=== PATIENT | female | born 1935 | race Caucasian/White ===

== ENCOUNTER → 2017-02-06 | Outpatient (CLI) | payer MEDICARE ==
[2017-02-06 16:37] LABS: Blood Urea Nitrogen 25 mg/dL (7-17); Non-African American GFR(MDRD) >60 (>60 ml/min/1.73 sqM)
--- NOTE | 2017-02-06 18:10 | CT ---
EXAMINATION TYPE: CT abdomen pelvis w con DATE OF EXAM: 02/06/2017 COMPARISON: NONE HISTORY: abdominal hematoma, pain from coughing, no injury CT DLP: 1475 mGycm Automated exposure control for dose reduction was used. TECHNIQUE: Helical acquisition of images was performed from the lung bases through the pelvis. CONTRAST: Performed with Oral Contrast and with IV Contrast, patient injected with 100 mL of Omnipaque 300. FINDINGS: Lung bases are clear of consolidation. There is no pleural effusion. Abdominal aorta is atheromatous. Liver shows no evidence of a mass. Bile ducts are not dilated. There are a few small cysts in the carmen er that measure up to 1 cm. Spleen pancreas gallbladder appear normal. Bile ducts are not dilated. Th ere is mild plaque formation on the abdominal aorta. There is aneurysm of the upper abdominal aorta m easures up to 3.6 cm. There is no adrenal mass. Kidneys show satisfactory contrast opacification. There is no hydronephrosi s. There are small bilateral cortical cysts that measure up to 1 cm. There is no retroperitoneal nina opathy. I see no intestinal wall thickening. There are no dilated loops. There is asymmetric thickeni ng of the anterior abdominal wall on the right side compared to the left consistent with intramuscula r hematoma. This measures up to 2 cm in thickness. There is no ascites. Bladder distends smoothly. I see no pelvic mass. The appendix appears normal. I see no bony destructive process. There is a degene rative first-degree L4-5 spondylolisthesis. There is moderate facet arthropathy at L4-5. I see no com pression fracture.: IMPRESSION: THERE IS THICKENING OF THE RIGHT ANTERIOR ABDOMINAL WALL CONSISTENT WITH INTRAMUSCULAR HEMATOMA. ATHEROSCLEROTIC VASCULAR DISEASE. UPPER ABDOMINAL AORTIC ANEURYSM. SMALL HEPATIC AND RENAL CYSTS.
== END | disposition home or self-care (01) ==
LOC: RADCTMAIN 15:29
PROVIDERS: ATTEND Internal Medicine Critical Care Medicine
DX: I71.4 Abdominal aortic aneurysm, without rupture (principal); I70.90 Unspecified atherosclerosis; N28.1 Cyst of kidney, acquired; K76.89 Other specified diseases of liver; R93.5 Abnormal findings on diagnostic imaging of other abdominal regions, including retroperitoneum
CPT/HCPCS: 82565; 84520; 74177; 36415; Q9967

== ENCOUNTER → 2017-03-02 | Outpatient (CLI) | payer MEDICARE ==
--- NOTE | 2017-03-03 09:33 | ECHOF ---
Referral Reason:R60.0 Edema MEASUREMENTS -------- HEIGHT: 165.1 cm WEIGHT: 77.1 kg BP: 136/70 IVSd: 1.0 cm (0.6 - 1.1) LVIDd: 5.3 cm (3.9 - 5.3) LVPWd: 1.1 cm (0.6 - 1.1) IVSs: 1.5 cm LVIDs: 2.5 cm LVPWs: 1.7 cm Ao Diam: 3.4 cm (2.0 - 3.7) AV Cusp: 1.9 cm (1.5 - 2.6) LA Diam: 3.5 cm (2.7 - 3.8) MV EXCURSION: 18.742 mm (> 18.000) MV EF SLOPE: 97 mm/s (70 - 150) EPSS: 0.3 cm MV E Brooks: 0.53 m/s MV DecT: 243 ms MV A Brooks: 0.78 m/s MV E/A Ratio: 0.68 RAP: 5.00 mmHg RVSP: 18.84 mmHg FINDINGS -------- Sinus rhythm. This was a technically good study. Left ventricular wall thickness is normal. Overall left ventricular systolic function is low-normal with, an EF between 50 - 55 %. Mid Basal Septal Hypokinesis. The right ventricle is normal in size and function. The left atrium is normal in size. The right atrium is normal in size. The aortic valve is trileaflet, and appears structurally normal. No aortic stenosis or regurgitation. The mitral valve leaflets are mildly thickened. There is trace mitral regurgitation. Trace tricuspid regurgitation present. The right ventricular systolic pressure, as measured by Doppler, is 18.84mmHg. Pulmonic valve appears structurally normal. The aortic root size is normal. The pericardium is normal. CONCLUSIONS -------- 1. Sinus rhythm. 2. The mitral valve leaflets are mildly thickened. 3. There is trace mitral regurgitation. 4. Trace tricuspid regurgitation present. 5. The right ventricular systolic pressure, as measured by Doppler, is 18.84mmHg. 6. Pulmonic valve appears structurally normal. 7. The aortic root size is normal. 8. The pericardium is normal. 9. This was a technically good study. 10. Left ventricular wall thickness is normal. 11. Overall left ventricular systolic function is low-normal with, an EF between 50 - 55 %. 12. Mid Basal Septal Hypokinesis. 13. The right ventricle is normal in size and function. 14. The left atrium is normal in size. 15. The right atrium is normal in size. 16. The aortic valve is trileaflet, and appears structurally normal. No aortic stenosis or regurgitation. PRODUCT EXAMINER: Nicolle Paige RDCS
== END | disposition home or self-care (01) ==
LOC: RADECHMAIN 13:02
PROVIDERS: ATTEND Family Medicine
DX: I08.1 Rheumatic disorders of both mitral and tricuspid valves (principal)
CPT/HCPCS: 93306

== ENCOUNTER → 2018-03-29 | Outpatient (CLI) | payer MEDICARE ==
--- NOTE | 2018-03-29 10:35 | US ---
EXAMINATION TYPE: US abdomen complete DATE OF EXAM: 03/29/2018 COMPARISON: CT CLINICAL HISTORY: K80.20 CALCULUS OF GALLBLADDER. patient had MRI at [facility] that showed gallstones and AA A. EXAM MEASUREMENTS: Liver Length: 13.1 cm Gallbladder Wall: 0.3 cm CBD: 0.6 cm Spleen: 10.8 cm Right Kidney: 10.2 x 4.2 x 5.2 cm Left Kidney: 11.3 x 5.6 x 5.6 cm Aorta: Prox 2.8 x 3.3 cm, Mid 2.8 x 2.6 cm, Distal 2.6 x 2.3 cm. Pancreas: wnl Liver: wnl Gallbladder: several tiny stones/gravel with shadowing. Evidence for sonographic Plummer's sign: No CBD: wnl Spleen: wnl Right Kidney: No hydronephrosis or masses seen Left Kidney: tiny cyst measures 1.1 x 1.0 x 0.9 cm. Upper IVC: wnl Abd Aorta: calcified, measures 3.3 cm in transverse plane proximally. The liver is homogenous. The intrahepatic portion of the IVC and proximal abdominal aorta are within normal limits. Common bile duct is unremarkable. The visualized portions of the pancreas are homog enous. The spleen is unremarkable. Kidneys are symmetric and free of hydronephrosis. No renal lesi ons are seen. IMPRESSION: 1. Small gallstones identified. 2. Abdominal aortic aneurysm. 3. Left renal cyst.
--- NOTE | 2018-04-02 13:35 | US ---
EXAMINATION TYPE: US venous doppler duplex LE DATE OF EXAM: 03/29/2018 9:07 AM COMPARISON: NONE CLINICAL HISTORY: R60.0 EDEMA. Bilateral edema SIDE PERFORMED: Bilateral TECHNIQUE: The lower extremity deep venous system is examined utilizing real time linear array sonog natasha with graded compression, doppler sonography and color-flow sonography. VESSELS IMAGED: External Iliac Vein (EIV) Common Femoral Vein Deep Femoral Vein Greater Saphenous Vein * Femoral Vein Popliteal Vein Proximal Calf Veins (* superficial vessels) Right Leg: Negative for DVT Left Leg: Negative for DVT Grayscale, color doppler, spectral doppler imaging performed of the deep veins of the bilateral lower extremities. There is normal flow, compressibility, vascular waveforms. IMPRESSION: No ultrasound evidence for acute DVT in either lower extremity.
== END | disposition home or self-care (01) ==
LOC: RADUSWWP 09:02
PROVIDERS: ATTEND Family Medicine
DX: K80.20 Calculus of gallbladder without cholecystitis without obstruction (principal); I71.4 Abdominal aortic aneurysm, without rupture; N28.1 Cyst of kidney, acquired; R60.0 Localized edema
CPT/HCPCS: 76700; 93970

== ENCOUNTER → 2018-10-09 | Outpatient (CLI) | payer MEDICARE ==
--- NOTE | 2018-10-09 14:55 | US ---
EXAMINATION TYPE: US duplex aorta DATE OF EXAM: 10/09/2018 COMPARISON: US 03/29/2018, CT 2017 CLINICAL HISTORY: I71.4 AAA. Proximal aorta AAA EXAM MEASUREMENTS: Abdominal Aorta: Proximal: 3.1 x 3.2cm Mid: 1.9 x 2.1cm Distal: 1.8 x 2.2cm Right Iliac: 0.7 x 1.1cm Left Iliac: 0.8 x 1.1cm Proximal aorta AAA measuring 3.1 x 3.2cm IMPRESSION: 1. Fusiform prominence proximal abdominal aorta measuring slightly greater than 3 cm. This is stable from comparison ultrasound.
== END | disposition home or self-care (01) ==
LOC: RADUSWWP 09:44
PROVIDERS: ATTEND Family Medicine
DX: I71.4 Abdominal aortic aneurysm, without rupture (principal)
CPT/HCPCS: 93979

== ENCOUNTER → 2018-11-06 | Outpatient (CLI) | payer MEDICARE ==
--- NOTE | 2018-11-08 09:49 | MM ---
Reason for exam: screening (asymptomatic). Last mammogram was performed 4 years and 7 months ago. History: Patient is postmenopausal. Physical Findings: A clinical breast exam by your physician is recommended on an annual basis and results should be correlated with mammographic findings. MG 3D Screening Mammo W/Cad Bilateral CC and MLO view(s) were taken. Prior study comparison: March 27, 2014, bilateral MG diagnostic mammo w CAD [facility]ANO. February 24, 2004, right breast special view mammogram. The breast tissue is almost entirely fat. No significant changes when compared with prior studies. ASSESSMENT: Benign, BI-RAD 2 RECOMMENDATION: Routine screening mammogram of both breasts in 1 year.
== END | disposition home or self-care (01) ==
LOC: RADMAMWWP 13:20
PROVIDERS: ATTEND Family Medicine
DX: Z12.31 Encounter for screening mammogram for malignant neoplasm of breast (principal)
CPT/HCPCS: 77063; 77067

== ENCOUNTER 2020-08-08 11:58 | Emergency (ER) | payer MEDICARE ==
[2020-08-08 12:18] VITALS: BP 138/83; PULSE 76; RESP 20; TEMP 98.1
[2020-08-08] MEDS ORDERED: SODIUM CHLORIDE 0.9% 1,000 ML IV ONE (13:36)
--- NOTE | 2020-08-08 13:43 | ED ---
Nausea/Vomiting/Diarrhea HPI - General Chief complaint: Nausea/Vomiting/Diarrhea Stated complaint: Diarrhea Time Seen by Provider: 08/08/20 13:06 Source: patient Mode of arrival: wheelchair Limitations: no limitations - History of Present Illness Initial comments: 84-year-old female patient presents to the emergency department today for evaluation of diarrhea. States she started having symptoms on . States she is having multiple episodes of watery diarrhea throughout each day. States she is unable to count how many episodes. Denies any blood in the stool. Denies abdominal pain. Denies any nausea, vomiting, or abdominal pain. Denies any new medications. Denies any recent antibiotic use. States she does have back problems and has been getting epidural injections. Denies any sick contacts or recent travel. Patient denies any recent rash, cough, shortness of breath, chest pain, numbness, tingling, dizziness, weakness, hematuria, dysuria, urinary urgency, urinary frequency, headache, visual changes, or any other complaints. - Related Data Home Medications Medication Instructions Recorded Confirmed Atenolol [Tenormin] 100 mg PO DAILY 08/08/20 08/08/20 Budesonide/Formoterol Fumarate 2 puff INHALATION BID 08/08/20 08/08/20 [Symbicort 160-4.5 Mcg Inhaler] Clopidogrel [Plavix] 75 mg PO DAILY 08/08/20 08/08/20 Diclofenac Sodium [Voltaren 1 applic TOPICAL DAILY 08/08/20 08/08/20 Arthritis Pain 1% Gel] Naproxen Sodium [Aleve] 440 mg PO BID 08/08/20 08/08/20 Statin(Unknown) 1 tab PO DAILY 08/08/20 08/08/20 Previous Rx's Medication Instructions Recorded Diphenox-Atrop 2.5-0.025 mg 1 tab PO QID PRN 3 Days #12 tab 08/08/20 [Lomotil] Diphenoxylate HCl/Atropine 1 tab PO QID PRN 3 Days #12 tab 08/08/20 [Lomotil 2.5-0.025 mg Tablet] Allergies Allergy/AdvReac Type Severity Reaction Status Date / Time No Known Allergies Allergy Verified 08/08/20 15:34 Review of Systems ROS Statement: Those systems with pertinent positive or pertinent negative responses have been documented in the HPI. ROS Other: All systems not noted in ROS Statement are negative. Past Medical History Past Medical History: COPD History of Any Multi-Drug Resistant Organisms: None Reported Past Surgical History: Orthopedic Surgery Additional Past Surgical History / Comment(s): lt ankle Past Psychological History: No Psychological Hx Reported Smoking Status: Current every day smoker Past Alcohol Use History: None Reported Past Drug Use History: None Reported General Exam Limitations: no limitations General appearance: alert, in no apparent distress, other (This is a well- developed, well-nourished elderly female patient in no acute distress. Vital signs upon presentation are temperature 98.1F, pulse 76, respirations 20, blood pressure 138/83, pulse ox 94% on room air.) Eye exam: Present: normal appearance, PERRL, EOMI. Absent: scleral icterus, conjunctival injection, periorbital swelling ENT exam: Present: normal exam, normal oropharynx, mucous membranes moist Respiratory exam: Present: normal lung sounds bilaterally. Absent: respiratory distress, wheezes, rales, rhonchi, stridor Cardiovascular Exam: Present: regular rate, normal rhythm, normal heart sounds. Absent: systolic murmur, diastolic murmur, rubs, gallop, clicks GI/Abdominal exam: Present: soft, normal bowel sounds. Absent: distended, tenderness, guarding, rebound, rigid Neurological exam: Present: alert, oriented X3, CN II-XII intact Psychiatric exam: Present: normal affect, normal mood Skin exam: Present: warm, dry, intact, normal color. Absent: rash Course Vital Signs 08/08/20 12:15 Temperature 98.1 F Pulse Rate 76 Respiratory 20 Rate Blood Pressure 138/83 O2 Sat by Pulse 94 L Oximetry Medical Decision Making - Medical Decision Making 84 year-old female patient presents to the emergency department for evaluation of diarrhea x2 days. She reports multiple episodes of watery diarrhea each day. Denies any fever or chills denies abdominal pain. Labs reviewed and are unremarkable. Stool was sent for C. diff was negative. Is also sent for culture. Coronavirus test was negative. I did send prescription for Lomotil to the pharmacy. She is instructed to increase fluids and to rest patient instructed to follow-up with her primary care physician for recheck in 1-2 days. She verbalizes understanding and agrees with this plan. - Lab Data Result diagrams: 08/08/20 14:03 08/08/20 14:03 Lab Results 08/08/20 08/08/20 08/08/20 Range/Units 14:03 14:03 14:03 WBC 4.2 (3.8-10.6) k/uL RBC 4.87 (3.80-5.40) m/uL Hgb 15.5 (11.4-16.0) gm/dL Hct 45.5 (34.0-46.0) % MCV 93.6 (80.0-100.0) fL MCH 31.9 (25.0-35.0) pg MCHC 34.1 (31.0-37.0) g/dL RDW 13.9 (11.5-15.5) % Plt Count 181 (150-450) k/uL MPV 7.9 Neutrophils % 70 % Lymphocytes % 14 % Monocytes % 11 % Eosinophils % 2 % Basophils % 1 % Neutrophils # 2.9 (1.3-7.7) k/uL Lymphocytes # 0.6 L (1.0-4.8) k/uL Monocytes # 0.5 (0-1.0) k/uL Eosinophils # 0.1 (0-0.7) k/uL Basophils # 0.0 (0-0.2) k/uL Sodium 137 (137-145) mmol/L Potassium 4.0 (3.5-5.1) mmol/L Chloride 108 H (98-107) mmol/L Carbon Dioxide 23 (22-30) mmol/L Anion Gap 6 mmol/L BUN 16 (7-17) mg/dL Creatinine 0.65 (0.52-1.04) mg/dL Est GFR (CKD-EPI)AfAm >90 (>60 ml/min/1.73 sqM) Est GFR (CKD-EPI)NonAf 83 (>60 ml/min/1.73 sqM) Glucose 90 (74-99) mg/dL Calcium 9.0 (8.4-10.2) mg/dL Magnesium 2.2 (1.6-2.3) mg/dL Total Bilirubin 1.2 (0.2-1.3) mg/dL AST 27 (14-36) U/L ALT 17 (4-34) U/L Alkaline Phosphatase 92 (38-126) U/L Total Protein 7.1 (6.3-8.2) g/dL Albumin 3.8 (3.5-5.0) g/dL C. difficile (EIA) Intrp (Negative) Coronavirus (PCR) Not Detected (Not Detectd) 08/08/20 Range/Units 15:44 WBC (3.8-10.6) k/uL RBC (3.80-5.40) m/uL Hgb (11.4-16.0) gm/dL Hct (34.0-46.0) % MCV (80.0-100.0) fL MCH (25.0-35.0) pg MCHC (31.0-37.0) g/dL RDW (11.5-15.5) % Plt Count (150-450) k/uL MPV Neutrophils % % Lymphocytes % % Monocytes % % Eosinophils % % Basophils % % Neutrophils # (1.3-7.7) k/uL Lymphocytes # (1.0-4.8) k/uL Monocytes # (0-1.0) k/uL Eosinophils # (0-0.7) k/uL Basophils # (0-0.2) k/uL Sodium (137-145) mmol/L Potassium (3.5-5.1) mmol/L Chloride (98-107) mmol/L Carbon Dioxide (22-30) mmol/L Anion Gap mmol/L BUN (7-17) mg/dL Creatinine (0.52-1.04) mg/dL Est GFR (CKD-EPI)AfAm (>60 ml/min/1.73 sqM) Est GFR (CKD-EPI)NonAf (>60 ml/min/1.73 sqM) Glucose (74-99) mg/dL Calcium (8.4-10.2) mg/dL Magnesium (1.6-2.3) mg/dL Total Bilirubin (0.2-1.3) mg/dL AST (14-36) U/L ALT (4-34) U/L Alkaline Phosphatase (38-126) U/L Total Protein (6.3-8.2) g/dL Albumin (3.5-5.0) g/dL C. difficile (EIA) Intrp Negative (Negative) Coronavirus (PCR) (Not Detectd) Disposition Clinical Impression: Diarrhea Disposition: HOME SELF-CARE Condition: Good Instructions (If sedation given, give patient instructions): Acute Diarrhea (ED) Additional Instructions: Increase fluids. Rest. Follow-up through primary care physician for recheck in 1-2 days. Return to the emergency department immediately for any new, worsening, or concerning symptoms Prescriptions: Diphenox-Atrop 2.5-0.025 mg [Lomotil] 1 tab PO QID PRN 3 Days #12 tab PRN Reason: Diarrhea Diphenoxylate HCl/Atropine [Lomotil 2.5-0.025 mg Tablet] 1 tab PO QID PRN 3 Days #12 tab PRN Reason: Diarrhea Is patient prescribed a controlled substance at d/c from ED?: No Referrals: Calin Lyle DO [Primary Care Provider] - 1-2 days Time of Disposition: 17:16
[2020-08-08 14:15] LABS: Basophils % (A) 1 %; Eosinophils # (A) 0.1 k/uL (0-0.7); Eosinophils % (A) 2 %; HCT 45.5 % (34.0-46.0); HGB 15.5 gm/dL (11.4-16.0); Lymphocytes # (A) 0.6 k/uL (1.0-4.8); Lymphocytes % (A) 14 %; MCH 31.9 pg (25.0-35.0); MCHC 34.1 g/dL (31.0-37.0); MCV 93.6 fL (80.0-100.0); Mean Platelet Volume 7.9; Monocytes # (A) 0.5 k/uL (0-1.0); Monocytes % (A) 11 %; Neutrophils # (A) 2.9 k/uL (1.3-7.7); Neutrophils % (A) 70 %; Platelet Count 181 k/uL (150-450); RBC 4.87 m/uL (3.80-5.40); RDW 13.9 % (11.5-15.5); WBC 4.2 k/uL (3.8-10.6)
[2020-08-08 14:26] LABS: ALT 17 U/L (4-34); AST 27 U/L (14-36); African American GFR (CKD) >90 (>60 ml/min/1.73 sqM); Albumin 3.8 g/dL (3.5-5.0); Alkaline Phosphatase 92 U/L (38-126); Anion Gap 6 mmol/L; Blood Urea Nitrogen 16 mg/dL (7-17); Carbon Dioxide 23 mmol/L (22-30); Chloride 108 mmol/L (98-107); Glucose 90 mg/dL (74-99); Magnesium 2.2 mg/dL (1.6-2.3); Non-African American GFR(CKD) 83 (>60 ml/min/1.73 sqM); Sodium 137 mmol/L (137-145); Total Bilirubin 1.2 mg/dL (0.2-1.3); Total Protein 7.1 g/dL (6.3-8.2)
== END 2020-08-08 17:57 | disposition home or self-care (01) ==
LOC: EC 11:58
DX: Z03.818 Encounter for observation for suspected exposure to other biological agents ruled out (principal); R19.7 Diarrhea, unspecified; J44.9 Chronic obstructive pulmonary disease, unspecified; F17.200 Nicotine dependence, unspecified, uncomplicated; Z79.51 Long term (current) use of inhaled steroids
CPT/HCPCS: 36415; 80053; 83630; 83735; 85025; 87045; 87046; 87324; 87635; 96360; 96361; 99284

== ENCOUNTER 2020-08-13 19:19 | Observation (INO) | payer MEDICARE ==
[2020-08-13] MEDS: SODIUM CHLORIDE 0.9% 1,000 ML IV SCH (20:11)
[2020-08-13 20:27] LABS: Basophils % (A) 0 %; Eosinophils % (A) 0 %; HCT 42.1 % (34.0-46.0); HGB 13.9 gm/dL (11.4-16.0); Lymphocytes # (A) 0.5 k/uL (1.0-4.8); Lymphocytes % (A) 5 %; MCH 30.5 pg (25.0-35.0); MCHC 32.9 g/dL (31.0-37.0); MCV 92.6 fL (80.0-100.0); Mean Platelet Volume 7.7; Monocytes # (A) 0.4 k/uL (0-1.0); Monocytes % (A) 4 %; Neutrophils % (A) 91 %; Platelet Count 220 k/uL (150-450); RBC 4.55 m/uL (3.80-5.40); RDW 14.4 % (11.5-15.5)
[2020-08-13 20:35] LABS: ALT 47 U/L (4-34); AST 93 U/L (14-36); African American GFR (CKD) >90 (>60 ml/min/1.73 sqM); Albumin 3.5 g/dL (3.5-5.0); Alkaline Phosphatase 135 U/L (38-126); Anion Gap 7 mmol/L; Blood Urea Nitrogen 13 mg/dL (7-17); Calcium 8.5 mg/dL (8.4-10.2); Carbon Dioxide 23 mmol/L (22-30); Chloride 103 mmol/L (98-107); Glucose 101 mg/dL (74-99); Lipase <10 U/L (23-300); Non-African American GFR(CKD) 83 (>60 ml/min/1.73 sqM); Potassium 3.7 mmol/L (3.5-5.1); Sodium 133 mmol/L (137-145); Total Bilirubin 2.3 mg/dL (0.2-1.3); Total Protein 6.6 g/dL (6.3-8.2)
--- NOTE | 2020-08-13 21:06 | CT ---
EXAMINATION TYPE: CT abdomen pelvis w con DATE OF EXAM: 08/13/2020 COMPARISON: 02/06/2017 HISTORY: diarrhea x1 week CT DLP: 872.5 mGycm Automated exposure control for dose reduction was used. TECHNIQUE: Helical acquisition of images was performed from the lung bases through the pelvis. CONTRAST: Performed without Oral Contrast and with IV Contrast, patient injected with 100 mL of Isovu e 300. FINDINGS: LUNG BASES: There is mild cardiomegaly with left ventricular and left atrial dilation and with modera te marked left and right coronary calcifications. LIVER/GB: No significant abnormality is appreciated. PANCREAS: No significant abnormality is seen. SPLEEN: No significant abnormality is seen. ADRENALS: No significant abnormality is seen. KIDNEYS: No significant abnormality is seen. PERITONEAL CAVITY: Small volume of peritoneal fluid in the pelvis dependently noted. RETROPERITONEAL ADENOPATHY: None visualized REPRODUCTIVE ORGANS: No significant abnormality is seen URINARY BLADDER: No significant abnormality is seen. PELVIC ADENOPATHY: None visualized. OSSEOUS STRUCTURES: No significant abnormality is seen. BOWEL: There is no bowel obstruction. The appendix is negative. There is indistinctness to the desc ending colon and proximal sigmoid, with edematous reticulation throughout its mesocolon. There is no focal diverticulitis. No pneumatosis or pneumoperitoneum VASCULATURE: There are marked nonaneurysmal atherosclerotic changes throughout the arterial anatomy o f the abdomen and pelvis. The celiac axis, SMA, and RAISA are patent, but the celiac axis shows proxima l stenosis with poststenotic dilatation, and the RAISA shows ostial stenosis. Venous structures unremar kable. IMPRESSION: 1. MILD SIGMOID AND DESCENDING COLITIS PATTERN, SUGGESTING INFECTIOUS/INFLAMMATORY ETIOLOGY. 2. SMALL VOLUME CUL-DE-SAC PERITONEAL FLUID.
[2020-08-13 21:35] LABS: T4, Free (Free Thyroxine) 0.49 ng/dL (0.78-2.19)
[2020-08-13] MEDS ORDERED: metroNIDAZOLE-NS PMX 500 MG in SALINE 1 100ML.BAG IVPB STA (21:35)
[2020-08-13] MEDS ORDERED: cefTRIAXone IN SWFI 1,000 MG/10 ML SYRINGE IVP STA (21:35)
--- NOTE | 2020-08-13 21:35 | ED ---
Nausea/Vomiting/Diarrhea HPI - General Chief complaint: Nausea/Vomiting/Diarrhea Stated complaint: Revisit,diarrhea Time Seen by Provider: 08/13/20 19:25 Source: patient, family Mode of arrival: ambulatory Limitations: no limitations - History of Present Illness Initial comments: Is an 84-year-old female presents with history of COPD who presents to the emergency room with reported loose stool. According to the patient she started having diarrhea on . She was seen in the emergency department on Monday DC home with Stefan. States she's been attempting to take the medications as directed however it hasn't helped. Denies any black, tarry or sticky stools. No history of bowel issues in the past. She denies any abdominal pain. Admits to nausea. No vomiting. Family states that she lives alone and hasn't been eating or drinking therefore they're concerned for her well-being. Patient denies any changes in her urination. No back or flank pain. No other alleviating, precipitating or modifying factors - Related Data Home Medications Medication Instructions Recorded Confirmed Budesonide/Formoterol Fumarate 2 puff INHALATION BID 08/08/20 08/13/20 [Symbicort 160-4.5 Mcg Inhaler] Clopidogrel [Plavix] 75 mg PO DAILY 08/08/20 08/13/20 Diclofenac Sodium [Voltaren 1 applic TOPICAL DAILY 08/08/20 08/13/20 Arthritis Pain 1% Gel] Previous Rx's Medication Instructions Recorded Cephalexin [Keflex] 250 mg PO TID #6 cap 08/15/20 Levothyroxine Sodium [Synthroid] 75 mcg PO DAILY@0630 #30 tab 08/15/20 Lisinopril-Hctz 20-12.5 mg 1 tab PO BID #60 tab 08/15/20 [Zestoretic 20-12.5] Loperamide [Imodium] 2 mg PO QID PRN #30 cap 08/15/20 Naproxen Sodium [Aleve] 220 mg PO BID #0 08/15/20 Nicotine 21Mg/24Hr Patch [Habitrol] 1 patch TRANSDERM DAILY #14 patch 08/15/20 Psyllium Husk 100% [Metamucil 6 gm PO BID #60 packet 08/15/20 Packet] metroNIDAZOLE [Flagyl] 500 mg PO TID #21 tab 08/15/20 Allergies Allergy/AdvReac Type Severity Reaction Status Date / Time No Known Allergies Allergy Verified 08/13/20 22:29 Review of Systems ROS Statement: Those systems with pertinent positive or pertinent negative responses have been documented in the HPI. ROS Other: All systems not noted in ROS Statement are negative. Past Medical History Past Medical History: COPD History of Any Multi-Drug Resistant Organisms: None Reported Past Surgical History: Orthopedic Surgery Additional Past Surgical History / Comment(s): lt ankle Past Psychological History: No Psychological Hx Reported Smoking Status: Current every day smoker Past Alcohol Use History: Rare Past Drug Use History: None Reported General Exam Limitations: no limitations General appearance: alert, in no apparent distress Head exam: Present: atraumatic, normocephalic, normal inspection Eye exam: Present: normal appearance, PERRL, EOMI. Absent: scleral icterus, conjunctival injection, periorbital swelling ENT exam: Present: normal exam, mucous membranes dry Neck exam: Present: normal inspection. Absent: tenderness, meningismus, lymphadenopathy Respiratory exam: Present: normal lung sounds bilaterally. Absent: respiratory distress, wheezes, rales, rhonchi, stridor Cardiovascular Exam: Present: regular rate, normal rhythm, normal heart sounds. Absent: systolic murmur, diastolic murmur, rubs, gallop, clicks GI/Abdominal exam: Present: soft, normal bowel sounds. Absent: distended, tenderness, guarding, rebound, rigid Extremities exam: Present: normal inspection, full ROM, normal capillary refill. Absent: tenderness, pedal edema, joint swelling, calf tenderness Back exam: Present: normal inspection Neurological exam: Present: alert, oriented X3, CN II-XII intact Psychiatric exam: Present: normal affect, normal mood Skin exam: Present: warm, dry, intact, normal color. Absent: rash Course Vital Signs 08/13/20 08/13/20 08/14/20 19:23 23:26 06:25 Temperature 97.8 F Pulse Rate 95 63 Pulse Rate [ Right Buncher Operator] Respiratory 18 17 Rate Blood Pressure 117/71 125/75 137/84 Blood Pressure [Right Arm] O2 Sat by Pulse 98 92 L Oximetry 08/14/20 08:00 Temperature 97.1 F L Pulse Rate Pulse Rate [ 68 Right Buncher Operator] Respiratory 18 Rate Blood Pressure Blood Pressure 124/76 [Right Arm] O2 Sat by Pulse 97 Oximetry Medical Decision Making - Medical Decision Making The patient is placed into room 19. A thorough history and physical exam was performed. Peripheral IV is established and the patient was given 75 mL of saline per hour. I did review the patient's stool studies. She was negative for C. diff. Lactoferrin does come back positive. Because of this I did recommend repeating the patient's laboratory studies and CT her abdomen and pelvis even though she does have abdominal pain. Lab studies demonstrate a sodium of 133. Free T4 is low at 0.49. CT of the patient's abdomen and pelvis is performed which demonstrates mild sigmoid and descending colitis. Suggesting infectious versus inflammatory etiology. I discussed results of Dr. Jonas. Patient was given Rocephin and Flagyl. Did recommend hospitalization for which the patient did agree to. Patient is currently awaiting a bed on the floor - Lab Data Result diagrams: 08/14/20 08:13 08/14/20 08:18 Lab Results 08/13/20 08/13/20 08/13/20 Range/Units 20:08 20:08 20:08 WBC 11.0 H (3.8-10.6) k/uL RBC 4.55 (3.80-5.40) m/uL Hgb 13.9 (11.4-16.0) gm/dL Hct 42.1 (34.0-46.0) % MCV 92.6 (80.0-100.0) fL MCH 30.5 (25.0-35.0) pg MCHC 32.9 (31.0-37.0) g/dL RDW 14.4 (11.5-15.5) % Plt Count 220 (150-450) k/uL MPV 7.7 Neutrophils % 91 % Lymphocytes % 5 % Monocytes % 4 % Eosinophils % 0 % Basophils % 0 % Neutrophils # 10.0 H (1.3-7.7) k/uL Lymphocytes # 0.5 L (1.0-4.8) k/uL Monocytes # 0.4 (0-1.0) k/uL Eosinophils # 0.0 (0-0.7) k/uL Basophils # 0.0 (0-0.2) k/uL Sodium 133 L (137-145) mmol/L Potassium 3.7 (3.5-5.1) mmol/L Chloride 103 (98-107) mmol/L Carbon Dioxide 23 (22-30) mmol/L Anion Gap 7 mmol/L BUN 13 (7-17) mg/dL Creatinine 0.64 (0.52-1.04) mg/dL Est GFR (CKD-EPI)AfAm >90 (>60 ml/min/1.73 sqM) Est GFR (CKD-EPI)NonAf 83 (>60 ml/min/1.73 sqM) Glucose 101 H (74-99) mg/dL Plasma Lactic Acid Ryan 1.4 (0.7-2.0) mmol/L Calcium 8.5 (8.4-10.2) mg/dL Total Bilirubin 2.3 H (0.2-1.3) mg/dL AST 93 H (14-36) U/L ALT 47 H (4-34) U/L Alkaline Phosphatase 135 H (38-126) U/L Total Protein 6.6 (6.3-8.2) g/dL Albumin 3.5 (3.5-5.0) g/dL Lipase <10 L (23-300) U/L TSH 43.200 H (0.465-4.680) mIU/L Free T4 0.49 L (0.78-2.19) ng/dL Disposition Clinical Impression: Diarrhea, Nausea, Colitis Disposition: ADMITTED IP TO THIS [facility] Condition: Stable Is patient prescribed a controlled substance at d/c from ED?: No Decision to Admit Reason: Admit from EC Decision Date: 08/13/20 Decision Time: 21:34
[2020-08-13] MEDS ORDERED: NALOXONE 0.4 MG/ML 1 ML VIAL IV PRN (21:36)
[2020-08-13] MEDS ORDERED: NICOTINE 14MG/24HR PATCH TRANSDERM STA (22:35)
[2020-08-14 02:07] LABS: Amorphous Sediment,Urine Rare /hpf; Appearance,Urine Clear (Clear); Bacteria,Urine Rare /hpf; Bilirubin,Urine Negative (Negative); Blood,Urine Negative (Negative); Color,Urine Yellow; Glucose,Urine (UA) Negative (Negative); Ketones,Urine 1+ (Negative); Leukocyte Esterase,Urine Negative (Negative); Mucus,Urine Rare /hpf; Nitrite,Urine Positive (Negative); Protein,Urine Trace (Negative); RBC,Urine 1 /hpf (0-5); Squamous Epithelial Cell,Urine 3 /hpf (0-4); Urobilinogen,Urine <2.0 mg/dL (<2.0); WBC,Urine 3 /hpf (0-5)
[2020-08-14 02:20] LABS: Specific Gravity,Urine >1.050 (1.001-1.035)
[2020-08-14 08:37] LABS: Basophils % (A) 0 %; Eosinophils # (A) 0.1 k/uL (0-0.7); Eosinophils % (A) 1 %; HCT 40.8 % (34.0-46.0); Lymphocytes # (A) 0.6 k/uL (1.0-4.8); Lymphocytes % (A) 8 %; MCHC 34.4 g/dL (31.0-37.0); Mean Platelet Volume 7.4; Monocytes # (A) 0.4 k/uL (0-1.0); Monocytes % (A) 5 %; Neutrophils # (A) 7.1 k/uL (1.3-7.7); Neutrophils % (A) 86 %; Platelet Count 204 k/uL (150-450); RBC 4.39 m/uL (3.80-5.40); RDW 13.9 % (11.5-15.5); WBC 8.2 k/uL (3.8-10.6)
[2020-08-14 08:51] LABS: ALT 67 U/L (4-34); AST 109 U/L (14-36); African American GFR (CKD) >90 (>60 ml/min/1.73 sqM); Albumin 3.3 g/dL (3.5-5.0); Alkaline Phosphatase 175 U/L (38-126); Anion Gap 6 mmol/L; Bilirubin, Delta 1.1 mg/dL (0.0-0.2); Bilirubin,Unconjugated 0.8 mg/dL (0.0-1.1); Blood Urea Nitrogen 10 mg/dL (7-17); Calcium 8.5 mg/dL (8.4-10.2); Carbon Dioxide 24 mmol/L (22-30); Chloride 104 mmol/L (98-107); Glucose 97 mg/dL (74-99); Non-African American GFR(CKD) 85 (>60 ml/min/1.73 sqM); Potassium 3.2 mmol/L (3.5-5.1); Sodium 134 mmol/L (137-145); Total Bilirubin 1.9 mg/dL (0.2-1.3); Total Protein 6.3 g/dL (6.3-8.2)
[2020-08-14] MEDS ORDERED: NAPROXEN 250 MG TAB PO SCH (10:45)
[2020-08-14] MEDS: DICLOFENAC SODIUM GEL 100 GM TUBE TOPICAL SCH (11:04)
[2020-08-14] MEDS: CLOPIDOGREL 75 MG TAB PO SCH (11:05)
[2020-08-14] MEDS: SODIUM CHLORIDE 0.9% 1,000 ML IV SCH (11:17)
[2020-08-14] MEDS: SYMBICORT 160-4.5 MCG INHALER INHALATION SCH ×2 (13:40→20:43)
[2020-08-14] MEDS ORDERED: LOPERAMIDE 2 MG CAP PO PRN (14:06)
[2020-08-14] MEDS: NICOTINE 21MG/24HR PATCH TRANSDERM SCH (16:27)
[2020-08-14] MEDS: CEPHALEXIN 250 MG CAP PO SCH ×2 (16:27→21:06)
[2020-08-14] MEDS: metroNIDAZOLE 500 MG TAB PO SCH ×2 (16:27→21:06)
[2020-08-14] MEDS: NAPROXEN 250 MG TAB PO SCH (21:05)
[2020-08-14] MEDS: PSYLLIUM HUSK 100% 6 GM PACKET PO SCH (21:06)
[2020-08-14] MEDS ORDERED: LEVOTHYROXINE 75 MCG TAB PO SCH (21:24)
[2020-08-14] MEDS ORDERED: ENOXAPARIN 40 MG/0.4 ML SYRINGE SQ SCH (21:30)
[2020-08-14] MEDS ORDERED: METOPROLOL TARTRATE 12.5 MG TAB PO SCH (21:30)
--- NOTE | 2020-08-14 22:09 | P.HPIM ---
History of Present Illness H&P Date: 08/14/20 Chief Complaint: Diarrhea History of presenting complaint: This is a 84-year-old patient. Who lives by herself. Does use a walker to get about. For about 2 weeks she's been having one or 2 bowel movements a day. She describes as explosive loose. No blood. No abdominal pain. No nausea vomiting. Able to eat okay. No fever no chills. She was here in the ER about 5 days ago. Managed conservatively. Family thinks not been eating. Patient tells me she is hungry. She is a long-standing smoker. No abdominal bloating. No history of travel Review of systems: GEN.: Tired EYES: None HEENT: None NECK: None RESPIRATORY: None CARDIOVASCULAR: None GASTROINTESTINAL: As above GENITOURINARY: None MUSCULOSKELETAL: Joint pains LYMPHATICS: None HEMATOLOGICAL: None PSYCHIATRY: None NEUROLOGICAL: Uses a walker Past medical history to include: COPD, hypertension, osteoarthritis Family history: Reviewed, noncontributory to presentation Physical examination: VITAL SIGNS: 97.8, 95, 18, 117/71, 98% room air GENERAL: BMI 25.8,. Sitting at the edge of the bed, eating EYES: Pupils equal. Conjunctiva normal. HEENT: External appearance of nose and ears normal, oral cavity grossly normal. NECK: JVD not raised; masses not palpable. HEART: First and second heart sounds are normal; no edema. LUNGS: Respiratory rate normal; decreased breath sounds. ABDOMEN: Soft, nontender, liver spleen not palpable, no masses palpable. PSYCH: Alert and oriented x3; mood and affect normal MUSCULAR skeletal: Evidence of OA. NEUROLOGICAL: Cranial nerves grossly intact; no facial asymmetry, power and sensation grossly intact. LYMPHATICS: No lymph nodes palpable in the axilla and neck, INVESTIGATIONS, reviewed in the clinical context: White count 11 hemoglobin 13.9 potassium 3.7 creatinine 0.64 bilirubin 2.3 AST 93 ALT 47 TSH 43.2. T4 0.49 Computed tomography scan of the abdomen-that is indistinctness to the descending colon and proximal sigmoid with 80 medicine reticulation throughout the mesocolon Assessment: -Patient been having about one or 2 loose bowel movements for last about 2 weeks. No blood. No abdominal pain. No vomiting. Appetite appears to be fair. Computed tomography scan is showing some evidence of mild colitis. There is no fever no chills. -COPD in a current smoker -Chronic nicotine dependence patient cigarette smoker -Primary osteoarthritis -Chronic gait dysfunction uses a walker -Mildly elevated LFTs and bilirubin -Hypothyroid. Patient does be she has a new prescription from a family doctor that has not been picked up from the pharmacy Plan: GI was consulted to started the patient on Flagyl and Keflex. I will add Met amucil. Patient is receiving IV fluids. We'll start the patient on Synthroid 88 g per day. Home medications be resumed. Nicotine patch. Diet advanced. Soft bland. We'll get a liver ultrasound. Also do a acute hepatitis panel. Past Medical History Past Medical History: COPD History of Any Multi-Drug Resistant Organisms: None Reported Past Surgical History: Orthopedic Surgery Additional Past Surgical History / Comment(s): lt ankle Past Psychological History: No Psychological Hx Reported Smoking Status: Current every day smoker Past Alcohol Use History: Rare Past Drug Use History: None Reported Medications and Allergies Home Medications Medication Instructions Recorded Confirmed Type Atenolol [Tenormin] 100 mg PO DAILY 08/08/20 08/13/20 History Budesonide/Formoterol Fumarate 2 puff INHALATION BID 08/08/20 08/13/20 History [Symbicort 160-4.5 Mcg Inhaler] Clopidogrel [Plavix] 75 mg PO DAILY 08/08/20 08/13/20 History Diclofenac Sodium [Voltaren 1 applic TOPICAL DAILY 08/08/20 08/13/20 History Arthritis Pain 1% Gel] Naproxen Sodium [Aleve] 440 mg PO BID 08/08/20 08/13/20 History Allergies Allergy/AdvReac Type Severity Reaction Status Date / Time No Known Allergies Allergy Verified 08/13/20 22:29 Physical Exam Vitals: Vital Signs Temp Pulse Pulse Resp BP BP Pulse Ox 08/14/20 08:00 97.1 F L 68 18 124/76 97 08/14/20 06:25 63 17 137/84 92 L 08/13/20 23:26 125/75 08/13/20 19:23 97.8 F 95 18 117/71 98 Intake and Output 08/13/20 08/14/20 08/14/20 22:59 06:59 14:59 Other: Weight 70.307 kg Results CBC & Chem 7: 08/14/20 08:13 08/14/20 08:18 Labs: Abnormal Lab Results - Last 24 Hours (Table) 08/13/20 08/13/20 08/14/20 Range/Units 20:08 20:08 01:19 WBC 11.0 H (3.8-10.6) k/uL Neutrophils # 10.0 H (1.3-7.7) k/uL Lymphocytes # 0.5 L (1.0-4.8) k/uL Sodium 133 L (137-145) mmol/L Potassium (3.5-5.1) mmol/L Glucose 101 H (74-99) mg/dL Total Bilirubin 2.3 H (0.2-1.3) mg/dL Delta Bilirubin (0.0-0.2) mg/dL AST 93 H (14-36) U/L ALT 47 H (4-34) U/L Alkaline Phosphatase 135 H (38-126) U/L Albumin (3.5-5.0) g/dL Lipase <10 L (23-300) U/L TSH 43.200 H (0.465-4.680) mIU/L Free T4 0.49 L (0.78-2.19) ng/dL Ur Specific [place] >1.050 H (1.001-1.035) Urine Protein Trace H (Negative) Urine Ketones 1+ H (Negative) Urine Nitrite Positive H (Negative) Amorphous Sediment Rare H (None) /hpf Urine Bacteria Rare H (None) /hpf Urine Mucus Rare H (None) /hpf 08/14/20 08/14/20 Range/Units 08:13 08:18 WBC (3.8-10.6) k/uL Neutrophils # (1.3-7.7) k/uL Lymphocytes # 0.6 L (1.0-4.8) k/uL Sodium 134 L (137-145) mmol/L Potassium 3.2 L (3.5-5.1) mmol/L Glucose (74-99) mg/dL Total Bilirubin 1.9 H (0.2-1.3) mg/dL Delta Bilirubin 1.1 H (0.0-0.2) mg/dL AST 109 H (14-36) U/L ALT 67 H (4-34) U/L Alkaline Phosphatase 175 H (38-126) U/L Albumin 3.3 L (3.5-5.0) g/dL Lipase (23-300) U/L TSH (0.465-4.680) mIU/L Free T4 (0.78-2.19) ng/dL Ur Specific [place] (1.001-1.035) Urine Protein (Negative) Urine Ketones (Negative) Urine Nitrite (Negative) Amorphous Sediment (None) /hpf Urine Bacteria (None) /hpf Urine Mucus (None) /hpf
[2020-08-15 02:46] VITALS: RESP 18
[2020-08-15] MEDS ORDERED: LEVOTHYROXINE 75 MCG TAB PO SCH (06:30)
[2020-08-15] MEDS ORDERED: ENOXAPARIN 40 MG/0.4 ML SYRINGE SQ SCH (09:00)
[2020-08-15] MEDS ORDERED: METOPROLOL TARTRATE 12.5 MG TAB PO SCH (09:00)
[2020-08-15 09:13] VITALS: BP 152/91; PULSE 74; TEMP 97.4
--- NOTE | 2020-08-15 09:17 | US ---
EXAMINATION TYPE: US abdomen limited DATE OF EXAM: 08/15/2020 COMPARISON: NONE CLINICAL HISTORY: Mildly elevated LFT, bilirubin. Pain EXAM MEASUREMENTS: Liver Length: 13.5 cm Gallbladder Wall: .2 cm CBD: .5 cm Right Kidney: 8.5 x 4.2 x 5.3 cm Pancreas: Obscured by bowel gas Liver: wnl Gallbladder: Multiple stones seen Evidence for sonographic Plummer's sign: No CBD: wnl Right Kidney: wnl IMPRESSION: 1. Cholelithiasis without acute changes to suggest cholecystitis.
[2020-08-15] MEDS: PSYLLIUM HUSK 100% 6 GM PACKET PO SCH (09:24)
[2020-08-15] MEDS: NAPROXEN 250 MG TAB PO SCH (09:24)
[2020-08-15] MEDS: CLOPIDOGREL 75 MG TAB PO SCH (09:24)
[2020-08-15] MEDS: DICLOFENAC SODIUM GEL 100 GM TUBE TOPICAL SCH (09:24)
[2020-08-15] MEDS: metroNIDAZOLE 500 MG TAB PO SCH (09:24)
[2020-08-15] MEDS: NICOTINE 21MG/24HR PATCH TRANSDERM SCH (09:25)
[2020-08-15] MEDS: CEPHALEXIN 250 MG CAP PO SCH (09:25)
[2020-08-15] MEDS: SYMBICORT 160-4.5 MCG INHALER INHALATION SCH (09:37)
[2020-08-15 10:46] LABS: Hepatitis A Antibody IgM Non-Reactive (Non-Reactive); Hepatitis B Core IgM Non-Reactive (Non-Reactive); Hepatitis B Surface Antigen Non-Reactive (Non-Reactive); Hepatitis C IgG Antibody Non-Reactive (Non-Reactive)
--- NOTE | 2020-08-15 12:29 | P.CONS ---
History of Present Illness - Reason for Consult Consult date: 08/14/20 Diarrhea Requesting physician: Refugio Jonas - Chief Complaint Diarrhea - History of Present Illness 84-year-old female with a medical history significant for COPD who presented to the hospital due to complaints of diarrhea. The patient had been experiencing 2 weeks of frequent loose bowel movements. She was started on antidiarrheal at home which she felt initially improved her symptoms, and reports that over the past 3-4 days she is no longer been having diarrhea. No abdominal pain reported. No nausea or vomiting. She believes her last colonoscopy was 1 year ago. On presentation the patient had a computed tomography scan of the abdomen which showed mild sigmoid and descending colitis with a pattern suggestive of infectious colitis. Laboratory evaluation significant for WBC 8.2, hemoglobin 14, platelet count 204,000, total bilirubin 1.9, alkaline phosphatase 125, AST 109 and ALT 67. Testing for Clostridium difficile on 08/08/2020 negative with stool testing for occult blood also negative. Review of Systems REVIEW OF SYSTEMS: CONSTITUTIONAL: Denies any fevers, chills, weight change or fatigue. CARDIOVASCULAR: Denies any chest pain, palpitations high or low blood pressures RESPIRATORY: Denies any shortness of breath, hemoptysis or cough. GENITOURINARY: No dysuria or hematuria. MUSCULOSKELETAL: No weakness reported. SKIN: Denies any new rashes or lesions, jaundice or pallor. PSYCHIATRIC: Denies any depression or anxiety. NEUROLOGY: Denies headache, denies any new focal deficits. EARS/NOSE/THROAT: No recent hearing change, congestion, nasal discharge or sore throat. EYES: No pain in eyes, discharge or change in vision. GASTROINTESTINAL: As per HPI. Past Medical History Past Medical History: COPD History of Any Multi-Drug Resistant Organisms: None Reported Past Surgical History: Orthopedic Surgery Additional Past Surgical History / Comment(s): lt ankle Past Anesthesia/Blood Transfusion Reactions: No Reported Reaction Additional Past Anesthesia/Blood Transfusion Reaction / Comm: no blood transfusions Past Psychological History: No Psychological Hx Reported Smoking Status: Current every day smoker Past Alcohol Use History: Rare Past Drug Use History: None Reported Additional History: Family history: Reviewed with the patient and noncontributory to current medical presentation Medications and Allergies Home Medications Medication Instructions Recorded Confirmed Type Atenolol [Tenormin] 100 mg PO DAILY 08/08/20 08/13/20 History Budesonide/Formoterol Fumarate 2 puff INHALATION BID 08/08/20 08/13/20 History [Symbicort 160-4.5 Mcg Inhaler] Clopidogrel [Plavix] 75 mg PO DAILY 08/08/20 08/13/20 History Diclofenac Sodium [Voltaren 1 applic TOPICAL DAILY 08/08/20 08/13/20 History Arthritis Pain 1% Gel] Naproxen Sodium [Aleve] 440 mg PO BID 08/08/20 08/13/20 History Allergies Allergy/AdvReac Type Severity Reaction Status Date / Time No Known Allergies Allergy Verified 08/13/20 22:29 Physical Exam Vitals: Vital Signs Temp Pulse Pulse Pulse Resp BP BP 08/14/20 15:00 69 16 08/14/20 14:26 97.5 F L 69 16 140/81 08/14/20 08:00 97.1 F L 68 18 124/76 08/14/20 06:25 63 17 137/84 08/13/20 23:26 125/75 08/13/20 19:23 97.8 F 95 18 117/71 Pulse Ox 08/14/20 15:00 08/14/20 14:26 94 L 08/14/20 08:00 97 08/14/20 06:25 92 L 08/13/20 23:26 08/13/20 19:23 98 Intake and Output 08/14/20 08/14/20 08/14/20 06:59 14:59 22:59 Intake Total 300 Balance 300 Intake: Oral 300 Other: Voiding Method Toilet # Voids 1 Weight 70.307 kg On physical examination, patient appears comfortable in no apparent distress. HEAD: Normocephalic, atraumatic. EYES: No scleral icterus. No conjunctival injection. MOUTH: No lesions, tongue midline. NECK: Trachea midline, no gross abnormalities. CHEST: Decreased air entry in all lung rizo. HEART: Regular rate and rhythm. ABDOMEN: Soft, nontender to palpation. Bowel sounds are positive. No organomegaly. No guarding or rigidity. EXTREMITIES: No pedal edema. SKIN: No rashes, no jaundice. NEUROLOGIC: Alert and oriented x3. No focal deficits. Results CBC & Chem 7: 08/14/20 08:13 08/14/20 08:18 Labs: Abnormal Lab Results - Last 24 Hours (Table) 1208/13/20 08/14/20 Range/Units 20:08 20:08 01:19 WBC 11.0 H (3.8-10.6) k/uL Neutrophils # 10.0 H (1.3-7.7) k/uL Lymphocytes # 0.5 L (1.0-4.8) k/uL Sodium 133 L (137-145) mmol/L Potassium (3.5-5.1) mmol/L Glucose 101 H (74-99) mg/dL Total Bilirubin 2.3 H (0.2-1.3) mg/dL Delta Bilirubin (0.0-0.2) mg/dL AST 93 H (14-36) U/L ALT 47 H (4-34) U/L Alkaline Phosphatase 135 H (38-126) U/L Albumin (3.5-5.0) g/dL Lipase <10 L (23-300) U/L TSH 43.200 H (0.465-4.680) mIU/L Free T4 0.49 L (0.78-2.19) ng/dL Ur Specific [place] >1.050 H (1.001-1.035) Urine Protein Trace H (Negative) Urine Ketones 1+ H (Negative) Urine Nitrite Positive H (Negative) Amorphous Sediment Rare H (None) /hpf Urine Bacteria Rare H (None) /hpf Urine Mucus Rare H (None) /hpf 08/14/20 08/14/20 Range/Units 08:13 08:18 WBC (3.8-10.6) k/uL Neutrophils # (1.3-7.7) k/uL Lymphocytes # 0.6 L (1.0-4.8) k/uL Sodium 134 L (137-145) mmol/L Potassium 3.2 L (3.5-5.1) mmol/L Glucose (74-99) mg/dL Total Bilirubin 1.9 H (0.2-1.3) mg/dL Delta Bilirubin 1.1 H (0.0-0.2) mg/dL AST 109 H (14-36) U/L ALT 67 H (4-34) U/L Alkaline Phosphatase 175 H (38-126) U/L Albumin 3.3 L (3.5-5.0) g/dL Lipase (23-300) U/L TSH (0.465-4.680) mIU/L Free T4 (0.78-2.19) ng/dL Ur Specific [place] (1.001-1.035) Urine Protein (Negative) Urine Ketones (Negative) Urine Nitrite (Negative) Amorphous Sediment (None) /hpf Urine Bacteria (None) /hpf Urine Mucus (None) /hpf CT scan - abdomen: report reviewed (Computed tomography scan of the abdomen with findings of colitis of the descending colon and sigmoid.) Assessment and Plan (1) Diarrhea Narrative/Plan: 84-year-old female who presented to the hospital due to diarrhea. 2 weeks of loose frequent bowel movements, however patient reports symptoms are improved over the past 3-4 days. She has been using an antidiarrheal. Testing for Clostridium difficile was negative. Computed tomography scan showed colitis of the descending and sigmoid colon. She reports that her last colonoscopy was 1 year ago. No signs or symptoms of GI bleeding. He is tolerating a diet. Suspicion is for likely infectious colitis, differential also includes ischemic or inflammatory process. Current Visit: Yes Status: Acute Code(s): R19.7 - DIARRHEA, UNSPECIFIED SNOMED Code(s): 74481907 (2) Colitis Current Visit: Yes Status: Acute Code(s): K52.9 - NONINFECTIVE GASTROENTERITIS AND COLITIS, UNSPECIFIED SNOMED Code(s): 91627978 Plan: Supportive care Okay for low fiber low lactose diet Continue antidiarrheal with Imodium or Lomotil as needed for diarrhea Would recommend a short course of antibiotic therapy with Flagyl and Keflex initiated No plans for endoscopy at this time If symptoms persist patient can follow up and can consider repeat colonoscopy in 4-6 weeks after resolution of her suspected infectious colitis Okay for discharge when otherwise medically stable and she is currently reporting symptoms are improved Thanks for allowing us to participate in the care of the patient
--- NOTE | 2020-08-15 21:12 | P.DS ---
Providers Date of admission: 08/13/20 21:36 Expected date of discharge: 08/15/20 Attending physician: Refugio Jonas Consults: 08/13/20 21:37 Consult Physician Urgent Consulting Provider: Elliot Younger Reason/Comments: acute diarrhea, acute colitis Do you want consulting provider notified?: Yes Primary care physician: [facility] Course: Chief Complaint: Diarrhea History of presenting complaint: This is a 84-year-old patient. Who lives by herself. Does use a walker to get about. For about 2 weeks she's been having one or 2 bowel movements a day. She describes as explosive loose. No blood. No abdominal pain. No nausea vomiting. Able to eat okay. No fever no chills. She was here in the ER about 5 days ago. Managed conservatively. Family thinks not been eating. Patient tells me she is hungry. She is a long-standing smoker. No abdominal bloating. No history of travel Admitted with a diagnoses of mild colitis. Computed tomography scan showed the same. Started on Flagyl. Also had a UTI. Added Keflex. Metamucil was added. Patient is able to take her own decisions able to [place] carryout a fair conv ersation. Seen by community mental health social worker. GI. Today-patient doing really well. No further diarrhea. Starting a diet. Very keen to go home. Discussed with the patient. Nurse to talk to the daughter. Blood pressure medications were adjusted. Ultrasound of the gallbladder showed gallstones. RODOLFO inhibitor dramatic. Patient has newly diagnosis of hypothyroid. All Round Butcher: Dr. Chang from GI Physical examination: VITAL SIGNS: 97.4, 74, 18, 152/91, 91% room air GENERAL: BMI 25.8,. Comfortable EYES: Pupils equal. Conjunctiva normal. HEENT: External appearance of nose and ears normal, oral cavity grossly normal. NECK: JVD not raised; masses not palpable. HEART: First and second heart sounds are normal; no edema. LUNGS: Respiratory rate normal; decreased breath sounds. ABDOMEN: Soft, nontender, liver spleen not palpable, no masses palpable. PSYCH: Alert and oriented x3; mood and affect normal MUSCULAR skeletal: Evidence of OA. INVESTIGATIONS, reviewed in the clinical context: White count 8.2 hemoglobin 14 creatinine 0.6 White count 11 hemoglobin 13.9 potassium 3.7 creatinine 0.64 bilirubin 2.3 AST 93 ALT 47 TSH 43.2. T4 0.49 Computed tomography scan of the abdomen-that is indistinctness to the descending colon and proximal sigmoid with 80 medicine reticulation throughout the mesocolon Abdominal ultrasound-gallstones. No evidence of acute cholecystitis Assessment: -Patient been having about one or 2 loose bowel movements for last about 2 weeks. No blood. No abdominal pain. No vomiting. Appetite appears to be fair. Computed tomography scan is showing some evidence of mild colitis. There is no fever no chills. -COPD in a current smoker -Chronic nicotine dependence patient cigarette smoker -Primary osteoarthritis -Chronic gait dysfunction uses a walker -Mildly elevated LFTs and bilirubin -Hypothyroid. Patient does be she has a new prescription from a family doctor that has not been picked up from the pharmacy -Gallstones. Asymptomatic Disposition: Home Patient Condition at Discharge: Stable Plan - Discharge Summary Discharge Rx Participant: No New Discharge Prescriptions: New metroNIDAZOLE [Flagyl] 500 mg PO TID #21 tab Nicotine 21Mg/24Hr Patch [Habitrol] 1 patch TRANSDERM DAILY #14 patch Loperamide [Imodium] 2 mg PO QID PRN #30 cap PRN Reason: Diarrhea Cephalexin [Keflex] 250 mg PO TID #6 cap Psyllium Husk 100% [Metamucil Packet] 6 gm PO BID #60 packet Levothyroxine Sodium [Synthroid] 75 mcg PO DAILY@0630 #30 tab Lisinopril-Hctz 20-12.5 mg [Zestoretic 20-12.5] 1 tab PO BID #60 tab Continue Clopidogrel [Plavix] 75 mg PO DAILY Budesonide/Formoterol Fumarate [Symbicort 160-4.5 Mcg Inhaler] 2 puff INHALATION BID Diclofenac Sodium [Voltaren Arthritis Pain 1% Gel] 1 applic TOPICAL DAILY Changed Naproxen Sodium [Aleve] 220 mg PO BID #0 Discontinued Atenolol [Tenormin] 100 mg PO DAILY Discharge Medication List Budesonide/Formoterol Fumarate [Symbicort 160-4.5 Mcg Inhaler] 2 puff INHALATION BID 08/08/20 [History] Clopidogrel [Plavix] 75 mg PO DAILY 08/08/20 [History] Diclofenac Sodium [Voltaren Arthritis Pain 1% Gel] 1 applic TOPICAL DAILY 08/08/20 [History] Cephalexin [Keflex] 250 mg PO TID #6 cap 08/15/20 [Rx] Levothyroxine Sodium [Synthroid] 75 mcg PO DAILY@0630 #30 tab 08/15/20 [Rx] Lisinopril-Hctz 20-12.5 mg [Zestoretic 20-12.5] 1 tab PO BID #60 tab 08/15/20 [Rx] Loperamide [Imodium] 2 mg PO QID PRN #30 cap 08/15/20 [Rx] Naproxen Sodium [Aleve] 220 mg PO BID #0 08/15/20 [Rx] Nicotine 21Mg/24Hr Patch [Habitrol] 1 patch TRANSDERM DAILY #14 patch 08/15/20 [Rx] Psyllium Husk 100% [Metamucil Packet] 6 gm PO BID #60 packet 08/15/20 [Rx] metroNIDAZOLE [Flagyl] 500 mg PO TID #21 tab 08/15/20 [Rx] Follow up Appointment(s)/Referral(s): Calin Lyle DO [Primary Care Provider] - 1-2 days Patient Instructions/Handouts: Acute Diarrhea (GEN) Discharge Disposition: HOME SELF-CARE
== END 2020-08-15 14:37 | disposition home or self-care (01) ==
LOC: EC 19:19 → 1SOBS 21:36
PROVIDERS: ADMIT Hospitalist; ATTEND Hospitalist
DX: K52.9 Noninfective gastroenteritis and colitis, unspecified (principal); R11.2 Nausea with vomiting, unspecified; J44.9 Chronic obstructive pulmonary disease, unspecified; F17.210 Nicotine dependence, cigarettes, uncomplicated; N39.0 Urinary tract infection, site not specified; K80.20 Calculus of gallbladder without cholecystitis without obstruction; I10 Essential (primary) hypertension; M19.91 Primary osteoarthritis, unspecified site; E03.9 Hypothyroidism, unspecified; R26.9 Unspecified abnormalities of gait and mobility; R79.89 Other specified abnormal findings of blood chemistry; Z79.51 Long term (current) use of inhaled steroids; Z79.02 Long term (current) use of antithrombotics/antiplatelets; Z79.1 Long term (current) use of non-steroidal anti-inflammatories (NSAID); Z79.899 Other long term (current) drug therapy
CPT/HCPCS: 96361 ×3; 96372; 96365; 96375; 99285; 36415; 94640; 84439; 80053; 80048; 80076; 80074; 84443; 83605; 83690; 85025 ×2; 81001; 76705; 74177; G0378 ×3; S4990 ×3; J1650; J0696; Q9967

== ENCOUNTER → 2020-11-09 | Outpatient (CLI) | payer MEDICARE ==
--- NOTE | 2020-11-09 16:54 | US ---
EXAMINATION TYPE: US venous doppler duplex LE DATE OF EXAM: 11/09/2020 1:57 PM COMPARISON: US 2018 CLINICAL HISTORY: 85-year-old female R60.0 Localized edema. Bilateral leg edema, patient on blood thi nners SIDE PERFORMED: Bilateral TECHNIQUE: The lower extremity deep venous system is examined utilizing real time linear array sonog natasha with graded compression, doppler sonography and color-flow sonography. FINDINGS: VESSELS IMAGED: Common Femoral Vein Deep Femoral Vein Greater Saphenous Vein * Femoral Vein Popliteal Vein Small Saphenous Vein * Proximal Calf Veins (* superficial vessels) Right Leg: Appears negative for DVT Left Leg: Appears negative for DVT IMPRESSION: No evidence for DVT within the bilateral lower extremities imaged from the groin to the upper calves.
--- NOTE | 2020-11-11 09:42 | P.ARTDOP ---
Arterial Doppler LOWER EXTREMITY ARTERIAL DOPPLER: DATE OF SERVICE: 11/09/2020 Reason for study: Bilateral leg swelling. Doppler waveforms: Multiphasic bilaterally to the ankle and foot level. Digital waveforms are very blunted on the right.. Pulse volume recording: []. Pressure gradients: Only at the foot level on the right. Ankle-brachial indices: 0.95 on the right and greater than 1 on the left. Toe brachial indices: 0.34 on the right, 0.68 on the left Impression: Study is normal proximally. Decreased toe pressure and waveform on the right highly suspicious for vasospastic phenomenon. Distal disease less likely. Clinical correlation recommended..
== END | disposition home or self-care (01) ==
LOC: RADUSWWP 13:24
PROVIDERS: ATTEND Family Medicine
DX: I73.89 Other specified peripheral vascular diseases (principal); R60.0 Localized edema
CPT/HCPCS: 93922; 93970

== ENCOUNTER → 2020-12-29 | Outpatient (CLI) | payer MEDICARE ==
--- NOTE | 2020-12-30 08:37 | MM ---
Reason for exam: screening (asymptomatic). Last mammogram was performed 2 years and 2 months ago. History: Patient is postmenopausal. Physical Findings: A clinical breast exam by your physician is recommended on an annual basis and results should be correlated with mammographic findings. MG 3D Screening Mammo W/Cad Bilateral CC and MLO view(s) were taken. Prior study comparison: November 06, 2018, bilateral MG 3d screening mammo w/cad. March 27, 2014, bilateral MG diagnostic mammo w CAD DELANO. The breast tissue is heterogeneously dense. This may lower the sensitivity of mammography. Stable benign calcifications. There is no discrete abnormality. No significant changes when compared with prior studies. ASSESSMENT: Benign, BI-RAD 2 RECOMMENDATION: Routine screening mammogram of both breasts in 1 year.
== END | disposition home or self-care (01) ==
LOC: RADMAMWWP 13:35
PROVIDERS: ATTEND Family Medicine
DX: Z12.31 Encounter for screening mammogram for malignant neoplasm of breast (principal); Z78.0 Asymptomatic menopausal state
CPT/HCPCS: 77063; 77067

== ENCOUNTER 2021-03-18 13:43 | Inpatient (IN) | payer MEDICARE ==
[2021-03-18] MEDS ORDERED: methylPREDNISolone SOD SUCCI 125 MG/2 ML VIAL IV STA (13:46)
--- NOTE | 2021-03-18 14:38 | ED ---
General Adult HPI - General Chief complaint: Shortness of Breath Stated complaint: YARA Time Seen by Provider: 03/18/21 13:55 Source: EMS, RN notes reviewed, old records reviewed Mode of arrival: EMS Limitations: no limitations - History of Present Illness Initial comments: This is an 85-year-old female presents emergency Department with difficulty breathing. Patient has a history of COPD per patient stated she was at the [facility] and smoked a cigarette when it happened she couldn't breathe. When EMS arrived they stated that her pulse ox was in the 60s however she was cold and she has quite a bit of nail kosovan on. Patient was given [address] in and she was feeling better when she arrived. Patient denies any fever chills or cough. Patient denies any chest pain or palpitations. Patient denies any abdominal pain patient denies nausea vomiting diarrhea. - Related Data Home Medications Medication Instructions Recorded Confirmed Budesonide/Formoterol Fumarate 2 puff INHALATION BID 08/08/20 08/13/20 [Symbicort 160-4.5 Mcg Inhaler] Clopidogrel [Plavix] 75 mg PO DAILY 08/08/20 08/13/20 Diclofenac Sodium [Voltaren 1 applic TOPICAL DAILY 08/08/20 08/13/20 Arthritis Pain 1% Gel] Previous Rx's Medication Instructions Recorded Cephalexin [Keflex] 250 mg PO TID #6 cap 08/15/20 Levothyroxine Sodium [Synthroid] 75 mcg PO DAILY@0630 #30 tab 08/15/20 Lisinopril-Hctz 20-12.5 mg 1 tab PO BID #60 tab 08/15/20 [Zestoretic 20-12.5] Loperamide [Imodium] 2 mg PO QID PRN #30 cap 08/15/20 Naproxen Sodium [Aleve] 220 mg PO BID #0 08/15/20 Nicotine 21Mg/24Hr Patch [Habitrol] 1 patch TRANSDERM DAILY #14 patch 08/15/20 Psyllium Husk 100% [Metamucil 6 gm PO BID #60 packet 08/15/20 Packet] metroNIDAZOLE [Flagyl] 500 mg PO TID #21 tab 08/15/20 Allergies Allergy/AdvReac Type Severity Reaction Status Date / Time No Known Allergies Allergy Verified 08/13/20 22:29 Review of Systems ROS Statement: Those systems with pertinent positive or pertinent negative responses have been documented in the HPI. ROS Other: All systems not noted in ROS Statement are negative. Past Medical History Past Medical History: COPD History of Any Multi-Drug Resistant Organisms: None Reported Past Surgical History: Orthopedic Surgery Additional Past Surgical History / Comment(s): lt ankle Past Anesthesia/Blood Transfusion Reactions: No Reported Reaction Additional Past Anesthesia/Blood Transfusion Reaction / Comment(s): no blood transfusions Past Psychological History: No Psychological Hx Reported Smoking Status: Former smoker Past Alcohol Use History: Rare Past Drug Use History: None Reported General Exam - General Exam Comments Initial Comments: GENERAL: Patient is well-developed and well-nourished. Patient is nontoxic and well- hydrated and is in mild distress. ENT: Neck is soft and supple. No significant lymphadenopathy is noted. Oropharynx is clear. Moist mucous membranes. Neck has full range of motion without eliciting any pain. EYES: The sclera were anicteric and conjunctiva were pink and moist. Extraocular movements were intact and pupils were equal round and reactive to light. Eyelids were unremarkable. PULMONARY: Unlabored respirations. Good breath sounds bilaterally. At this time there is no wheezing. CARDIOVASCULAR: There is a regular rate and rhythm without any murmurs gallops or rubs. ABDOMEN: Soft and nontender with normal bowel sounds. SKIN: Skin is clear with no lesions or rashes and otherwise unremarkable. NEUROLOGIC: Patient is alert and oriented x3. Cranial nerves II through XII are grossly intact. Motor and sensory are also intact. Normal speech, volume and content. Symmetrical smile. MUSCULOSKELETAL: Normal extremities with adequate strength and full range of motion. No lower extremity swelling or edema. No calf tenderness. LYMPHATICS: No significant lymphadenopathy is noted PSYCHIATRIC: Normal psychiatric evaluation. Limitations: no limitations Course Vital Signs 03/18/21 03/18/21 03/18/21 13:53 15:00 16:19 Temperature 97.0 F L Pulse Rate 93 68 66 Respiratory 20 18 18 Rate Blood Pressure 116/72 125/81 129/99 O2 Sat by Pulse 98 96 95 Oximetry Medical Decision Making - Medical Decision Making EKG shows sinus rhythm at 67 bpm CA interval is 150 QRS is 178 QT interval is 506 QTC is 534. Patient's left bundle branch block. Patient's chest x-ray shows bilateral pleural effusions enlarged heart and pulmonary edema. Patient has received 40 of Lasix in the emergency department. I spoke with Dr. Jonas agreed to admit the patient admitted the patient wrote admitting orders and I continued Lasix on the floor as well as Nitropaste. I consult cardiology. - Lab Data Result diagrams: 03/18/21 14:43 03/18/21 14:43 Lab Results 03/18/21 03/18/21 03/18/21 Range/Units 14:43 14:43 14:43 WBC 6.2 (3.8-10.6) k/uL RBC 4.84 (3.80-5.40) m/uL Hgb 15.0 (11.4-16.0) gm/dL Hct 45.0 (34.0-46.0) % MCV 93.1 (80.0-100.0) fL MCH 31.0 (25.0-35.0) pg MCHC 33.3 (31.0-37.0) g/dL RDW 15.7 H (11.5-15.5) % Plt Count 259 (150-450) k/uL MPV 7.1 Neutrophils % 68 % Lymphocytes % 19 % Monocytes % 7 % Eosinophils % 3 % Basophils % 1 % Neutrophils # 4.3 (1.3-7.7) k/uL Lymphocytes # 1.2 (1.0-4.8) k/uL Monocytes # 0.5 (0-1.0) k/uL Eosinophils # 0.2 (0-0.7) k/uL Basophils # 0.0 (0-0.2) k/uL PT 11.0 (9.0-12.0) sec INR 1.0 (<1.2) APTT 22.8 (22.0-30.0) sec Sodium 134 L (137-145) mmol/L Potassium 4.4 (3.5-5.1) mmol/L Chloride 101 (98-107) mmol/L Carbon Dioxide 27 (22-30) mmol/L Anion Gap 6 mmol/L BUN 18 H (7-17) mg/dL Creatinine 0.62 (0.52-1.04) mg/dL Est GFR (CKD-EPI)AfAm >90 (>60 ml/min/1.73 sqM) Est GFR (CKD-EPI)NonAf 84 (>60 ml/min/1.73 sqM) Glucose 104 H (74-99) mg/dL Plasma Lactic Acid Ryan (0.7-2.0) mmol/L Calcium 9.0 (8.4-10.2) mg/dL Magnesium 2.3 (1.6-2.3) mg/dL Total Bilirubin 1.7 H (0.2-1.3) mg/dL AST 40 H (14-36) U/L ALT 50 H (4-34) U/L Alkaline Phosphatase 309 H (38-126) U/L Troponin I (0.000-0.034) ng/mL Total Protein 6.9 (6.3-8.2) g/dL Albumin 3.8 (3.5-5.0) g/dL 03/18/21 03/18/21 Range/Units 14:43 14:43 WBC (3.8-10.6) k/uL RBC (3.80-5.40) m/uL Hgb (11.4-16.0) gm/dL Hct (34.0-46.0) % MCV (80.0-100.0) fL MCH (25.0-35.0) pg MCHC (31.0-37.0) g/dL RDW (11.5-15.5) % Plt Count (150-450) k/uL MPV Neutrophils % % Lymphocytes % % Monocytes % % Eosinophils % % Basophils % % Neutrophils # (1.3-7.7) k/uL Lymphocytes # (1.0-4.8) k/uL Monocytes # (0-1.0) k/uL Eosinophils # (0-0.7) k/uL Basophils # (0-0.2) k/uL PT (9.0-12.0) sec INR (<1.2) APTT (22.0-30.0) sec Sodium (137-145) mmol/L Potassium (3.5-5.1) mmol/L Chloride (98-107) mmol/L Carbon Dioxide (22-30) mmol/L Anion Gap mmol/L BUN (7-17) mg/dL Creatinine (0.52-1.04) mg/dL Est GFR (CKD-EPI)AfAm (>60 ml/min/1.73 sqM) Est GFR (CKD-EPI)NonAf (>60 ml/min/1.73 sqM) Glucose (74-99) mg/dL Plasma Lactic Acid Ryan 1.5 (0.7-2.0) mmol/L Calcium (8.4-10.2) mg/dL Magnesium (1.6-2.3) mg/dL Total Bilirubin (0.2-1.3) mg/dL AST (14-36) U/L ALT (4-34) U/L Alkaline Phosphatase (38-126) U/L Troponin I 0.013 (0.000-0.034) ng/mL Total Protein (6.3-8.2) g/dL Albumin (3.5-5.0) g/dL Disposition Clinical Impression: Acute pulmonary edema Disposition: ADMITTED IP TO THIS HOSP Referrals: Calin Lyle DO [Primary Care Provider] - 1-2 days Time of Disposition: 17:02
[2021-03-18 15:01] LABS: Basophils % (A) 1 %; Eosinophils # (A) 0.2 k/uL (0-0.7); Eosinophils % (A) 3 %; Lymphocytes # (A) 1.2 k/uL (1.0-4.8); Lymphocytes % (A) 19 %; MCHC 33.3 g/dL (31.0-37.0); MCV 93.1 fL (80.0-100.0); Mean Platelet Volume 7.1; Monocytes # (A) 0.5 k/uL (0-1.0); Monocytes % (A) 7 %; Neutrophils # (A) 4.3 k/uL (1.3-7.7); Neutrophils % (A) 68 %; Platelet Count 259 k/uL (150-450); RBC 4.84 m/uL (3.80-5.40); RDW 15.7 % (11.5-15.5); WBC 6.2 k/uL (3.8-10.6)
[2021-03-18 15:10] LABS: Partial Thromboplastin Time 22.8 sec (22.0-30.0)
[2021-03-18 15:13] LABS: ALT 50 U/L (4-34); AST 40 U/L (14-36); African American GFR (CKD) >90 (>60 ml/min/1.73 sqM); Albumin 3.8 g/dL (3.5-5.0); Alkaline Phosphatase 309 U/L (38-126); Anion Gap 6 mmol/L; Blood Urea Nitrogen 18 mg/dL (7-17); Carbon Dioxide 27 mmol/L (22-30); Chloride 101 mmol/L (98-107); Glucose 104 mg/dL (74-99); Magnesium 2.3 mg/dL (1.6-2.3); Non-African American GFR(CKD) 84 (>60 ml/min/1.73 sqM); Potassium 4.4 mmol/L (3.5-5.1); Sodium 134 mmol/L (137-145); Total Bilirubin 1.7 mg/dL (0.2-1.3); Total Protein 6.9 g/dL (6.3-8.2)
--- NOTE | 2021-03-18 16:40 | XR ---
EXAMINATION TYPE: XR chest 2V DATE OF EXAM: 03/18/2021 CLINICAL HISTORY: difficulty breathing. TECHNIQUE: Frontal and lateral view of the chest. COMPARISON: 01/26/2012 FINDINGS: Cardiomegaly. Diffuse increased central lung markings. Small bilateral pleural effusions. B ibasilar airspace opacities. No pneumothorax. Old left fracture deformity of the left humerus. Decrea sed osseous mineralization. IMPRESSION: Cardiomegaly, interstitial edema, and small bilateral pleural effusions. Findings may represent CHF.
[2021-03-18] MEDS ORDERED: FUROSEMIDE 10 MG/ML 4 ML VIAL IV STA (17:01)
[2021-03-18] MEDS: FUROSEMIDE 10 MG/ML 4 ML VIAL IV SCH (17:44)
[2021-03-18] MEDS: NITROGLYCERIN OINT 1 INCH/GM PACKET TOPICAL SCH ×2 (17:46→22:16)
[2021-03-18] MEDS ORDERED: SYMBICORT 160-4.5 MCG INHALER INHALATION SCH (20:00)
[2021-03-18] MEDS ORDERED: NALOXONE 0.4 MG/ML 1 ML VIAL IV PRN (20:43)
[2021-03-18] MEDS ORDERED: MAGNESIUM HYDROXIDE 2,400 MG/10 ML CUP PO PRN (20:43)
[2021-03-18] MEDS ORDERED: ACETAMINOPHEN TAB 325 MG TAB PO PRN (20:43)
[2021-03-18] MEDS ORDERED: LACTULOSE 20 GM/30 ML CUP PO PRN (20:43)
[2021-03-18] MEDS ORDERED: MELATONIN 3 MG TABLET PO PRN (20:43)
[2021-03-18] MEDS ORDERED: ONDANSETRON 4 MG/2 ML VIAL IVP PRN (20:43)
[2021-03-18] MEDS ORDERED: CALCIUM CARBONATE 500 MG CHEWABLE PO PRN (20:43)
[2021-03-18] MEDS ORDERED: ALPRAZolam 0.25 MG TAB PO PRN (20:43)
[2021-03-18] MEDS ORDERED: MAG HYDROX/AL HYDROX/SIMETH 30 ML CUP PO PRN (20:43)
[2021-03-18] MEDS ORDERED: ENOXAPARIN 40 MG/0.4 ML SYRINGE SQ SCH (20:45)
--- NOTE | 2021-03-18 20:48 | P.HPIM ---
History of Present Illness H&P Date: 03/18/21 Chief Complaint: Shortness of breath History of presenting complaint: This is a pleasant 85-year-old patient, follows with Dr. Lyle.. Lives at [facility] Does use a walker to get about. Chronic stable medical conditions include osteoarthritis, gait dysfunction, hypothyroid. Patient presents with progressive increase in shortness of breath. Significant wheezing. The cough. No sputum production. No fever no chills. Appetite is okay. Patient has continued to smoke. Tired. No chest pain. Review of systems: GEN.: Tired EYES: None HEENT: None NECK: None RESPIRATORY: As above CARDIOVASCULAR: None GASTROINTESTINAL: As above GENITOURINARY: None MUSCULOSKELETAL: Joint pains LYMPHATICS: None HEMATOLOGICAL: None PSYCHIATRY: None NEUROLOGICAL: Uses a walker Past medical history to include: COPD, hypertension, osteoarthritis, hypothyroid, gait dysfunction Family history: Reviewed, noncontributory to presentation Physical examination: VITAL SIGNS: 97, 93, 20, 116/72, 98% on 4 L GENERAL: BMI 25, laying in bed, tired, short of breath EYES: Pupils equal. Conjunctiva normal. HEENT: External appearance of nose and ears normal, oral cavity grossly normal. NECK: JVD not raised; masses not palpable. HEART: First and second heart sounds are normal; no edema. LUNGS: Respiratory rate increased; accessory muscles of working, not able to speak in full sentences. Diminished breath sounds prolonged expiration and wheezing ABDOMEN: Soft, nontender, liver spleen not palpable, no masses palpable. PSYCH: Alert and oriented x3; mood and affect slightly anxious MUSCULAR skeletal: Evidence of OA. NEUROLOGICAL: Cranial nerves grossly intact; no facial asymmetry, power and sensation grossly intact. LYMPHATICS: No lymph nodes palpable in the axilla and neck, INVESTIGATIONS, reviewed in the clinical context: WBC 6.2 hemoglobin 15 platelets 259 potassium, creatinine 0.62 AST 40 ALT 50 EKG tracing personally reviewed by me-sinus rhythm, left bundle-branch block, rate 67 Chest x-ray film personally reviewed by me-cardiomegaly, prominent interstitium possibly chronic Assessment and plan: -Acute severe COPD exacerbation in a current smoker DuoNeb every 4, inhaled and IV steroids, long-acting beta agonist nebulizer -Possible acute tracheobronchitis Doxycycline -Chronic nicotine dependence patient cigarette smoker Nicotine patch -Primary osteoarthritis, multiple joints bilateral Pain medications as needed -Chronic gait dysfunction uses a walker Fall precautions -Hypothyroid. Synthroid. Check LFTs -Gallstones. Asymptomatic Care was discussed with the patient. Questions answered. Bronchodilators, steroids. Nicotine patch. Check pro-calcitonin and BNP. 2-D echocardiogram. Follow labs. Given the complexity and severity of patient's condition expect the patient to be in the hospital at least for 2 overnights Smoke cessation counseling: This was done with the patient. Nicotine patch is being given. More than 3 minutes was spent for this Past Medical History Past Medical History: COPD History of Any Multi-Drug Resistant Organisms: None Reported Past Surgical History: Orthopedic Surgery Additional Past Surgical History / Comment(s): lt ankle Past Anesthesia/Blood Transfusion Reactions: No Reported Reaction Additional Past Anesthesia/Blood Transfusion Reaction / Comment(s): no blood transfusions Past Psychological History: No Psychological Hx Reported Smoking Status: Former smoker Past Alcohol Use History: Rare Past Drug Use History: None Reported Medications and Allergies Home Medications Medication Instructions Recorded Confirmed Type Budesonide/Formoterol Fumarate 2 puff INHALATION RT-BID@08,199908/08/20 03/18/21 History [Symbicort 160-4.5 Mcg Inhaler] Clopidogrel [Plavix] 75 mg PO DAILY@1700 08/08/20 03/18/21 History Famotidine [Pepcid] 20 mg PO BID@08,199903/18/21 03/18/21 History Furosemide [Lasix] 20 mg PO Q48H 03/18/21 03/18/21 History Levothyroxine Sodium [Synthroid] 112 mcg PO DAILY@0600 03/18/21 03/18/21 History SILVER sulfADIAZINE Cream 1 applic TOPICAL DAILY@1000 03/18/21 03/18/21 History [Silvadene 1% Cream] Allergies Allergy/AdvReac Type Severity Reaction Status Date / Time No Known Allergies Allergy Verified 03/18/21 17:44 Physical Exam Vitals: Vital Signs Temp Pulse Resp BP Pulse Ox 03/18/21 18:50 69 18 115/96 95 03/18/21 16:19 66 18 129/99 95 03/18/21 15:00 68 18 125/81 96 03/18/21 13:53 97.0 F L 93 20 116/72 98 Intake and Output 03/18/21 03/18/21 03/18/21 06:59 14:59 22:59 Other: Weight 68.039 kg Results CBC & Chem 7: 03/18/21 14:43 03/18/21 14:43 Labs: Abnormal Lab Results - Last 24 Hours (Table) 03/18/21 03/18/21 Range/Units 14:43 14:43 RDW 15.7 H (11.5-15.5) % Sodium 134 L (137-145) mmol/L BUN 18 H (7-17) mg/dL Glucose 104 H (74-99) mg/dL Total Bilirubin 1.7 H (0.2-1.3) mg/dL AST 40 H (14-36) U/L ALT 50 H (4-34) U/L Alkaline Phosphatase 309 H (38-126) U/L
[2021-03-18] MEDS: DOXYCYCLINE 100 MG CAP PO SCH (21:23)
[2021-03-18] MEDS: IPRATROPIUM-ALBUTEROL 3 ML NEB INHALATION SCH (21:24)
[2021-03-18] MEDS: NICOTINE 21MG/24HR PATCH TRANSDERM SCH (22:16)
[2021-03-18] MEDS: methylPREDNISolone SOD SUCCI 40 MG/ML 1 ML VIAL IV SCH (22:16)
[2021-03-19] MEDS: IPRATROPIUM-ALBUTEROL 3 ML NEB INHALATION SCH ×6 (01:06→21:39)
[2021-03-19] MEDS: LEVOTHYROXINE 112 MCG TAB PO SCH (05:09)
[2021-03-19] MEDS: FUROSEMIDE 10 MG/ML 4 ML VIAL IV SCH ×2 (05:09→17:04)
[2021-03-19] MEDS: BUDESONIDE 1 MG/2 ML NEBU INHALATION SCH ×2 (08:45→21:39)
[2021-03-19] MEDS: FORMOTEROL FUMARATE 20 MCG/2 ML NEBU INHALATION SCH ×2 (08:45→21:39)
[2021-03-19] MEDS: methylPREDNISolone SOD SUCCI 40 MG/ML 1 ML VIAL IV SCH ×3 (09:14→23:38)
[2021-03-19] MEDS: FAMOTIDINE 20 MG TAB PO SCH ×2 (09:14→19:55)
[2021-03-19] MEDS: DOXYCYCLINE 100 MG CAP PO SCH ×2 (09:14→19:55)
[2021-03-19] MEDS: METOPROLOL SUCCINATE (ER) 25 MG TAB.ER.24H PO SCH (09:14)
[2021-03-19] MEDS: CLOPIDOGREL 75 MG TAB PO SCH (09:14)
[2021-03-19] MEDS: NICOTINE 21MG/24HR PATCH TRANSDERM SCH (09:15)
[2021-03-19 09:30] LABS: African American GFR (CKD) >90 (>60 ml/min/1.73 sqM); Anion Gap 11 mmol/L; Blood Urea Nitrogen 19 mg/dL (7-17); Calcium 8.9 mg/dL (8.4-10.2); Carbon Dioxide 21 mmol/L (22-30); Chloride 102 mmol/L (98-107); Glucose 137 mg/dL (74-99); Non-African American GFR(CKD) 88 (>60 ml/min/1.73 sqM); Potassium 4.4 mmol/L (3.5-5.1); Sodium 134 mmol/L (137-145)
[2021-03-19] MEDS ORDERED: HEPARIN SODIUM 1,000 UN/ML (10ML VL) IV ONE (10:26)
[2021-03-19] MEDS ORDERED: HEPARIN SODIUM 1,000 UN/ML (10ML VL) IV PRN (10:26)
[2021-03-19 10:40] LABS: Basophils % (A) 0 %; Eosinophils % (A) 0 %; HCT 41.9 % (34.0-46.0); HGB 14.2 gm/dL (11.4-16.0); Lymphocytes # (A) 0.8 k/uL (1.0-4.8); Lymphocytes % (A) 14 %; MCH 31.6 pg (25.0-35.0); MCHC 33.9 g/dL (31.0-37.0); MCV 93.3 fL (80.0-100.0); Monocytes # (A) 0.4 k/uL (0-1.0); Monocytes % (A) 6 %; Neutrophils # (A) 4.5 k/uL (1.3-7.7); Neutrophils % (A) 80 %; Platelet Count 208 k/uL (150-450); RBC 4.49 m/uL (3.80-5.40); RDW 15.6 % (11.5-15.5); WBC 5.7 k/uL (3.8-10.6)
[2021-03-19] MEDS: HEPARIN SOD,PORK IN 0.45% NACL 25,000 UNIT in 0.45% NACL 1 250ML.BAG IV SCH (10:49)
[2021-03-19 10:54] LABS: T4, Free (Free Thyroxine) 1.61 ng/dL (0.78-2.19)
--- NOTE | 2021-03-19 10:57 | ECHOF ---
Referral Reason:Assess LV function MEASUREMENTS -------- HEIGHT: 165.1 cm WEIGHT: 62.6 kg BP: IVSd: 0.8 cm (0.6 - 1.1) LVIDd: 6.8 cm (3.9 - 5.3) LVPWd: 1.1 cm (0.6 - 1.1) EDV(Teich): 241 ml IVSs: 1.3 cm LVIDs: 6.2 cm LVPWs: 0.9 cm %IVS Thck: 54 % ESV(Teich): 191 ml EF(Teich): 21 % %FS: 10 % SV(Teich): 50 ml IVC: 23.63 mm LALs A4C: 5.5 cm LAAs A4C: 18.1 cm LAESV A-L A4C: 51 ml LAESV MOD A4C: 47 ml LALs A2C: 5.6 cm LAAs A2C: 21.0 cm LAESV A-L A2C: 67 ml LAESV MOD A2C: 64 ml LAESV(A-L): 59 ml LAESV Index (A-L): 34.85 ml/m Ao Diam: 3.6 cm (2.0 - 3.7) LA Diam: 2.8 cm (2.7 - 3.8) AV Cusp: 1.9 cm (1.5 - 2.6) EPSS: 3.8 cm MV E Brooks: 0.68 m/s MV DecT: 191 ms MV Dec Cabell: 3.6 m/s MV A Brooks: 0.47 m/s MV E/A Ratio: 1.43 MV PHT: 55 ms MR Vmax: 4.57 m/s MR maxP.52 mmHg AV Vmax: 0.85 m/s AV maxP.91 mmHg AR Vmax: 2.71 m/s AR maxP.34 mmHg AR PHT: 560 ms AR Dec Time: 1930 ms AR Dec Cabell: 1.4 m/s TR Vmax: 3.22 m/s TR maxP.36 mmHg RAP: 20.00 mmHg RVSP: 61.36 mmHg MV EF SLOPE: 137.92 mm/s (70 - 150) MV EXCURSION: 22.91 mm (> 18.000) FINDINGS -------- This was a technically good study. The left ventricle is severely dilated. Left ventricular wall thickness is normal. There is sever e global hypokinesis of LV . Overall left ventricular systolic function is severely impaired with, an EF < 20%. Increased LAP Grade 3 Diastolic Dysfunction. The right ventricle is normal in size. LA is moderately dilated 34-39 ml/m2 The right atrial size is normal. Aneurysmal Interatrial septum. Aortic valve is trileaflet and is mildly thickened. Trace amount of aortic regurgitation. The mitral valve is normal. The mitral valve leaflets are mildly thickened. Mild mitral annular c alcification present. Severe mitral regurgitation is present. The tricuspid valve appears structurally normal. Moderate tricuspid regurgitation present. There is moderate pulmonary hypertension. The right ventricular systolic pressure, as measured by Doppler , is 61.36mmHg. There is no pulmonic regurgitation present. The mass is located in the apical portion of the left ventricle. The aortic root size is normal. The inferior vena cava is dilated with no significant inspiratory collapse which is consistent estima cori right atrial pressure of >20 mmHg. There is a trivial pericardial effusion present. Moderate Pleural Effusion. CONCLUSIONS -------- 1. The left ventricle is severely dilated. 2. Left ventricular wall thickness is normal. 3. There is severe global hypokinesis of LV . 4. Overall left ventricular systolic function is severely impaired with, an EF < 20%. 5. Increased LAP Grade 3 Diastolic Dysfunction. 6. LA is moderately dilated 34-39 ml/m2 7. Aneurysmal Interatrial septum. 8. Aortic valve is trileaflet and is mildly thickened. 9. Trace amount of aortic regurgitation. 10. The mitral valve leaflets are mildly thickened. 11. Mild mitral annular calcification present. 12. Severe mitral regurgitation is present. 13. Moderate tricuspid regurgitation present. 14. There is moderate pulmonary hypertension. 15. The right ventricular systolic pressure, as measured by Doppler, is 61.36mmHg. 16. The mass is located in the apical portion of the left ventricle. 17. The inferior vena cava is dilated with no significant inspiratory collapse which is consistent es timated right atrial pressure of >20 mmHg. 18. There is a trivial pericardial effusion present. 19. Moderate Pleural Effusion. RN ENDOCRINOLOGY: Nicolle Paige RDCS
--- NOTE | 2021-03-19 12:14 | P.CRDCN ---
History of Present Illness History of present illness: HISTORY OF PRESENTING ILLNESS This is a pleasant 85-year-old female past medical history significant for COPD, hypertension, hypothyroidism, chronic nicotine dependence. 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 We have been asked to see in consultation for congestive heart failure. Patient states she was waiting for a ride yesterday doing errands, she states she was sitting outside smoking a cigarette. She states that all of a sudden she had acute onset shortness of breath, felt she could not breath. EMS was called and patient was brought to the emergency room. Patient was hypoxic in EMS, apparently SpO2 60s%. Patient was given 2 breathing treatments was feeling better when she arrived. She denies any history of heart disease, diabetes, coronary artery disease. She denies family history of heart disease. She is a current every day smoker, has been smoking 1ppd since she was 16. She has symptoms of orthopnea or PND. She has lower extremity edema but states this is chronic and not new for her. She states she does wear oxygen at home but does not know how much. She also endorses a 40 pound unintentional weight loss over the last year. She denies chest pain, palpitations, lightheadedness, dizziness, syncope, diaphoresis, nausea or abdominal pain. DIAGNOSTICS EKG reveals sinus rhythm with LBBB, left axis deviation, HR 67, prolonged QTc 534. No prior EKG to compare Telemetry tracings indicate patient in sinus mechanism LBBB, HR 55-70s Chest xray cardiomegaly, interstitial edema, bilateral pleural effusions Echocardiogram 03/19- revealed severe global hypokinesis, left systolic function is severely impaired with EF <20%, grade 3 diastolic dysfunction, severe mitral regurgitation, moderate tricuspid regurgitation, moderate pulmonary hypertension RVSP 61mmHg, Mass located in the apical portion of the LV. Moderate pleural effusion. Laboratory reviewed, WBC 5.7, hemoglobin 14.2, platelets 208, troponin negative 1, proBNP 37,200, sodium 134, potassium 4.4, BUN 19, serum creatinine 0.54 TSH low, Free T4 within normal limits. Current home cardiac medications include Lasix 20 mg every 48 hours, Plavix 75 mg daily REVIEW OF SYSTEMS At the time of my exam: CONSTITUTIONAL: Denies fever or chills. CARDIOVASCULAR: +shortness of breath, +orthopnea, +PND Denies chest pain or palpitations. RESPIRATORY: Denies cough. GASTROINTESTINAL: Denies abdominal pain, diarrhea, constipation, nausea or vomiting. MUSCULOSKELETAL: Denies myalgias. NEUROLOGIC: Denies numbness, tingling, headacbe or weakness. ENDOCRINE: Denies fatigue, weight change, polydipsia or polyurina. GENITOURINARY: Denies burning, hematuria or urgency with micturation. HEMATOLOGIC: Denies history of anemia or bleeding. PHYSICAL EXAMINATION Blood pressure 117/77 heart rate 69 afebrile and maintaining oxygen saturation 97% on 2 L nasal cannula. CONSTITUTIONAL: No apparent distress. HEENT: Head is normocephalic. Pupils are equal, round. Sclerae anicteric. Mucous membranes of the mouth are moist. + JVD. No carotid bruit. CHEST EXAMINATION: Lungs are diminished bilaterally, crackles in the bases. With expiratory wheezing. No chest wall tenderness is noted on palpation or with deep breathing. HEART EXAMINATION: Regular rate and rhythm. S1, S2 heard. Systolic ejection murmur at the apex ABDOMEN: Soft, nontender. Positive bowel sounds. EXTREMITIES: 2+ bilateral pitting edema, Redness bilaterally with open wounds weeping NEUROLOGIC EXAMINATION: Patient is awake, alert and oriented x3. ASSESSMENT Acute hypoxic respiratory failure most likely related to Acute systolic heart failure with reduced ejection fraction. Cardiomyopathy- EF <20% cannot identify if ischemic vs non-ischemic Left Ventricle Mass Severe mitral regurgitation Left bundle branch block - unclear of how long patient has had LBBB, no prior EKG to compare COPD exacerbation Chronic nicotine dependence History of hypertension History of hypothyroidism Elevated LFTs PLAN Continue IV Lasix 40mg BID Start metoprolol succinate 12.5mg daily, spironolactone 25mg daily, Lisinopril 2.5mg daily Start heparin drip due to LV mass seen on echocardiogram I/Os, daily weights Continue cardiac telemetry Lipid Panel Patient will most likely need cardiac catheterization to rule out ischemic cardiomyopathy. Will continue to monitor Further recommendations pending clinical course Nurse Practitioner note has been reviewed, I agree with a documented findings and plan of care. Patient was seen and examined. Past Medical History Past Medical History: COPD, Hypertension, Osteoarthritis (OA) History of Any Multi-Drug Resistant Organisms: None Reported Past Surgical History: Orthopedic Surgery Additional Past Surgical History / Comment(s): lt ankle Past Anesthesia/Blood Transfusion Reactions: No Reported Reaction Additional Past Anesthesia/Blood Transfusion Reaction / Comment(s): no blood transfusions Past Psychological History: No Psychological Hx Reported Smoking Status: Former smoker Past Alcohol Use History: Rare Past Drug Use History: None Reported Medications and Allergies Home Medications Medication Instructions Recorded Confirmed Type Budesonide/Formoterol Fumarate 2 puff INHALATION RT-BID@0800,199908/08/20 03/18/21 History [Symbicort 160-4.5 Mcg Inhaler] Clopidogrel [Plavix] 75 mg PO DAILY@1700 08/08/20 03/18/21 History Famotidine [Pepcid] 20 mg PO BID@08,199903/18/21 03/18/21 History Furosemide [Lasix] 20 mg PO Q48H 03/18/21 03/18/21 History Levothyroxine Sodium [Synthroid] 112 mcg PO DAILY@0600 03/18/21 03/18/21 History SILVER sulfADIAZINE Cream 1 applic TOPICAL DAILY@1000 03/18/21 03/18/21 History [Silvadene 1% Cream] Allergies Allergy/AdvReac Type Severity Reaction Status Date / Time No Known Allergies Allergy Verified 03/18/21 17:44 Physical Exam Vitals: Vital Signs Temp Pulse Pulse Resp BP BP Pulse Ox 03/19/21 03:40 72 03/19/21 03:32 68 03/19/21 03:24 98.6 F 69 16 117/77 97 03/19/21 02:00 67 22 03/19/21 00:00 98.2 F 67 22 116/68 96 03/18/21 22:11 98.2 F 67 22 116/68 96 03/18/21 21:30 80 03/18/21 21:24 80 03/18/21 21:05 67 18 118/76 95 03/18/21 18:50 69 18 115/96 95 03/18/21 16:19 66 18 129/99 95 03/18/21 15:00 68 18 125/81 96 03/18/21 13:53 97.0 F L 93 20 116/72 98 Intake and Output 03/18/21 03/19/21 03/19/21 22:59 06:59 14:59 Intake Total 240 Output Total 600 100 Balance -600 140 Intake: Oral 240 Output: Urine 600 100 Other: Voiding Method Toilet # Voids 2 Weight 68.039 kg 63 kg Results 03/19/21 08:52 03/19/21 08:52 Cardiac Enzymes 03/18/21 03/18/21 Range/Units 14:43 14:43 AST 40 H (14-36) U/L Troponin I 0.013 (0.000-0.034) ng/mL Coagulation 03/18/21 Range/Units 14:43 PT 11.0 (9.0-12.0) sec APTT 22.8 (22.0-30.0) sec CBC 03/18/21 Range/Units 14:43 WBC 6.2 (3.8-10.6) k/uL RBC 4.84 (3.80-5.40) m/uL Hgb 15.0 (11.4-16.0) gm/dL Hct 45.0 (34.0-46.0) % Plt Count 259 (150-450) k/uL Comprehensive Metabolic Panel 03/18/21 Range/Units 14:43 Sodium 134 L (137-145) mmol/L Potassium 4.4 (3.5-5.1) mmol/L Chloride 101 (98-107) mmol/L Carbon Dioxide 27 (22-30) mmol/L BUN 18 H (7-17) mg/dL Creatinine 0.62 (0.52-1.04) mg/dL Glucose 104 H (74-99) mg/dL Calcium 9.0 (8.4-10.2) mg/dL AST 40 H (14-36) U/L ALT 50 H (4-34) U/L Alkaline Phosphatase 309 H (38-126) U/L Total Protein 6.9 (6.3-8.2) g/dL Albumin 3.8 (3.5-5.0) g/dL Current Medications Generic Name Dose Route Start Last Admin Trade Name Freq PRN Reason Stop Dose Admin Acetaminophen 650 mg 03/18/21 20:43 03/18/21 21:22 Acetaminophen Tab 325 Mg Tab PO 650 mg Q6HR PRN Administration Mild Pain or Fever > 100.5 Al Hydroxide/Mg Hydroxide 15 ml 03/18/21 20:43 Mag Hydrox/Al Hydrox/Simeth 30 Ml Cup PO Q6HR PRN Indigestion Albuterol/Ipratropium 3 ml 03/18/21 20:38 03/19/21 03:31 Ipratropium-Albuterol 3 Ml Neb INHALATION 3 ml RT-Q4H [facility] Administration Alprazolam 0.25 mg 03/18/21 20:43 Alprazolam 0.25 Mg Tab PO Q6HR PRN Anxiety Budesonide 1 mg 03/19/21 08:00 Budesonide 1 Mg/2 Ml Nebu INHALATION RT-BID [facility] Calcium Carbonate/Glycine 1,000 mg 03/18/21 20:43 03/18/21 21:22 Calcium Carbonate 500 Mg Chewable PO 1,000 mg Q4HR PRN Administration Dyspepsia Clopidogrel Bisulfate 75 mg 03/19/21 09:00 Clopidogrel 75 Mg Tab PO DAILY [facility] Doxycycline Monohydrate 100 mg 03/18/21 21:00 03/18/21 21:23 Doxycycline 100 Mg Cap PO 100 mg BID [facility] Administration Enoxaparin Sodium 40 mg 03/18/21 20:45 03/18/21 21:21 Enoxaparin 40 Mg/0.4 Ml Syringe SQ 40 mg HS [facility] Administration Famotidine 20 mg 03/19/21 08:00 Famotidine 20 Mg Tab PO BID@0800,1999 [facility] Formoterol Fumarate 20 mcg 03/19/21 08:00 Formoterol Fumarate 20 Mcg/2 Ml Nebu INHALATION RT-BID [facility] Furosemide 40 mg 03/18/21 17:15 03/19/21 05:09 Furosemide 10 Mg/Ml 4 Ml Vial IV 40 mg Q12H [facility] Administration Lactulose 20 gm 03/18/21 20:43 Lactulose 20 Gm/30 Ml Cup PO DAILY PRN Constipation Levothyroxine Sodium 112 mcg 03/19/21 06:00 03/19/21 05:09 Levothyroxine 112 Mcg Tab PO 112 mcg DAILY@0600 [facility] Administration Magnesium Hydroxide 2,400 mg 03/18/21 20:43 Magnesium Hydroxide 2,400 Mg/10 Ml Cup PO DAILY PRN Constipation Melatonin 3 mg 03/18/21 20:43 03/18/21 21:22 Melatonin 3 Mg Tablet PO 3 mg HS PRN Administration Insomnia Methylprednisolone Sodium Succinate 40 mg 03/19/21 00:00 03/18/21 22:16 Methylprednisolone Sod Succi 40 Mg/Ml 1 Ml Vial IV 40 mg Q8HR [facility] Administration Naloxone HCl 0.2 mg 03/18/21 20:43 Naloxone 0.4 Mg/Ml 1 Ml Vial IV Q2M PRN Opioid Reversal Nicotine 1 patch 03/18/21 20:45 03/18/21 22:16 Nicotine 21mg/24hr Patch TRANSDERM 1 patch DAILY [facility] Administration Nitroglycerin 0.5 inch 03/18/21 18:00 03/18/21 22:16 Nitroglycerin Oint 1 Inch/Gm Packet TOPICAL 0.5 inch QID [facility] Administration Ondansetron HCl 4 mg 03/18/21 20:43 Ondansetron 4 Mg/2 Ml Vial IVP Q8HR PRN Nausea And Vomiting Silver Sulfadiazine 1 applic 03/19/21 10:00 Silver Sulfadiazine 1% Cream 25 Gm Tube TOPICAL DAILY@1000 [facility] Intake and Output 03/18/21 03/19/21 03/19/21 22:59 06:59 14:59 Intake Total 240 Output Total 600 100 Balance -600 140 Intake: Oral 240 Output: Urine 600 100 Other: Voiding Method Toilet # Voids 2 Weight 68.039 kg 63 kg 03/18/21 14:43 03/18/21 14:43
[2021-03-19 12:57] VITALS: BMI 23.3
--- NOTE | 2021-03-19 22:20 | P.PN ---
Progress Note - Text Progress Note Date: 03/19/21 Chief Complaint: Shortness of breath History of presenting complaint: This is a pleasant 85-year-old patient, follows with Dr. Lyle.. Lives at [facility] Does use a walker to get about. Chronic stable medical conditions include osteoarthritis, gait dysfunction, hypothyroid. Patient presents with progressive increase in shortness of breath. Significant wheezing. The cough. No sputum production. No fever no chills. Appetite is okay. Patient has continued to smoke. Tired. No chest pain. Admitted with severe COPD exacerbation, acute tracheal bronchitis. Started on nebulized bronchodilators, inhaled and IV steroids. March 19: Resting in bed. Slight improvement in wheezing and cough. Eating some. Review of systems: Was done for constitutional, cardiovascular, GI, pulmonary. relevant finding as above Active Medications Acetaminophen (Acetaminophen Tab 325 Mg Tab) 650 mg PO Q6HR PRN PRN Reason: Mild Pain or Fever > 100.5 Last Admin: 03/18/21 21:22 Dose: 650 mg Documented by: Al Hydroxide/Mg Hydroxide (Mag Hydrox/Al Hydrox/Simeth 30 Ml Cup) 15 ml PO Q6HR PRN PRN Reason: Indigestion Albuterol/Ipratropium (Ipratropium-Albuterol 3 Ml Neb) 3 ml INHALATION RT-Q4H [facility] Last Admin: 03/19/21 21:39 Dose: 3 ml Documented by: Alprazolam (Alprazolam 0.25 Mg Tab) 0.25 mg PO Q6HR PRN PRN Reason: Anxiety Budesonide (Budesonide 1 Mg/2 Ml Nebu) 1 mg INHALATION RT-BID [facility] Last Admin: 03/19/21 21:39 Dose: 1 mg Documented by: Calcium Carbonate/Glycine (Calcium Carbonate 500 Mg Chewable) 1,000 mg PO Q4HR PRN PRN Reason: Dyspepsia Last Admin: 03/18/21 21:22 Dose: 1,000 mg Documented by: Clopidogrel Bisulfate (Clopidogrel 75 Mg Tab) 75 mg PO DAILY [facility] Last Admin: 03/19/21 09:14 Dose: 75 mg Documented by: Doxycycline Monohydrate (Doxycycline 100 Mg Cap) 100 mg PO BID [facility] Last Admin: 03/19/21 19:55 Dose: 100 mg Documented by: Famotidine (Famotidine 20 Mg Tab) 20 mg PO BID@0800,2000 [facility] Last Admin: 03/19/21 19:55 Dose: 20 mg Documented by: Formoterol Fumarate (Formoterol Fumarate 20 Mcg/2 Ml Nebu) 20 mcg INHALATION RT-BID [facility] Last Admin: 03/19/21 21:39 Dose: 20 mcg Documented by: Furosemide (Furosemide 10 Mg/Ml 4 Ml Vial) 40 mg IV Q12H [facility] Last Admin: 03/19/21 17:04 Dose: 40 mg Documented by: Heparin Sodium (Porcine) (Heparin Sodium 1,000 Un/Ml (10ml Vl)) 0 unit IV PER PROTOCOL PRN; Protocol PRN Reason: Low PTT Heparin Sodium/Sodium Chloride (25,000 unit/ Sodium Chloride) 250 mls @ 11.34 mls/hr IV .Q22H3M [facility]; Protocol Last Titration: 03/19/21 19:04 Dose: 15 units/kg/hr, 9.45 mls/hr Documented by: Lactulose (Lactulose 20 Gm/30 Ml Cup) 20 gm PO DAILY PRN PRN Reason: Constipation Levothyroxine Sodium (Levothyroxine 112 Mcg Tab) 112 mcg PO DAILY@0600 [facility] Last Admin: 03/19/21 05:09 Dose: 112 mcg Documented by: Lisinopril (Lisinopril 2.5 Mg Tab) 2.5 mg PO DAILY [facility] Last Admin: 03/19/21 12:13 Dose: 2.5 mg Documented by: Magnesium Hydroxide (Magnesium Hydroxide 2,400 Mg/10 Ml Cup) 2,400 mg PO DAILY PRN PRN Reason: Constipation Melatonin (Melatonin 3 Mg Tablet) 3 mg PO HS PRN PRN Reason: Insomnia Last Admin: 03/18/21 21:22 Dose: 3 mg Documented by: Methylprednisolone Sodium Succinate (Methylprednisolone Sod Succi 40 Mg/Ml 1 Ml Vial) 40 mg IV Q8HR [facility] Last Admin: 03/19/21 17:03 Dose: 40 mg Documented by: Metoprolol Succinate (Metoprolol Succinate (Er) 25 Mg Tab.Er.24h) 12.5 mg PO DAILY [facility] Last Admin: 03/19/21 09:14 Dose: 12.5 mg Documented by: Naloxone HCl (Naloxone 0.4 Mg/Ml 1 Ml Vial) 0.2 mg IV Q2M PRN PRN Reason: Opioid Reversal Nicotine (Nicotine 21mg/24hr Patch) 1 patch TRANSDERM DAILY [facility] Last Admin: 03/19/21 09:15 Dose: 1 patch Documented by: Ondansetron HCl (Ondansetron 4 Mg/2 Ml Vial) 4 mg IVP Q8HR PRN PRN Reason: Nausea And Vomiting Silver Sulfadiazine (Silver Sulfadiazine 1% Cream 25 Gm Tube) 1 applic TOPICAL DAILY@1000 [facility] Last Admin: 03/19/21 09:15 Dose: 1 applic Documented by: Spironolactone (Spironolactone 25 Mg Tab) 25 mg PO DAILY [facility] Past medical history to include: COPD, hypertension, osteoarthritis, hypothyroid, gait dysfunction Family history: Reviewed, noncontributory to presentation Physical examination: VITAL SIGNS: 98.9, 65, 20, 93/53, 95% on 2 L GENERAL: Recommending bed,, short of breath EYES: Pupils equal. Conjunctiva normal. HEENT: External appearance of nose and ears normal, oral cavity grossly normal. NECK: JVD not raised; masses not palpable. HEART: First and second heart sounds are normal; no edema. LUNGS: Respiratory rate increased; , not able to speak in full sentences. Diminished breath sounds prolonged expiration and wheezing ABDOMEN: Soft, nontender, liver spleen not palpable, no masses palpable. PSYCH: Alert and oriented x3; mood and affect slightly anxious MUSCULAR skeletal: Evidence of OA. INVESTIGATIONS, reviewed in the clinical context: TSH 7.7 feet T4 1 0.6 WBC 6.2 hemoglobin 15 platelets 259 potassium, creatinine 0.62 AST 40 ALT 50 EKG tracing personally reviewed by me-sinus rhythm, left bundle-branch block, rate 67 Chest x-ray film personally reviewed by me-cardiomegaly, prominent interstitium possibly chronic Assessment and plan: -Acute severe COPD exacerbation in a current smoker: Slow to respond DuoNeb every 4, inhaled and IV steroids, long-acting beta agonist nebulizer -Possible acute tracheobronchitis Doxycycline -Chronic nicotine dependence patient cigarette smoker Nicotine patch -Primary osteoarthritis, multiple joints bilateral Pain medications as needed -Chronic gait dysfunction uses a walker Fall precautions -Hypothyroid. Synthroid. -Gallstones. Asymptomatic Continue current treatment plan. Care was discussed with the patient. Estimated patient to be hospital for at least more than 48 hours.
[2021-03-20] MEDS: IPRATROPIUM-ALBUTEROL 3 ML NEB INHALATION SCH ×6 (00:40→19:49)
[2021-03-20 05:10] LABS: Chol/HDL Ratio 4.47; LDL Cholesterol,Calculated 154.4 mg/dL (0.0-131.0); VLDL Calculation 15.6 mg/dL (5.00-40.00)
[2021-03-20] MEDS: FUROSEMIDE 10 MG/ML 4 ML VIAL IV SCH ×2 (06:53→17:18)
[2021-03-20] MEDS: LEVOTHYROXINE 112 MCG TAB PO SCH (06:53)
[2021-03-20 07:58] LABS: Anisocytosis Slight; Basophils # (A) 0.1 k/uL (0-0.2); Basophils % (A) 1 %; Eosinophils % (A) 0 %; HCT 47.7 % (34.0-46.0); HGB 15.2 gm/dL (11.4-16.0); Lymphocytes # (A) 0.8 k/uL (1.0-4.8); Lymphocytes % (A) 9 %; MCH 29.9 pg (25.0-35.0); MCHC 31.8 g/dL (31.0-37.0); Mean Platelet Volume 7.3; Monocytes # (A) 0.4 k/uL (0-1.0); Monocytes % (A) 5 %; Neutrophils # (A) 7.2 k/uL (1.3-7.7); Neutrophils % (A) 85 %; Platelet Count 248 k/uL (150-450); RBC 5.08 m/uL (3.80-5.40); WBC 8.6 k/uL (3.8-10.6)
[2021-03-20] MEDS: FORMOTEROL FUMARATE 20 MCG/2 ML NEBU INHALATION SCH ×2 (08:20→19:49)
[2021-03-20 08:29] LABS: African American GFR (CKD) >90 (>60 ml/min/1.73 sqM); Anion Gap 9 mmol/L; Blood Urea Nitrogen 18 mg/dL (7-17); Carbon Dioxide 26 mmol/L (22-30); Chloride 100 mmol/L (98-107); Glucose 112 mg/dL (74-99); Magnesium 2.2 mg/dL (1.6-2.3); Non-African American GFR(CKD) 87 (>60 ml/min/1.73 sqM); Potassium 3.9 mmol/L (3.5-5.1); Sodium 135 mmol/L (137-145)
[2021-03-20] MEDS: BUDESONIDE 1 MG/2 ML NEBU INHALATION SCH ×2 (08:34→19:49)
[2021-03-20] MEDS: methylPREDNISolone SOD SUCCI 40 MG/ML 1 ML VIAL IV SCH ×3 (09:00→23:35)
[2021-03-20] MEDS: NICOTINE 21MG/24HR PATCH TRANSDERM SCH (09:00)
[2021-03-20] MEDS: CLOPIDOGREL 75 MG TAB PO SCH (09:01)
[2021-03-20] MEDS: SPIRONOLACTONE 25 MG TAB PO SCH (09:01)
[2021-03-20] MEDS: FAMOTIDINE 20 MG TAB PO SCH ×2 (09:01→19:47)
[2021-03-20] MEDS: DOXYCYCLINE 100 MG CAP PO SCH ×2 (09:01→19:47)
[2021-03-20] MEDS: METOPROLOL SUCCINATE (ER) 25 MG TAB.ER.24H PO SCH (09:01)
[2021-03-20] MEDS: HEPARIN SOD,PORK IN 0.45% NACL 25,000 UNIT in 0.45% NACL 1 250ML.BAG IV SCH (11:04)
--- NOTE | 2021-03-20 13:04 | P.PN ---
Subjective Progress Note Date: 03/20/21 HISTORY OF PRESENT ILLNESS: This is a pleasant 85-year-old female past medical history significant for COPD, hypertension, hypothyroidism, chronic nicotine dependence. 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 We have been asked to see in consultation for congestive heart failure. Patient states she was waiting for a ride yesterday doing errands, she states she was sitting outside smoking a cigarette. She states that all of a sudden she had acute onset shortness of breath, felt she could not breath. EMS was called and patient was brought to the emergency room. Patient was hypoxic in EMS, apparently SpO2 60s%. Patient was given 2 breathing treatments was feeling better when she arrived. She denies any history of heart disease, diabetes, coronary artery disease. She denies family history of heart disease. She is a current every day smoker, has been smoking 1ppd since she was 16. She has symptoms of orthopnea or PND. She has lower extremity edema but states this is chronic and not new for her. She states she does wear oxygen at home but does not know how much. She also endorses a 40 pound unintentional weight loss over the last year. She denies chest pain, palpitations, lightheadedness, dizziness, syncope, diaphoresis, n ausea or abdominal pain. DIAGNOSTICS EKG reveals sinus rhythm with LBBB, left axis deviation, HR 67, prolonged QTc 534. No prior EKG to compare Telemetry tracings indicate patient in sinus mechanism LBBB, HR 55-70s Chest xray cardiomegaly, interstitial edema, bilateral pleural effusions Echocardiogram 03/19- revealed severe global hypokinesis, left systolic function is severely impaired with EF <20%, grade 3 diastolic dysfunction, severe mitral regurgitation, moderate tricuspid regurgitation, moderate pulmonary hypertension RVSP 61mmHg, Mass located in the apical portion of the LV. Moderate pleural effusion. Laboratory reviewed, WBC 5.7, hemoglobin 14.2, platelets 208, troponin negative 1, proBNP 37,200, sodium 134, potassium 4.4, BUN 19, serum creatinine 0.54 TSH low, Free T4 within normal limits. Current home cardiac medications include Lasix 20 mg every 48 hours, Plavix 75 mg daily 03/20/2021 Patient examined this morning at the bedside. Patient is confused this morning. Family is present. Patient denies chest pain or pressure. She denies shortness of breath. She remains on nasal cannula. She remains on IV lasix. PHYSICAL EXAM: VITAL SIGNS: Reviewed. GENERAL: Well-developed in no acute distress. NECK: Supple. No JVD or thyromegaly LUNGS: Respirations even and unlabored. Lungs diminished with bibasilar rales HEART: Regular rate and rhythm. S1 and S2 heard. EXTREMITIES: Normal range of motion. No clubbing or cyanosis. Peripheral pul ses intact. 1+ bilateral lower extremity edema ASSESSMENT: Acute hypoxic respiratory failure most likely related to Acute systolic heart failure with reduced ejection fraction. Cardiomyopathy- EF <20% cannot identify if ischemic vs non-ischemic Left Ventricle Mass Severe mitral regurgitation Left bundle branch block - unclear of how long patient has had LBBB, no prior E KG to compare COPD exacerbation Chronic nicotine dependence History of hypertension History of hypothyroidism Elevated LFTs PLAN: Continue current cardiac medications Continue IV heparin Case management consulted for Cornell chávez. Will transition to oral anticoagulation post cardiac cath. Continue IV lasix NPO at midnight Anticipate cardiac cath tomorrow with Dr. Maria Further recommendations pending patient course Nurse practitioner note has been reviewed by physician. Signing provider agrees with the documented findings, assessment, and plan of care. Objective - Vital Signs Vital signs: Vital Signs Temp 97 F L 03/20/21 11:17 Pulse 70 03/20/21 12:08 Resp 18 03/20/21 11:20 BP 107/69 03/20/21 11:17 Pulse Ox 95 03/20/21 11:20 Intake & Output 03/19/21 03/20/21 03/20/21 18:59 06:59 18:59 Intake Total 754.861 0 228.722 Output Total 600 300 200 Balance 154.861 -300 28.722 Weight 63.6 kg 61.2 kg Intake: IV 10 Invasive Line 1 10 Intake, IV Titration 84.861 0 148.722 Amount Heparin Sod,Pork in 0.45% 84.861 0 148.722 NaCl 25,000 unit In 0.45 % NaCl 1 250ml.bag @ 18 UNITS/KG/HR 11.34 mls/hr IV .Q22H3M [facility] Rx#: [id number] Oral 660 80 Output: Urine 600 300 200 Other: Voiding Method Toilet Toilet Toilet Bedside Commode # Voids 2 # Bowel Movements 1 - Labs CBC & Chem 7: 03/20/21 07:42 03/20/21 07:42 Labs: Abnormal Lab Results - Last 24 Hours (Table) 03/19/21 03/19/21 03/20/21 Range/Units 08:52 17:16 01:15 Hct (34.0-46.0) % RDW (11.5-15.5) % Lymphocytes # (1.0-4.8) k/uL APTT 92.4 H 54.9 H (22.0-30.0) sec Sodium (137-145) mmol/L BUN (7-17) mg/dL Glucose (74-99) mg/dL Cholesterol 219 H (0-200) mg/dL LDL Cholesterol, Calc 154.4 H (0.0-131.0) mg/dL 03/20/21 03/20/21 03/20/21 Range/Units 07:42 07:42 07:42 Hct 47.7 H (34.0-46.0) % RDW 16.0 H (11.5-15.5) % Lymphocytes # 0.8 L (1.0-4.8) k/uL APTT 70.3 H (22.0-30.0) sec Sodium 135 L (137-145) mmol/L BUN 18 H (7-17) mg/dL Glucose 112 H (74-99) mg/dL Cholesterol (0-200) mg/dL LDL Cholesterol, Calc (0.0-131.0) mg/dL
[2021-03-20] MEDS ORDERED: ALPRAZolam 0.5 MG TAB PO PRN (13:17)
[2021-03-20] MEDS ORDERED: NITROGLYCERIN SL TABS 0.4 MG TAB SUBLINGUAL PRN (13:17)
[2021-03-20] MEDS ORDERED: ALPRAZolam 0.25 MG TAB PO PRN (13:17)
--- NOTE | 2021-03-20 15:02 | P.PN ---
Progress Note - Text Progress Note Date: 03/20/21 Chief Complaint: Shortness of breath History of presenting complaint: This is a pleasant 85-year-old patient, follows with Dr. Lyle.. Lives at [facility] Does use a walker to get about. Chronic stable medical conditions include osteoarthritis, gait dysfunction, hypothyroid. Patient presents with progressive increase in shortness of breath. Significant wheezing. The cough. No sputum production. No fever no chills. Appetite is okay. Patient has continued to smoke. Tired. No chest pain. Admitted with severe COPD exacerbation, CHF exacerbation, acute tracheal bronchitis. Started on nebulized bronchodilators, inhaled and IV steroids. IV Lasix. 2-D echo: EF less than 20% March 19: Resting in bed. Slight improvement in wheezing and cough. Eating some. March 20: Sitting at the edge of the bed. Breathing a bit better. Decreased shortness of breath. Tired. On IV Lasix. Review of systems: Was done for constitutional, cardiovascular, GI, pulmonary. relevant finding as above Active Medications Acetaminophen (Acetaminophen Tab 325 Mg Tab) 650 mg PO Q6HR PRN PRN Reason: Mild Pain or Fever > 100.5 Last Admin: 03/18/21 21:22 Dose: 650 mg Documented by: Al Hydroxide/Mg Hydroxide (Mag Hydrox/Al Hydrox/Simeth 30 Ml Cup) 15 ml PO Q6HR PRN PRN Reason: Indigestion Albuterol/Ipratropium (Ipratropium-Albuterol 3 Ml Neb) 3 ml INHALATION RT-Q4H CARLOS Last Admin: 03/20/21 11:59 Dose: 3 ml Documented by: Alprazolam (Alprazolam 0.25 Mg Tab) 0.25 mg PO Q6HR PRN PRN Reason: Anxiety Alprazolam (Alprazolam 0.25 Mg Tab) 0.25 mg PO Q6HR PRN PRN Reason: Mild Anxiety Alprazolam (Alprazolam 0.5 Mg Tab) 0.5 mg PO Q6HR PRN PRN Reason: Moderate Anxiety Aspirin (Aspirin 325 Mg Tab) 325 mg PO ONCE ONE Stop: 03/21/21 07:01 Atorvastatin Calcium (Atorvastatin 80 Mg Tab) 80 mg PO ONCE ONE Stop: 03/21/21 07:01 Budesonide (Budesonide 1 Mg/2 Ml Nebu) 1 mg INHALATION RT-BID [facility] Last Admin: 03/20/21 08:34 Dose: 1 mg Documented by: Calcium Carbonate/Glycine (Calcium Carbonate 500 Mg Chewable) 1,000 mg PO Q4HR PRN PRN Reason: Dyspepsia Last Admin: 03/18/21 21:22 Dose: 1,000 mg Documented by: Clopidogrel Bisulfate (Clopidogrel 75 Mg Tab) 75 mg PO DAILY [facility] Last Admin: 03/20/21 09:01 Dose: 75 mg Documented by: Doxycycline Monohydrate (Doxycycline 100 Mg Cap) 100 mg PO BID [facility] Last Admin: 03/20/21 09:01 Dose: 100 mg Documented by: Famotidine (Famotidine 20 Mg Tab) 20 mg PO BID@0800,1999 [facility] Last Admin: 03/20/21 09:01 Dose: 20 mg Documented by: Formoterol Fumarate (Formoterol Fumarate 20 Mcg/2 Ml Nebu) 20 mcg INHALATION RT-BID [facility] Last Admin: 03/20/21 08:20 Dose: 20 mcg Documented by: Furosemide (Furosemide 10 Mg/Ml 4 Ml Vial) 40 mg IV Q12H [facility] Last Admin: 03/20/21 06:53 Dose: 40 mg Documented by: Haloperidol (Haloperidol 5 Mg Tab) 2.5 mg PO TID PRN PRN Reason: Agitation or Acute Psychosis Heparin Sodium (Porcine) (Heparin Sodium 1,000 Un/Ml (10ml Vl)) 0 unit IV PER PROTOCOL PRN; Protocol PRN Reason: Low PTT Heparin Sodium/Sodium Chloride (25,000 unit/ Sodium Chloride) 250 mls @ 11.34 mls/hr IV .Q22H3M [facility]; Protocol Last Admin: 03/20/21 11:04 Dose: 13 units/kg/hr, 8.19 mls/hr Documented by: Sodium Chloride 1,000 ml/ IV (Solution) 1,000 mls @ 61.2 mls/hr IV .[id number] ONE Stop: 03/21/21 15:20 Heparin Sodium (Porcine) 10, (000 unit/ Sodium Chloride) 1,001 mls @ 999 mls/hr IRRIGATION ONCE PRN PRN Reason: INTRA-OP Stop: 03/21/21 23:00 Heparin Sodium (Porcine) 2,500 (unit/ Sodium Chloride) 250.5 mls @ 250 mls/hr IRRIGATION ONCE PRN PRN Reason: INTRA-OP Stop: 03/21/21 23:00 Lactulose (Lactulose 20 Gm/30 Ml Cup) 20 gm PO DAILY PRN PRN Reason: Constipation Levothyroxine Sodium (Levothyroxine 112 Mcg Tab) 112 mcg PO DAILY@0600 [facility] Last Admin: 03/20/21 06:53 Dose: 112 mcg Documented by: Lisinopril (Lisinopril 2.5 Mg Tab) 2.5 mg PO DAILY [facility] Last Admin: 03/20/21 09:01 Dose: 2.5 mg Documented by: Magnesium Hydroxide (Magnesium Hydroxide 2,400 Mg/10 Ml Cup) 2,400 mg PO DAILY PRN PRN Reason: Constipation Melatonin (Melatonin 3 Mg Tablet) 3 mg PO HS PRN PRN Reason: Insomnia Last Admin: 03/18/21 21:22 Dose: 3 mg Documented by: Methylprednisolone Sodium Succinate (Methylprednisolone Sod Succi 40 Mg/Ml 1 Ml Vial) 40 mg IV Q8HR [facility] Last Admin: 03/20/21 09:00 Dose: 40 mg Documented by: Metoprolol Succinate (Metoprolol Succinate (Er) 25 Mg Tab.Er.24h) 12.5 mg PO DAILY [facility] Last Admin: 03/20/21 09:01 Dose: 12.5 mg Documented by: Naloxone HCl (Naloxone 0.4 Mg/Ml 1 Ml Vial) 0.2 mg IV Q2M PRN PRN Reason: Opioid Reversal Nicotine (Nicotine 21mg/24hr Patch) 1 patch TRANSDERM DAILY [facility] Last Admin: 03/20/21 09:00 Dose: 1 patch Documented by: Nitroglycerin (Nitroglycerin Sl Tabs 0.4 Mg Tab) 0.4 mg SUBLINGUAL Q5M PRN PRN Reason: Chest Pain Ondansetron HCl (Ondansetron 4 Mg/2 Ml Vial) 4 mg IVP Q8HR PRN PRN Reason: Nausea And Vomiting Silver Sulfadiazine (Silver Sulfadiazine 1% Cream 25 Gm Tube) 1 applic TOPICAL DAILY@1000 [facility] Last Admin: 03/20/21 09:01 Dose: 1 applic Documented by: Spironolactone (Spironolactone 25 Mg Tab) 25 mg PO DAILY [facility] Last Admin: 03/20/21 09:01 Dose: 25 mg Documented by: Past medical history to include: COPD, hypertension, osteoarthritis, hypothyroid, gait dysfunction Family history: Reviewed, noncontributory to presentation Physical examination: VITAL SIGNS: 97, 63, 18, 107/69, 95% on 2 L GENERAL: Sitting at the edge bed, eating, tired EYES: Pupils equal. Conjunctiva normal. HEENT: External appearance of nose and ears normal, oral cavity grossly normal. NECK: JVD not raised; masses not palpable. HEART: First and second heart sounds are normal; no edema. LUNGS: Respiratory rate increased; , DC that Diminished breath sounds DC that ABDOMEN: Soft, nontender, liver spleen not palpable, no masses palpable. PSYCH: Alert and oriented x3; mood and affect slightly anxious MUSCULAR skeletal: Evidence of OA. INVESTIGATIONS, reviewed in the clinical context: March 20: WBC 8.6 hemoglobin 15.2 potassium 3.9 creatinine 0.55 2-D echocardiogram: Left ventricle severely dilated. Global hypokinesis. EF less than 20%. Severe mitral regurgitation. Moderate tricuspid regurgitation. Moderate pulmonary hypertension. Left ventricular mass. TSH 7.7 feet T4 1 0.6 WBC 6.2 hemoglobin 15 platelets 259 potassium, creatinine 0.62 AST 40 ALT 50 EKG tracing personally reviewed by me-sinus rhythm, left bundle-branch block, rate 67 Chest x-ray film personally reviewed by me-cardiomegaly, prominent interstitium possibly chronic Assessment and plan: -Acute severe COPD exacerbation in a current smoker: Improving DuoNeb every 4, inhaled and IV steroids, long-acting beta agonist nebulizer -Acute on chronic congestive heart exacerbation from systolic dysfunction EF less than 20%: Slow to respond IV Lasix 40 mg every 12. Toprol-XL. Aldactone -Severe mitral regurgitation, moderate tricuspid regurgitation. -Secondary moderate pulmonary hypertension due to COPD, CHF Follow clinically -Left ventricular mass IV heparin -IV heparin monitoring Follow PTT -Possible acute tracheobronchitis Doxycycline -Chronic nicotine dependence patient cigarette smoker Nicotine patch -Primary osteoarthritis, multiple joints bilateral Pain medications as needed -Chronic gait dysfunction uses a walker Fall precautions -Hypothyroid. Synthroid. -Gallstones. Asymptomatic Continue with IV Lasix. Decreased DuoNeb frequency to have 4 times a day. Cutback IV Solu-Medrol. Continue IV heparin. Repeat chest x-rays in the morning.
[2021-03-20] MEDS: haloperidoL 5 MG TAB PO PRN (17:19)
[2021-03-20] MEDS ORDERED: IPRATROPIUM-ALBUTEROL 3 ML NEB INHALATION PRN (20:56)
[2021-03-20] MEDS ORDERED: SODIUM CHLORIDE 0.9% 1,000 ML in EMPTY BAG 1 BAG IV ONE (23:00)
[2021-03-21] MEDS: FUROSEMIDE 10 MG/ML 4 ML VIAL IV SCH ×2 (02:39→16:53)
[2021-03-21] MEDS: SPIRONOLACTONE 25 MG TAB PO SCH (06:21)
[2021-03-21] MEDS: METOPROLOL SUCCINATE (ER) 25 MG TAB.ER.24H PO SCH (06:26)
[2021-03-21] MEDS: FAMOTIDINE 20 MG TAB PO SCH ×2 (06:27→22:56)
[2021-03-21] MEDS: methylPREDNISolone SOD SUCCI 40 MG/ML 1 ML VIAL IV SCH ×3 (06:27→22:57)
[2021-03-21] MEDS: CLOPIDOGREL 75 MG TAB PO SCH (06:27)
[2021-03-21] MEDS: LEVOTHYROXINE 112 MCG TAB PO SCH (06:27)
[2021-03-21] MEDS: NICOTINE 21MG/24HR PATCH TRANSDERM SCH (06:27)
[2021-03-21] MEDS: DOXYCYCLINE 100 MG CAP PO SCH ×2 (06:27→22:56)
[2021-03-21 06:28] LABS: Basophils % (A) 0 %; Eosinophils # (A) 0.1 k/uL (0-0.7); Eosinophils % (A) 1 %; HCT 37.8 % (34.0-46.0); HGB 13.1 gm/dL (11.4-16.0); Lymphocytes # (A) 0.6 k/uL (1.0-4.8); Lymphocytes % (A) 9 %; MCH 32.2 pg (25.0-35.0); MCHC 34.6 g/dL (31.0-37.0); MCV 92.9 fL (80.0-100.0); Mean Platelet Volume 8.7; Monocytes # (A) 0.4 k/uL (0-1.0); Monocytes % (A) 7 %; Neutrophils # (A) 5.5 k/uL (1.3-7.7); Neutrophils % (A) 83 %; Platelet Count 202 k/uL (150-450); RBC 4.07 m/uL (3.80-5.40); RDW 15.7 % (11.5-15.5); WBC 6.6 k/uL (3.8-10.6)
[2021-03-21] MEDS ORDERED: ATORVASTATIN 80 MG TAB PO ONE (07:00)
[2021-03-21] MEDS ORDERED: HEPARIN SODIUM,PORCINE 10,000 UNIT in SODIUM CHLORIDE 0.9% 1,000 ML IRRIGATION PRN (07:00)
[2021-03-21] MEDS ORDERED: ASPIRIN 325 MG TAB PO ONE (07:00)
[2021-03-21] MEDS ORDERED: HEPARIN SODIUM,PORCINE 2,500 UNIT in SODIUM CHLORIDE 0.9% 250 ML IRRIGATION PRN (07:00)
[2021-03-21] MEDS: HEPARIN SOD,PORK IN 0.45% NACL 25,000 UNIT in 0.45% NACL 1 250ML.BAG IV SCH (07:36)
[2021-03-21] MEDS: FORMOTEROL FUMARATE 20 MCG/2 ML NEBU INHALATION SCH ×2 (08:11→19:49)
[2021-03-21] MEDS: IPRATROPIUM-ALBUTEROL 3 ML NEB INHALATION SCH ×4 (08:11→19:49)
[2021-03-21] MEDS: BUDESONIDE 1 MG/2 ML NEBU INHALATION SCH ×2 (08:11→19:49)
[2021-03-21] MEDS ORDERED: IV FLUID CONTINUATION 1,000 ML IV ONE (11:37)
[2021-03-21] MEDS ORDERED: VERAPAMIL 2.5 MG/ML 2 ML AMP ONE (11:49)
[2021-03-21] MEDS ORDERED: LIDOCAINE 1% INJ 10MG/ML (20 ML MDV) ONE (11:49)
[2021-03-21] MEDS ORDERED: LIDOCAINE 1% INJ 10MG/ML (20 ML MDV) SQ ONE (12:00)
[2021-03-21] MEDS: fentaNYL (PF) 50 MCG/ML 2 ML AMP IV ONE ×2 (12:01→12:12)
[2021-03-21] MEDS ORDERED: fentaNYL (PF) 50 MCG/ML 2 ML AMP ONE (12:01)
[2021-03-21] MEDS: VERAPAMIL SYRINGE (5 MG/10 ML) INTRAARTER ONE ×2 (12:03→12:07)
[2021-03-21] MEDS ORDERED: IOPAMIDOL-370 125ML BTL INJ ONE (12:27)
[2021-03-21] MEDS ORDERED: RX INFO: IV CONTRAST WAS GIVEN 1 EACH MISC MISCELLANE PRN (12:33)
[2021-03-21] MEDS ORDERED: SODIUM CHLORIDE 0.9% 1,000 ML IV SCH (12:45)
--- NOTE | 2021-03-21 13:06 | CC ---
CARDIAC CATHETERIZATION REPORT DATE OF SERVICE: March 21, 2021 PERFORMING PHYSICIAN: Geovany Maria MD. PROCEDURE PERFORMED: Selective right and left coronary angiogram. INDICATION: Newly diagnosis cardiomyopathy with an ejection fraction of less than 20% for this 85- year-old female patient who was admitted to the hospital with acute hypoxic respiratory failure with acute exacerbation of heart failure with reduced ejection fraction. APPROACH: Right radial artery and right common femoral artery. COMPLICATION: None. LEVEL OF SEDATION: Moderate with sedation length of 27 minutes. PROCEDURE DESCRIPTION: After obtaining informed consent, the patient was brought to the cardiac petroleum refinery laborer. Initially the right radial artery was cannulated using micropuncture technique, the micropuncture wire passed easily. Then I placed a 5-Kazakh sheath at the right radial artery. I gave the patient 2 mg of verapamil IA. Attempting advancing 5-Kazakh JR4 from right radial approach was unsuccessful and the patient was experiencing pain in the right elbow and because of that I decided to abort the right radial approach and access the right common femoral artery. The right common femoral artery was cannulated using micropuncture technique, the micropuncture wire passed easily. Then I placed a 6-Kazakh sheath there. I did selective right and left coronary angiogram with JR4 and JL4 catheters. Left heart catheterization was not performed. By the end, I did selective right common femoral artery angiogram. SELECTIVE CORONARY ANGIOGRAM: 1. Right coronary artery is a large caliber vessel. It is a dominant vessel. The RCA is calcified. The RCA is occluded in the midportion by the bifurcation of the acute marginal branch. 2. The left main is calcified with mild disease only. It bifurcates into LCX. 3. The left circumflex is a large caliber vessel. It is a nondominant vessel. The left circumflex has mild disease in the proximal portion by the bifurcation of a large OM branch which appeared to have mild disease only. 4. The ramus intermedius is a large caliber vessel, appeared to be angiographically normal. 5. The LAD is a large caliber vessel with mild disease in the proximal portion. In the midportion, gives rise into a diagonal branch which is a medium caliber vessel, seems to be angiographically normal. CONCLUSION: 1. Calcified aorta as well as calcified right and left coronary systems. 2. 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 The RCA fills by bridging collaterals from the left coronary system. 3. Mild disease involving the left coronary system. POSTPROCEDURE MANAGEMENT: 1. Medical treatment. 2. Aggressive cholesterol control. 3. Maximize treatment for cardiomyopathy. 4. Follow up with the patient. ASHLEE / KASSIDY: [id number] /
--- NOTE | 2021-03-21 21:09 | P.PN ---
Progress Note - Text Progress Note Date: 03/21/21 Chief Complaint: Shortness of breath History of presenting complaint: This is a pleasant 85-year-old patient, follows with Dr. Lyle.. Lives at [facility] Does use a walker to get about. Chronic stable medical conditions include osteoarthritis, gait dysfunction, hypothyroid. Patient presents with progressive increase in shortness of breath. Significant wheezing. The cough. No sputum production. No fever no chills. Appetite is okay. Patient has continued to smoke. Tired. No chest pain. Admitted with severe COPD exacerbation, CHF exacerbation, acute tracheal bronchitis. Started on nebulized bronchodilators, inhaled and IV steroids. IV Lasix. 2-D echo: EF less than 20% March 19: Resting in bed. Slight improvement in wheezing and cough. Eating some. March 20: Sitting at the edge of the bed. Breathing a bit better. Decreased shortness of breath. Tired. On IV Lasix. March 21: Patient underwent a cardiac catheterization today. Found to have chronic disease. Not amenable to any intervention. Medical management. Discussed with Dr. Miller. Review of systems: Was done for constitutional, cardiovascular, GI, pulmonary. relevant finding as above Active Medications Acetaminophen (Acetaminophen Tab 325 Mg Tab) 650 mg PO Q6HR PRN PRN Reason: Mild Pain or Fever > 100.5 Last Admin: 03/18/21 21:22 Dose: 650 mg Documented by: Al Hydroxide/Mg Hydroxide (Mag Hydrox/Al Hydrox/Simeth 30 Ml Cup) 15 ml PO Q6HR PRN PRN Reason: Indigestion Albuterol/Ipratropium (Ipratropium-Albuterol 3 Ml Neb) 3 ml INHALATION RT-QID [facility] Last Admin: 03/21/21 19:49 Dose: 3 ml Documented by: Albuterol/Ipratropium (Ipratropium-Albuterol 3 Ml Neb) 3 ml INHALATION RT-Q2H PRN PRN Reason: Shortness Of Breath Or Wheezing Alprazolam (Alprazolam 0.25 Mg Tab) 0.25 mg PO Q6HR PRN PRN Reason: Anxiety Alprazolam (Alprazolam 0.25 Mg Tab) 0.25 mg PO Q6HR PRN PRN Reason: Mild Anxiety Alprazolam (Alprazolam 0.5 Mg Tab) 0.5 mg PO Q6HR PRN PRN Reason: Moderate Anxiety Budesonide (Budesonide 1 Mg/2 Ml Nebu) 1 mg INHALATION RT-BID [facility] Last Admin: 03/21/21 19:49 Dose: 1 mg Documented by: Calcium Carbonate/Glycine (Calcium Carbonate 500 Mg Chewable) 1,000 mg PO Q4HR PRN PRN Reason: Dyspepsia Last Admin: 03/18/21 21:22 Dose: 1,000 mg Documented by: Clopidogrel Bisulfate (Clopidogrel 75 Mg Tab) 75 mg PO DAILY [facility] Last Admin: 03/21/21 06:27 Dose: 75 mg Documented by: Doxycycline Monohydrate (Doxycycline 100 Mg Cap) 100 mg PO BID [facility] Last Admin: 03/21/21 06:27 Dose: 100 mg Documented by: Famotidine (Famotidine 20 Mg Tab) 20 mg PO BID@0800,1999 [facility] Last Admin: 03/21/21 06:27 Dose: 20 mg Documented by: Formoterol Fumarate (Formoterol Fumarate 20 Mcg/2 Ml Nebu) 20 mcg INHALATION RT-BID [facility] Last Admin: 03/21/21 19:49 Dose: 20 mcg Documented by: Furosemide (Furosemide 10 Mg/Ml 4 Ml Vial) 40 mg IV Q12H [facility] Last Admin: 03/21/21 16:53 Dose: 40 mg Documented by: Haloperidol (Haloperidol 5 Mg Tab) 2.5 mg PO TID PRN PRN Reason: Agitation or Acute Psychosis Last Admin: 03/20/21 17:19 Dose: 2.5 mg Documented by: Heparin Sodium (Porcine) (Heparin Sodium 1,000 Un/Ml (10ml Vl)) 0 unit IV PER PROTOCOL PRN; Protocol PRN Reason: Low PTT Heparin Sodium/Sodium Chloride (25,000 unit/ Sodium Chloride) 250 mls @ 11.34 mls/hr IV .Q22H3M [facility]; Protocol Last Admin: 03/21/21 07:36 Dose: Not Given Documented by: Heparin Sodium (Porcine) 10, (000 unit/ Sodium Chloride) 1,001 mls @ 999 mls/hr IRRIGATION ONCE PRN PRN Reason: INTRA-OP Stop: 03/21/21 23:00 Heparin Sodium (Porcine) 2,500 (unit/ Sodium Chloride) 250.5 mls @ 250 mls/hr IRRIGATION ONCE PRN PRN Reason: INTRA-OP Stop: 03/21/21 23:00 Lactulose (Lactulose 20 Gm/30 Ml Cup) 20 gm PO DAILY PRN PRN Reason: Constipation Levothyroxine Sodium (Levothyroxine 112 Mcg Tab) 112 mcg PO DAILY@0600 [facility] Last Admin: 03/21/21 06:27 Dose: 112 mcg Documented by: Lisinopril (Lisinopril 2.5 Mg Tab) 2.5 mg PO DAILY [facility] Last Admin: 03/21/21 06:26 Dose: 2.5 mg Documented by: Magnesium Hydroxide (Magnesium Hydroxide 2,400 Mg/10 Ml Cup) 2,400 mg PO DAILY PRN PRN Reason: Constipation Melatonin (Melatonin 3 Mg Tablet) 3 mg PO HS PRN PRN Reason: Insomnia Last Admin: 03/18/21 21:22 Dose: 3 mg Documented by: Methylprednisolone Sodium Succinate (Methylprednisolone Sod Succi 40 Mg/Ml 1 Ml Vial) 20 mg IV Q8HR [facility] Last Admin: 03/21/21 16:53 Dose: 20 mg Documented by: Metoprolol Succinate (Metoprolol Succinate (Er) 25 Mg Tab.Er.24h) 12.5 mg PO DAILY [facility] Last Admin: 03/21/21 06:26 Dose: 12.5 mg Documented by: Miscellaneous Information (Rx Info: Iv Contrast Was Given 1 Each Misc) 1 each MISCELLANE DAILY PRN PRN Reason: Per Protocol Stop: 03/23/21 12:33 Naloxone HCl (Naloxone 0.4 Mg/Ml 1 Ml Vial) 0.2 mg IV Q2M PRN PRN Reason: Opioid Reversal Nicotine (Nicotine 21mg/24hr Patch) 1 patch TRANSDERM DAILY [facility] Last Admin: 03/21/21 06:27 Dose: 1 patch Documented by: Nitroglycerin (Nitroglycerin Sl Tabs 0.4 Mg Tab) 0.4 mg SUBLINGUAL Q5M PRN PRN Reason: Chest Pain Ondansetron HCl (Ondansetron 4 Mg/2 Ml Vial) 4 mg IVP Q8HR PRN PRN Reason: Nausea And Vomiting Silver Sulfadiazine (Silver Sulfadiazine 1% Cream 25 Gm Tube) 1 applic TOPICAL DAILY@1000 [facility] Last Admin: 03/21/21 16:50 Dose: Not Given Documented by: Spironolactone (Spironolactone 25 Mg Tab) 25 mg PO DAILY [facility] Last Admin: 03/21/21 06:21 Dose: Not Given Documented by: Past medical history to include: COPD, hypertension, osteoarthritis, hypothyroid, gait dysfunction Family history: Reviewed, noncontributory to presentation Physical examination: VITAL SIGNS: 97.8, 59, 17, 96% at 2, 95% on 3 L GENERAL: Laying in bed, tired EYES: Pupils equal. Conjunctiva normal. HEENT: External appearance of nose and ears normal, oral cavity grossly normal. NECK: JVD not raised; masses not palpable. HEART: First and second heart sounds are normal; no edema. LUNGS: Respiratory rate increased; , decreased breath sounds ABDOMEN: Soft, nontender, liver spleen not palpable, no masses palpable. PSYCH: Tired, sleepy MUSCULAR skeletal: Evidence of OA. INVESTIGATIONS, reviewed in the clinical context: March 21: Cardiac catheterization [March 21]: Calcified aorta as well as calcified right and left: chronic total occlusion of the RCA in the midportion. Good collaterals. March 21: WBC 6.6 hemoglobin 13.1 platelets 202 proBNP [id number] March 20: WBC 8.6 hemoglobin 15.2 potassium 3.9 creatinine 0.55 2-D echocardiogram: Left ventricle severely dilated. Global hypokinesis. EF less than 20%. Severe mitral regurgitation. Moderate tricuspid regurgitation. Moderate pulmonary hypertension. Left ventricular mass. TSH 7.7 feet T4 1 0.6 WBC 6.2 hemoglobin 15 platelets 259 potassium, creatinine 0.62 AST 40 ALT 50 EKG tracing personally reviewed by me-sinus rhythm, left bundle-branch block, rate 67 Chest x-ray film personally reviewed by me-cardiomegaly, prominent interstitium possibly chronic Assessment and plan: -Acute severe COPD exacerbation in a current smoker: Improving DuoNeb every 4, inhaled and IV steroids, long-acting beta agonist nebulizer -Acute on chronic congestive heart exacerbation from systolic dysfunction EF less than 20%: Slow to respond IV Lasix 40 mg every 12. Toprol-XL. Aldactone -Coronary artery disease, not amenable to any intervention For medical management -Severe mitral regurgitation, moderate tricuspid regurgitation. -Secondary moderate pulmonary hypertension due to COPD, CHF Follow clinically -Left ventricular mass IV heparin -IV heparin monitoring Follow PTT -Possible acute tracheobronchitis Doxycycline -Chronic nicotine dependence patient cigarette smoker Nicotine patch -Primary osteoarthritis, multiple joints bilateral Pain medications as needed -Chronic gait dysfunction uses a walker Fall precautions -Hypothyroid. Synthroid. -Gallstones. Asymptomatic Continue with IV Lasix. Discussed with Dr. Miller. Continue other medications. DuoNeb. Prognosis guarded. Discussed with patient further tomorrow.
[2021-03-22] MEDS: HEPARIN SOD,PORK IN 0.45% NACL 25,000 UNIT in 0.45% NACL 1 250ML.BAG IV SCH (06:10)
[2021-03-22] MEDS: FAMOTIDINE 20 MG TAB PO SCH ×2 (07:16→20:08)
[2021-03-22] MEDS: methylPREDNISolone SOD SUCCI 40 MG/ML 1 ML VIAL IV SCH ×3 (07:16→23:40)
[2021-03-22] MEDS: FUROSEMIDE 10 MG/ML 4 ML VIAL IV SCH ×2 (07:16→17:18)
[2021-03-22] MEDS: LEVOTHYROXINE 112 MCG TAB PO SCH (07:16)
[2021-03-22 07:45] LABS: African American GFR (CKD) >90 (>60 ml/min/1.73 sqM); Anion Gap 7 mmol/L; Blood Urea Nitrogen 29 mg/dL (7-17); Calcium 9.1 mg/dL (8.4-10.2); Carbon Dioxide 31 mmol/L (22-30); Chloride 97 mmol/L (98-107); Glucose 103 mg/dL (74-99); Non-African American GFR(CKD) 83 (>60 ml/min/1.73 sqM); Potassium 3.6 mmol/L (3.5-5.1); Sodium 135 mmol/L (137-145)
[2021-03-22] MEDS: CLOPIDOGREL 75 MG TAB PO SCH (08:48)
[2021-03-22] MEDS: NICOTINE 21MG/24HR PATCH TRANSDERM SCH (08:49)
[2021-03-22] MEDS: SPIRONOLACTONE 25 MG TAB PO SCH (08:49)
[2021-03-22] MEDS: METOPROLOL SUCCINATE (ER) 25 MG TAB.ER.24H PO SCH (08:49)
[2021-03-22] MEDS: DOXYCYCLINE 100 MG CAP PO SCH ×2 (08:50→20:09)
[2021-03-22] MEDS: FORMOTEROL FUMARATE 20 MCG/2 ML NEBU INHALATION SCH ×2 (08:56→20:02)
[2021-03-22] MEDS: IPRATROPIUM-ALBUTEROL 3 ML NEB INHALATION SCH ×4 (08:56→19:40)
[2021-03-22] MEDS: BUDESONIDE 1 MG/2 ML NEBU INHALATION SCH ×2 (08:56→19:40)
[2021-03-22] MEDS ORDERED: ASPIRIN 81 MG PO SCH (09:00)
[2021-03-22] MEDS: ATORVASTATIN 40 MG TAB PO SCH (11:48)
[2021-03-22] MEDS: APIXABAN 5 MG TAB PO SCH ×2 (11:48→20:08)
--- NOTE | 2021-03-22 12:03 | P.PN ---
Subjective This is a pleasant 85-year-old female past medical history significant for COPD, hypertension, hypothyroidism, chronic nicotine dependence. 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 We have been asked to see in consultation for congestive heart failure. Patient admitted on 03/19 with acute onset shortness of breath while smoking a cigarrete outside. EMS was called and patient was brought to the emergency room. Patient was hypoxic in EMS, apparently SpO2 60s%. Patient was given 2 breathing treatments was feeling better when she arrived. She is a current every day smoker, has been smoking 1ppd since she was 16. She endorses symptoms of orthopnea or PND. Echocardiogram 03/19- revealed severe global hypokinesis, left systolic function is severely impaired with EF <20%, grade 3 diastolic dysfunction, severe mitral regurgitation, moderate tricuspid regurgitation, moderate pulmonary hypertension RVSP 61mmHg, Mass located in the apical portion of the LV. Moderate pleural effusion. 03/21 Patient underwent cardiac catheterization with Dr. Maria. Which revealed chronic total occlusion of mid RCA, Mild disease of the left coronary system, calcified aorta as well as calcified right and left coronary systems. Medical treatment was recommended. 03/22/2021: Patient seen and examined at bedside, she is pleasantly confused, does no remember her cardiac cath procedure. Telemetry tracings indicate patient in sinus mechanism LBBB, HR 55-70s. Laboratory reviewed, sodium 135, potassium 3.6, BUN 29, serum creatinine 0.6, proBNP 27,600. Patient currently maintained on aspirin 81 mg daily, atorvastatin 40mg daily, Plavix 75 mg daily, IV Lasix 40 mg twice a day, IV heparin drip lisinopril 2.5 mg daily, metoprolol 6.5 mg daily spironolactone 25 mg daily. Patient with 1.2L urine output over the past 24 h ours. PHYSICAL EXAMINATION Blood pressure 93/82 heart rate 63 afebrile and maintaining oxygen saturation 92% on room air, 95% on nasal cannula 2L. CONSTITUTIONAL: No apparent distress. HEENT: Head is normocephalic. Neck Supple. No JVD CHEST EXAMINATION: Lungs are diminished bilaterally, mild crackles in the bases. HEART EXAMINATION: Regular rate and rhythm. S1, S2 heard. Systolic ejection mu rmur at the apex ABDOMEN: Soft, nontender. Positive bowel sounds. EXTREMITIES: 1+ bilateral pitting edema, Bilateral calves wrapped in gauze Right radial cath site- clean, dry, bruising noted 2+ pulses Right femoral cath site- clean dry, 2+ pulses, no hematoma NEUROLOGIC EXAMINATION: Patient is awake, alert, oriented x 2- also she is confused about her medical care. ASSESSMENT Acute hypoxic respiratory failure Acute systolic heart failure with reduced ejection fraction. Cardiomyopathy- EF <20%, most likely ischemic, patient with chronic occlusion of RCA, she could of had a prior inferior [place] which could have caused her severe mitral regurgitation Left Ventricle Mass Severe mitral regurgitation Coronary artery disease Left bundle branch block - unclear of how long patient has had LBBB, no prior EKG to compare COPD exacerbation Chronic nicotine dependence History of hypertension History of hypothyroidism Elevated LFTs PLAN Continue IV Lasix 40mg BID for another 24 hours, most likely transition to PO tomorrow Continue metoprolol succinate 12.5mg daily, spironolactone 25mg daily, Lisinopril 2.5mg daily Continue aspirin and statin If patient's blood pressure stable, will increase beta casey as tolerated Will discontinue heparin and start Eliquis 10mg BID for LV thrombus. Per case management Eliquis coverage is $201.45/month. Patient will receive 1 free month at this time. Accurate I/Os, daily weights Continue cardiac telemetry Further recommendations pending clinical course Nurse Practitioner note has been reviewed, I agree with a documented findings and plan of care. Patient was seen and examined. Objective - Vital Signs Vital signs: Vital Signs Temp 97.6 F 03/22/21 08:00 Pulse 68 03/22/21 09:17 Resp 19 03/22/21 08:00 BP 93/82 03/22/21 08:00 Pulse Ox 95 03/22/21 08:57 Intake & Output 03/21/21 03/22/21 03/22/21 18:59 06:59 18:59 Intake Total 268.032 240 Output Total 550 300 Balance 268.032 -550 -60 Weight 62.5 kg Intake: IV 100 Intake, IV Titration 168.032 0 Amount Heparin Sod,Pork in 0.45% 168.032 0 NaCl 25,000 unit In 0.45 % NaCl 1 250ml.bag @ 18 UNITS/KG/HR 11.34 mls/hr IV .Q22H3M [facility] Rx#: [id number] Oral 240 Output: Urine 550 300 Other: Voiding Method Toilet Bedside Commode Bedside Commode # Voids 1 1 - Labs CBC & Chem 7: 03/21/21 06:18 03/22/21 07:13 Labs: Abnormal Lab Results - Last 24 Hours (Table) 03/22/21 Range/Units 07:13 Sodium 135 L (137-145) mmol/L Chloride 97 L (98-107) mmol/L Carbon Dioxide 31 H (22-30) mmol/L BUN 29 H (7-17) mg/dL Glucose 103 H (74-99) mg/dL Microbiology - Last 24 Hours (Table) 03/21/21 06:18 Blood Culture - Preliminary Blood No Growth after 24 hours
--- NOTE | 2021-03-22 13:39 | P.PN ---
Progress Note - Text Progress Note Date: 03/22/21 Chief Complaint: Shortness of breath History of presenting complaint: This is a pleasant 85-year-old patient, follows with Dr. Lyle.. Lives at [facility] Does use a walker to get about. Chronic stable medical conditions include osteoarthritis, gait dysfunction, hypothyroid. Patient presents with progressive increase in shortness of breath. Significant wheezing. The cough. No sputum production. No fever no chills. Appetite is okay. Patient has continued to smoke. Tired. No chest pain. Admitted with severe COPD exacerbation, CHF exacerbation, acute tracheal bronchitis. Started on nebulized bronchodilators, inhaled and IV steroids. IV Lasix. 2-D echo: EF less than 20% March 19: Resting in bed. Slight improvement in wheezing and cough. Eating some. March 20: Sitting at the edge of the bed. Breathing a bit better. Decreased shortness of breath. Tired. On IV Lasix. March 21: Patient underwent a cardiac catheterization today. Found to have chronic disease. Not amenable to any intervention. Medical management. Discussed with Dr. Miller. March 22: Sitting upon a chair. . No chest pain. Oral intake fair. Tired Review of systems: Was done for constitutional, cardiovascular, GI, pulmonary. relevant finding as above Active Medications Acetaminophen (Acetaminophen Tab 325 Mg Tab) 650 mg PO Q6HR PRN PRN Reason: Mild Pain or Fever > 100.5 Last Admin: 03/18/21 21:22 Dose: 650 mg Documented by: Al Hydroxide/Mg Hydroxide (Mag Hydrox/Al Hydrox/Simeth 30 Ml Cup) 15 ml PO Q6HR PRN PRN Reason: Indigestion Albuterol/Ipratropium (Ipratropium-Albuterol 3 Ml Neb) 3 ml INHALATION RT-QID [facility] Last Admin: 03/22/21 12:26 Dose: Not Given Documented by: Albuterol/Ipratropium (Ipratropium-Albuterol 3 Ml Neb) 3 ml INHALATION RT-Q2H PRN PRN Reason: Shortness Of Breath Or Wheezing Alprazolam (Alprazolam 0.25 Mg Tab) 0.25 mg PO Q6HR PRN PRN Reason: Anxiety Apixaban (Apixaban 5 Mg Tab) 10 mg PO BID [facility]; Protocol Stop: 03/28/21 10:29 Last Admin: 03/22/21 11:48 Dose: 10 mg Documented by: Aspirin (Aspirin 81 Mg) 81 mg PO DAILY [facility] Atorvastatin Calcium (Atorvastatin 40 Mg Tab) 40 mg PO DAILY [facility] Last Admin: 03/22/21 11:48 Dose: 40 mg Documented by: Budesonide (Budesonide 1 Mg/2 Ml Nebu) 1 mg INHALATION RT-BID [facility] Last Admin: 03/22/21 08:56 Dose: 1 mg Documented by: Calcium Carbonate/Glycine (Calcium Carbonate 500 Mg Chewable) 1,000 mg PO Q4HR PRN PRN Reason: Dyspepsia Last Admin: 03/18/21 21:22 Dose: 1,000 mg Documented by: Doxycycline Monohydrate (Doxycycline 100 Mg Cap) 100 mg PO BID [facility] Last Admin: 03/22/21 08:50 Dose: 100 mg Documented by: Famotidine (Famotidine 20 Mg Tab) 20 mg PO BID@0800,1999 [facility] Last Admin: 03/22/21 07:16 Dose: 20 mg Documented by: Formoterol Fumarate (Formoterol Fumarate 20 Mcg/2 Ml Nebu) 20 mcg INHALATION RT-BID [facility] Last Admin: 03/22/21 08:56 Dose: 20 mcg Documented by: Furosemide (Furosemide 10 Mg/Ml 4 Ml Vial) 40 mg IV Q12H [facility] Last Admin: 03/22/21 07:16 Dose: 40 mg Documented by: Haloperidol (Haloperidol 5 Mg Tab) 2.5 mg PO TID PRN PRN Reason: Agitation or Acute Psychosis Last Admin: 03/20/21 17:19 Dose: 2.5 mg Documented by: Heparin Sodium (Porcine) (Heparin Sodium 1,000 Un/Ml (10ml Vl)) 0 unit IV PER PROTOCOL PRN; Protocol PRN Reason: Low PTT Lactulose (Lactulose 20 Gm/30 Ml Cup) 20 gm PO DAILY PRN PRN Reason: Constipation Levothyroxine Sodium (Levothyroxine 112 Mcg Tab) 112 mcg PO DAILY@0600 [facility] Last Admin: 03/22/21 07:16 Dose: 112 mcg Documented by: Lisinopril (Lisinopril 2.5 Mg Tab) 2.5 mg PO DAILY [facility] Last Admin: 03/22/21 08:49 Dose: 2.5 mg Documented by: Magnesium Hydroxide (Magnesium Hydroxide 2,400 Mg/10 Ml Cup) 2,400 mg PO DAILY PRN PRN Reason: Constipation Melatonin (Melatonin 3 Mg Tablet) 3 mg PO HS PRN PRN Reason: Insomnia Last Admin: 03/18/21 21:22 Dose: 3 mg Documented by: Methylprednisolone Sodium Succinate (Methylprednisolone Sod Succi 40 Mg/Ml 1 Ml Vial) 20 mg IV Q8HR [facility] Last Admin: 03/22/21 07:16 Dose: 20 mg Documented by: Metoprolol Succinate (Metoprolol Succinate (Er) 25 Mg Tab.Er.24h) 12.5 mg PO DAILY [facility] Last Admin: 03/22/21 08:49 Dose: 12.5 mg Documented by: Miscellaneous Information (Rx Info: Iv Contrast Was Given 1 Each Misc) 1 each MISCELLANE DAILY PRN PRN Reason: Per Protocol Stop: 03/23/21 12:33 Naloxone HCl (Naloxone 0.4 Mg/Ml 1 Ml Vial) 0.2 mg IV Q2M PRN PRN Reason: Opioid Reversal Nicotine (Nicotine 21mg/24hr Patch) 1 patch TRANSDERM DAILY [facility] Last Admin: 03/22/21 08:49 Dose: 1 patch Documented by: Nitroglycerin (Nitroglycerin Sl Tabs 0.4 Mg Tab) 0.4 mg SUBLINGUAL Q5M PRN PRN Reason: Chest Pain Ondansetron HCl (Ondansetron 4 Mg/2 Ml Vial) 4 mg IVP Q8HR PRN PRN Reason: Nausea And Vomiting Silver Sulfadiazine (Silver Sulfadiazine 1% Cream 25 Gm Tube) 1 applic TOPICAL DAILY@1000 [facility] Last Admin: 03/22/21 11:48 Dose: 1 applic Documented by: Spironolactone (Spironolactone 25 Mg Tab) 25 mg PO DAILY [facility] Last Admin: 03/22/21 08:49 Dose: 25 mg Documented by: Past medical history to include: COPD, hypertension, osteoarthritis, hypothyroid, gait dysfunction Family history: Reviewed, noncontributory to presentation Physical examination: VITAL SIGNS: 97.6, 83, 19, 93/82, 92% room air GENERAL: Sitting up in a chair, awake, tired EYES: Pupils equal. Conjunctiva normal. HEENT: External appearance of nose and ears normal, oral cavity grossly normal. NECK: JVD not raised; masses not palpable. HEART: First and second heart sounds are normal; no edema. LUNGS: Respiratory rate increased; , decreased breath sounds ABDOMEN: Soft, nontender, liver spleen not palpable, no masses palpable. PSYCH: AO - times three. Mood and affect tired MUSCULAR skeletal: Evidence of OA. 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 Good collaterals. March 21: WBC 6.6 hemoglobin 13.1 platelets 202 proBNP [id number] March 20: WBC 8.6 hemoglobin 15.2 potassium 3.9 creatinine 0.55 2-D echocardiogram: Left ventricle severely dilated. Global hypokinesis. EF less than 20%. Severe mitral regurgitation. Moderate tricuspid regurgitation. Moderate pulmonary hypertension. Left ventricular mass. TSH 7.7 feet T4 1 0.6 WBC 6.2 hemoglobin 15 platelets 259 potassium, creatinine 0.62 AST 40 ALT 50 EKG tracing personally reviewed by me-sinus rhythm, left bundle-branch block, rate 67 Chest x-ray film personally reviewed by me-cardiomegaly, prominent interstitium possibly chronic Assessment and plan: -Acute severe COPD exacerbation in a current smoker: Improving DuoNeb 4 times a day, inhaled and IV steroids-changed to by mouth steroids, long-acting beta agonist nebulizer -Acute on chronic congestive heart exacerbation from systolic dysfunction EF less than 20%: Slow to respond IV Lasix 40 mg every 12. Toprol-XL. Aldactone -Coronary artery disease, not amenable to any intervention For medical management -Severe mitral regurgitation, moderate tricuspid regurgitation. -Secondary moderate pulmonary hypertension due to COPD, CHF Follow clinically -Left ventricular mass IV heparin-discontinued. Started on eliquis -IV heparin monitoring-discontinued Follow PTT -Possible acute tracheobronchitis-improved Doxycycline -Chronic nicotine dependence patient cigarette smoker Nicotine patch -Primary osteoarthritis, multiple joints bilateral Pain medications as needed -Chronic gait dysfunction uses a walker Fall precautions -Hypothyroid. Synthroid. -Gallstones. Asymptomatic IV heparin discontinued. Started on eliquis. Other medications to continue. Advanced care planning: Had a lengthy talk with the patient. She understands the prognosis guarded. In view for cardiac and pulmonary status. She has advanced directives. She wants to be a DO NOT RESUSCITATE pending discussion with her daughter but really does not want any aggressive measurements. She takes her own decision, and her daughter is DP OA. I also spoke to Dr. Eason. Who does wish to proceed with DO NOT RESUSCITATE and feels is appropriate for patient and these also patient's wishes. Total time spent for ACP was 25 minutes
[2021-03-23] MEDS: haloperidoL 5 MG TAB PO PRN (01:02)
[2021-03-23] MEDS: FUROSEMIDE 10 MG/ML 4 ML VIAL IV SCH (05:27)
[2021-03-23] MEDS: LEVOTHYROXINE 112 MCG TAB PO SCH (05:27)
[2021-03-23 08:00] LABS: African American GFR (CKD) >90 (>60 ml/min/1.73 sqM); Anion Gap 4 mmol/L; Blood Urea Nitrogen 32 mg/dL (7-17); Calcium 9.1 mg/dL (8.4-10.2); Carbon Dioxide 38 mmol/L (22-30); Chloride 91 mmol/L (98-107); Glucose 140 mg/dL (74-99); Non-African American GFR(CKD) 82 (>60 ml/min/1.73 sqM); Potassium 3.9 mmol/L (3.5-5.1); Sodium 133 mmol/L (137-145)
[2021-03-23] MEDS: methylPREDNISolone SOD SUCCI 40 MG/ML 1 ML VIAL IV SCH ×2 (08:26→18:13)
[2021-03-23] MEDS: DOXYCYCLINE 100 MG CAP PO SCH (08:26)
[2021-03-23] MEDS: METOPROLOL SUCCINATE (ER) 25 MG TAB.ER.24H PO SCH (08:27)
[2021-03-23] MEDS: ATORVASTATIN 40 MG TAB PO SCH (08:27)
[2021-03-23] MEDS: BUDESONIDE 1 MG/2 ML NEBU INHALATION SCH (08:28)
[2021-03-23] MEDS: IPRATROPIUM-ALBUTEROL 3 ML NEB INHALATION SCH ×3 (08:28→15:23)
[2021-03-23] MEDS: SPIRONOLACTONE 25 MG TAB PO SCH (08:28)
[2021-03-23] MEDS: FAMOTIDINE 20 MG TAB PO SCH (08:28)
[2021-03-23] MEDS: FORMOTEROL FUMARATE 20 MCG/2 ML NEBU INHALATION SCH (08:28)
[2021-03-23] MEDS: APIXABAN 5 MG TAB PO SCH (08:28)
[2021-03-23 08:42] LABS: Glucose,Whole Blood 142 mg/dL (75-99)
[2021-03-23] MEDS ORDERED: ASPIRIN 81 MG PO SCH (09:00)
[2021-03-23] MEDS ORDERED: APIXABAN 5 MG TAB PO SCH (09:03)
--- NOTE | 2021-03-23 11:28 | P.PN ---
Subjective This is a pleasant 85-year-old female past medical history significant for COPD, hypertension, hypothyroidism, chronic nicotine dependence. 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 We have been asked to see in consultation for congestive heart failure. Patient admitted on 03/19 with acute onset shortness of breath while smoking a cigarrete outside. EMS was called and patient was brought to the emergency room. Patient was hypoxic in EMS, apparently SpO2 60s%. Echocardiogram 03/19- revealed severe global h ypokinesis, left systolic function is severely impaired with EF <20%, grade 3 diastolic dysfunction, severe mitral regurgitation, moderate tricuspid regurgitation, moderate pulmonary hypertension RVSP 61mmHg, Mass located in the apical portion of the LV. Moderate pleural effusion. 03/21 Patient underwent cardiac catheterization with Dr. Maria. Which revealed chronic total occlusion of mid RCA, Mild disease of the left coronary system, calcified aorta as well as calcified right and left coronary systems. Medical treatment was recommended. 03/23/2021: Patient seen and examined at bedside, she is awake, alert and oriented x 3. She denies any chest pain, shortness of breath, dizziness, lightheadedness, or palpitations. Telemetry tracings indicate patient in sinus mechanism LBBB, HR 50-70s. Laboratory reviewed, sodium 133, potassium 3.8, BUN 32, serum creatinine 0.67. Patient currently maintained on aspirin 81 mg daily, atorvastatin 40mg daily, IV Lasix 40 mg twice a day, Eliquis 10mg BID, lisinopril 2.5 mg daily, metoprolol tartrate 6.25 mg BID, spironolactone 25 mg daily. Patient with 2.5L urine output over the past 24 hours. PHYSICAL EXAMINATION Blood pressure 123/62 heart rate 64 afebrile and maintaining oxygen saturation 92% on 2-3L nasal cannula. CONSTITUTIONAL: No apparent distress. HEENT: Head is normocephalic. Neck Supple. No JVD CHEST EXAMINATION: Lungs are clear to auscultation bilaterally HEART EXAMINATION: Regular rate and rhythm. S1, S2 heard. Systolic ejection murmur at the apex ABDOMEN: Soft, nontender. Positive bowel sounds. EXTREMITIES: No Bilateral edema, Bilateral calves wrapped in gauze Right radial cath site- clean, dry, bruising noted 2+ pulses Right femoral cath site- clean dry, 2+ pulses, no hematoma NEUROLOGIC EXAMINATION: Patient is awake, alert, oriented x 3 ASSESSMENT Acute hypoxic respiratory failure Acute systolic heart failure with reduced ejection fraction. Cardiomyopathy- EF <20%, most likely ischemic, patient with chronic occlusion of RCA, she could of had a prior inferior HI which could have caused her severe mitral regurgitation Left Ventricle Mass Severe mitral regurgitation Coronary artery disease Left bundle branch block - unclear of how long patient has had LBBB, no prior EKG to compare COPD exacerbation Chronic nicotine dependence History of hypertension History of hypothyroidism Elevated LFTs PLAN Transition to PO Lasix Increase metoprolol succinate to 25mg daily Increase lisinopril to 2.5mg BID Decrease Eliquis to 5mg BID. Per case management Eliquis coverage is $201.45/month. Patient will receive 1 free month at this time. Continue spironolactone 25mg daily Continue aspirin and statin From a cardiology standpoint, if patient remains stable most likely discharge soon and have close follow up in the office with Dr. Maria Further recommendations pending clinical course Nurse Practitioner note has been reviewed, I agree with a documented findings and plan of care. Patient was seen and examined. Objective - Vital Signs Vital signs: Vital Signs Temp 97.8 F 03/23/21 08:23 Pulse 64 03/23/21 08:23 Resp 18 03/23/21 08:23 BP 123/62 03/23/21 08:23 Pulse Ox 95 03/23/21 08:23 Intake & Output 03/22/21 03/23/21 03/23/21 18:59 06:59 18:59 Intake Total 720 120 Output Total 750 1750 Balance -30 -1750 120 Weight 62.1 kg Intake: Intake, IV Titration 0 Amount Heparin Sod,Pork in 0.45% 0 NaCl 25,000 unit In 0.45 % NaCl 1 250ml.bag @ 18 UNITS/KG/HR 11.34 mls/hr IV .Q22H3M CARLOS Rx#: [id number] Oral 720 120 Output: Urine 750 1750 Other: Voiding Method Bedside Commode Bedside Commode Bedside Commode # Voids 1 - Labs CBC & Chem 7: 03/21/21 06:18 03/23/21 06:50 Labs: Abnormal Lab Results - Last 24 Hours (Table) 03/23/21 03/23/21 Range/Units 06:50 08:41 Sodium 133 L (137-145) mmol/L Chloride 91 L (98-107) mmol/L Carbon Dioxide 38 H (22-30) mmol/L BUN 32 H (7-17) mg/dL Glucose 140 H (74-99) mg/dL POC Glucose (mg/dL) 142 H (75-99) mg/dL Microbiology - Last 24 Hours (Table) 03/21/21 06:18 Blood Culture - Preliminary Blood No Growth after 48 hours
[2021-03-23] MEDS: NICOTINE 21MG/24HR PATCH TRANSDERM SCH (14:38)
[2021-03-23] MEDS ORDERED: FUROSEMIDE 20 MG TAB PO SCH (17:00)
[2021-03-23 18:18] VITALS: BP 122/65; PULSE 69; RESP 16; TEMP 97.9
--- NOTE | 2021-03-23 23:31 | P.DS ---
Providers Date of admission: 03/18/21 17:02 Expected date of discharge: 03/23/21 Attending physician: Refugio Jonas Consults: 03/18/21 17:02 Consult Physician Routine Consulting Provider: [facility] Consult Reason/Comments: Pulmonary edema Do you want consulting provider notified?: Yes Primary care physician: Calin [facility] Course: Chief Complaint: Shortness of breath History of presenting complaint: This is a pleasant 85-year-old patient, follows with Dr. Lyle.. Lives at [facility] Does use a walker to get about. Chronic stable medical conditions include osteoarthritis, gait dysfunction, hypothyroid. Patient presents with progressive increase in shortness of breath. Significant wheezing. The cough. No sputum production. No fever no chills. Appetite is okay. Patient has continued to smoke. Tired. No chest pain. Admitted with severe COPD exacerbation, CHF exacerbation, acute tracheal bronchitis. Started on nebulized bronchodilators, inhaled and IV steroids. IV Lasix. 2-D echo: EF less than 20%. Cardiac catheterization showed chronic disease. After discussion with the patient and daughter. Made DO NOT RESUSCITATE. March 19: Resting in bed. Slight improvement in wheezing and cough. Eating some. March 20: Sitting at the edge of the bed. Breathing a bit better. Decreased shortness of breath. Tired. On IV Lasix. March 21: Patient underwent a cardiac catheterization today. Found to have chronic disease. Not amenable to any intervention. Medical management. Discussed with Dr. Miller. March 22: Sitting upon a chair. . No chest pain. Oral intake fair. Tired March 23: Stable. Breathing stable. Oral intake fair. Discussed with pillowcase turner/social studies department chair. Patient be returning to her assisted living. Prognosis guarded. CODE STATUS DO NOT RESUSCITATE after discussion yesterday with the patient and the daughter. Discussion and discharge planning more than 35 minutes Consultation: [facility] Past medical history to include: COPD, hypertension, osteoarthritis, hypothyroid, gait dysfunction Family history: Reviewed, noncontributory to presentation Physical examination: VITAL SIGNS: 97.9, 69, 16, 122/65, 95% on 3 L GENERAL: Sitting up in a chair, awake, EYES: Pupils equal. Conjunctiva normal. HEENT: External appearance of nose and ears normal, oral cavity grossly normal. NECK: JVD not raised; masses not palpable. HEART: First and second heart sounds are normal; no edema. LUNGS: Respiratory rate increased; , decreased breath sounds ABDOMEN: Soft, nontender, liver spleen not palpable, no masses palpable. PSYCH: AO - times three. Mood and affect tired MUSCULAR skeletal: Evidence of OA. 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 Good collaterals. March 21: WBC 6.6 hemoglobin 13.1 platelets 202 proBNP [id number] March 20: WBC 8.6 hemoglobin 15.2 potassium 3.9 creatinine 0.55 2-D echocardiogram: Left ventricle severely dilated. Global hypokinesis. EF less than 20%. Severe mitral regurgitation. Moderate tricuspid regurgitation. Moderate pulmonary hypertension. Left ventricular mass. TSH 7.7 feet T4 1 0.6 WBC 6.2 hemoglobin 15 platelets 259 potassium, creatinine 0.62 AST 40 ALT 50 EKG tracing personally reviewed by me-sinus rhythm, left bundle-branch block, rate 67 Chest x-ray film personally reviewed by me-cardiomegaly, prominent interstitium possibly chronic Assessment and plan: -Acute severe COPD exacerbation in a current smoker:SUZANNE,F DuoNeb 4 times a day, inhaled and IV steroids-changed to by mouth steroids, long-acting beta agonist nebulizer. DC and steroid taper. -Acute on chronic congestive heart exacerbation from systolic dysfunction EF less than 20%: Better Lasix 20 mg twice a day Toprol-XL. Aldactone -Coronary artery disease, not amenable to any intervention For medical management -Severe mitral regurgitation, moderate tricuspid regurgitation. -Secondary moderate pulmonary hypertension due to COPD, CHF Follow clinically -Left ventricular mass IV heparin-discontinued. Started on eliquis -IV heparin monitoring-discontinued Follow PTT -Possible acute tracheobronchitis-improved Doxycycline -Chronic nicotine dependence patient cigarette smoker Nicotine patch -Primary osteoarthritis, multiple joints bilateral Pain medications as needed -Chronic gait dysfunction uses a walker Fall precautions -Hypothyroid. Synthroid. -Gallstones. Asymptomatic IV heparin discontinued. Started on eliquis. Other medications to continue. Disposition: Assisted living Plan - Discharge Summary Discharge Rx Participant: No New Discharge Prescriptions: New Spironolactone [Aldactone] 25 mg PO DAILY #30 tablet Ipratropium-Albuterol Nebulize [Duoneb 0.5 mg-3 mg/3 ml Soln] 0 ml INHALATION QID #120 neb Nicotine 21Mg/24Hr Patch [Habitrol] 1 each TRANSDERM DAILY #14 patch Atorvastatin Calcium [Lipitor] 40 mg PO HS #30 tablet predniSONE 10 mg PO DAILY #30 tab Budesonide [Pulmicort] 0.5 mg INHALATION BID #60 neb lisinopriL [Zestril] 2.5 mg PO BID #60 tab Apixaban [Eliquis Starter Pack (for VTE)] 0 mg PO DIRECTED 30 Days #1 pack Aspirin 81 mg PO DAILY chew Acetaminophen Tab [Tylenol] 650 mg PO Q6HR PRN tab PRN Reason: Mild Pain Or Fever > 100.5 Metoprolol Succinate (ER) [Toprol Xl] 25 mg PO DAILY #30 tab Continue SILVER sulfADIAZINE Cream [Silvadene 1% Cream] 1 applic TOPICAL DAILY@1000 Levothyroxine Sodium [Synthroid] 112 mcg PO DAILY@0600 Famotidine [Pepcid] 20 mg PO BID@08,1999 Changed Furosemide [Lasix] 20 mg PO BID #0 Discontinued Clopidogrel [Plavix] 75 mg PO DAILY@1700 Budesonide/Formoterol Fumarate [Symbicort 160-4.5 Mcg Inhaler] 2 puff INHALATION RT-BID@799,1999 Discharge Medication List Famotidine [Pepcid] 20 mg PO BID@0800,199903/18/21 [History] Levothyroxine Sodium [Synthroid] 112 mcg PO DAILY@0600 03/18/21 [History] SILVER sulfADIAZINE Cream [Silvadene 1% Cream] 1 applic TOPICAL DAILY@1000 03/18/21 [History] Apixaban [Eliquis Starter Pack (for VTE)] 0 mg PO DIRECTED 30 Days #1 pack 03/20/21 [Rx] Acetaminophen Tab [Tylenol] 650 mg PO Q6HR PRN tab 03/23/21 [Rx] Aspirin 81 mg PO DAILY chew 03/23/21 [Rx] Atorvastatin Calcium [Lipitor] 40 mg PO HS #30 tablet 03/23/21 [Rx] Budesonide [Pulmicort] 0.5 mg INHALATION BID #60 neb 03/23/21 [Rx] Furosemide [Lasix] 20 mg PO BID #0 03/23/21 [Rx] Ipratropium-Albuterol Nebulize [Duoneb 0.5 mg-3 mg/3 ml Soln] 0 ml INHALATION QID #120 neb 03/23/21 [Rx] Metoprolol Succinate (ER) [Toprol Xl] 25 mg PO DAILY #30 tab 03/23/21 [Rx] Nicotine 21Mg/24Hr Patch [Habitrol] 1 each TRANSDERM DAILY #14 patch 03/23/21 [Rx] Spironolactone [Aldactone] 25 mg PO DAILY #30 tablet 03/23/21 [Rx] lisinopriL [Zestril] 2.5 mg PO BID #60 tab 03/23/21 [Rx] predniSONE 10 mg PO DAILY #30 tab 03/23/21 [Rx] Follow up Appointment(s)/Referral(s): [facility], [NON-STAFF] - Calin Lyle DO [Primary Care Provider] - 03/24/21 8:40 am Geovany Maria MD [STAFF PHYSICIAN] - 1 Week (Nurse Practitioner Brenda will call with an appointment time; Yumi's number additionally given. ) Jose Antonio Choi [NON-STAFF] - ([facility] will deliver portable oxygen to the bedside and a concentrator to the patient's home at discharge. 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 Call Karen Galindo at discharge - to give report - [phone] 2. Call [facility] at [phone] to arrange a w/c van to Karen Galindo at [address] [place] [address], [place] [address] Discharge Disposition: HOME SELF-CARE
[2021-03-24] MEDS ORDERED: METOPROLOL SUCCINATE (ER) 25 MG TAB.ER.24H PO SCH (09:00)
== END 2021-03-23 19:44 | disposition home or self-care (01) | DRG 286 ==
LOC: EC 13:43 → 3SCARD 17:02
PROVIDERS: ADMIT Hospitalist; ATTEND Hospitalist
PROC: B41F1ZZ Fluoroscopy of Right Lower Extremity Arteries using Low Osmolar Contrast (ICD-10-PCS; principal; 2021-03-21 11:00)
PROC: B2111ZZ Fluoroscopy of Multiple Coronary Arteries using Low Osmolar Contrast (ICD-10-PCS; principal; 2021-03-21 11:00)
DX: I11.0 Hypertensive heart disease with heart failure (principal); J96.01 Acute respiratory failure with hypoxia; J44.1 Chronic obstructive pulmonary disease with (acute) exacerbation; J44.0 Chronic obstructive pulmonary disease with (acute) lower respiratory infection; I50.23 Acute on chronic systolic (congestive) heart failure; I25.82 Chronic total occlusion of coronary artery; I27.23 Pulmonary hypertension due to lung diseases and hypoxia; I25.10 Atherosclerotic heart disease of native coronary artery without angina pectoris; I70.0 Atherosclerosis of aorta; Z66 Do not resuscitate; I25.84 Coronary atherosclerosis due to calcified coronary lesion; J20.9 Acute bronchitis, unspecified; I08.1 Rheumatic disorders of both mitral and tricuspid valves; I25.5 Ischemic cardiomyopathy; I25.2 Old myocardial infarction; R79.89 Other specified abnormal findings of blood chemistry; I44.7 Left bundle-branch block, unspecified; R26.9 Unspecified abnormalities of gait and mobility; E03.9 Hypothyroidism, unspecified; K80.20 Calculus of gallbladder without cholecystitis without obstruction; R63.4 Abnormal weight loss; M89.49 Other hypertrophic osteoarthropathy, multiple sites; F17.210 Nicotine dependence, cigarettes, uncomplicated; Z71.6 Tobacco abuse counseling; Z79.51 Long term (current) use of inhaled steroids; Z79.02 Long term (current) use of antithrombotics/antiplatelets; Z79.890 Hormone replacement therapy; Z79.899 Other long term (current) drug therapy
CPT/HCPCS: 36415; 71046; 80048; 80053; 80061; 83605; 83735; 83880; 84145; 84439; 84443; 84484; 85025; 85610; 85730; 87040; 93005; 93306; 93458; 94640; 94760; 96374; 99285

== ENCOUNTER 2021-04-10 13:20 | Observation (INO) | payer MEDICARE ==
--- NOTE | 2021-04-10 13:31 | ED ---
Chest Pain HPI - General Stated Complaint: chest pain Time Seen by Provider: 04/10/21 13:20 Source: patient, EMS, RN notes reviewed, old records reviewed Mode of arrival: EMS - History of Present Illness Initial Comments: This is a 85-year-old female history of oxygen dependence and COPD who just quit smoking recently who was at the [facility] home she resides at when she started developing chest pain while at lunch. She states it was dull mid and left sternal currently she is pain-free and was mild to moderate severity. She was noted have a pulse ox of around 50 at the time is unclear whether she was on oxygen at the time or not. She currently has no symptoms she does have chronic lower extremity edema with erythema. Ears chills nausea vomiting sweats. MD Complaint: chest pain - Related Data Home Medications Medication Instructions Recorded Confirmed SILVER sulfADIAZINE Cream 1 applic TOPICAL DAILY@79903/18/21 04/10/21 [Silvadene 1% Cream] Apixaban [Eliquis] 5 mg PO BID@799,199904/10/21 04/10/21 Aspirin 81 mg PO DAILY@79904/10/21 04/10/21 Atorvastatin Calcium [Lipitor] 40 mg PO HS@199904/10/21 04/10/21 Budesonide [Pulmicort] 0.5 mg INHALATION RT-BID@799,199904/10/21 04/10/21 Furosemide [Lasix] 20 mg PO BID@0800,1200 04/10/21 04/10/21 Ipratropium-Albuterol Nebulize 3 ml INHALATION RT-QID 04/10/21 04/10/21 [Duoneb 0.5 mg-3 mg/3 ml Soln] Metoprolol Succinate (ER) [Toprol 25 mg PO HS@199904/10/21 04/10/21 Xl] Spironolactone [Aldactone] 25 mg PO DAILY@79904/10/21 04/10/21 lisinopriL [Zestril] 2.5 mg PO HS@199904/10/21 04/10/21 Previous Rx's Medication Instructions Recorded Acetaminophen Tab [Tylenol] 650 mg PO Q6HR PRN tab 03/23/21 Nicotine 21Mg/24Hr Patch [Habitrol] 1 each TRANSDERM DAILY #14 patch 03/23/21 Allergies Allergy/AdvReac Type Severity Reaction Status Date / Time No Known Allergies Allergy Verified 04/10/21 15:29 Review of Systems ROS Statement: Those systems with pertinent positive or pertinent negative responses have been documented in the HPI. ROS Other: All systems not noted in ROS Statement are negative. Past Medical History Past Medical History: COPD, Hypertension, Osteoarthritis (OA) History of Any Multi-Drug Resistant Organisms: None Reported Past Surgical History: Orthopedic Surgery Additional Past Surgical History / Comment(s): lt ankle Past Anesthesia/Blood Transfusion Reactions: No Reported Reaction Additional Past Anesthesia/Blood Transfusion Reaction / Comment(s): no blood transfusions Past Psychological History: No Psychological Hx Reported Smoking Status: Former smoker Past Alcohol Use History: Rare Past Drug Use History: None Reported General Exam - General Exam Comments Initial Comments: This a well-developed asthenic appearing female who is a awake alert oriented 3 General appearance: alert, in no apparent distress Head exam: Present: atraumatic, normocephalic, normal inspection Eye exam: Present: normal appearance, PERRL, EOMI. Absent: scleral icterus, conjunctival injection, periorbital swelling ENT exam: Present: normal exam, mucous membranes moist Neck exam: Present: normal inspection, full ROM, other (No stridor JVD or bruits). Absent: tenderness, meningismus, lymphadenopathy Respiratory exam: Present: decreased breath sounds (Sodium decreased breath sounds). Absent: respiratory distress, wheezes, rales, rhonchi, stridor, chest wall tenderness Cardiovascular Exam: Present: regular rate, normal rhythm, normal heart sounds. Absent: systolic murmur, diastolic murmur, rubs, gallop, clicks GI/Abdominal exam: Present: soft, normal bowel sounds. Absent: distended, tenderness, guarding, rebound, rigid Extremities exam: Present: full ROM, normal capillary refill, pedal edema (Stasis changes to both lower extremities dressing on the left lower extremity. No increased localized temperature at this time). Absent: tenderness, joint swelling, calf tenderness Back exam: Present: normal inspection Neurological exam: Present: alert, oriented X3, CN II-XII intact Psychiatric exam: Present: normal affect, normal mood Skin exam: Present: warm, dry, intact, normal color. Absent: rash Course Vital Signs 04/10/21 04/10/21 13:21 13:30 Temperature 98.1 F Pulse Rate 75 Respiratory 16 20 Rate Blood Pressure 106/64 106/64 O2 Sat by Pulse 96 Oximetry Chest Pain MDM - MDM Imaging reviewed evidence of bilateral small pleural effusions COPD and new compression fracture of the mid thoracic vertebrate. Please see the complete report I did discuss the findings with the patient family patient will be admitted for inpatient evaluation and treatment case will be discussed with Dr. Jonas. Disposition Clinical Impression: CHF (congestive heart failure), Chest pain, Pleural effusion Disposition: ADMITTED IP TO THIS HOSP Condition: Fair Referrals: Calin Lyle DO [Primary Care Provider] - 1-2 days
[2021-04-10 13:52] LABS: Basophils # (A) 0.1 k/uL (0-0.2); Basophils % (A) 1 %; Eosinophils # (A) 0.1 k/uL (0-0.7); Eosinophils % (A) 1 %; HCT 43.3 % (34.0-46.0); HGB 14.6 gm/dL (11.4-16.0); Lymphocytes % (A) 13 %; MCH 31.7 pg (25.0-35.0); MCHC 33.6 g/dL (31.0-37.0); MCV 94.1 fL (80.0-100.0); Mean Platelet Volume 7.1; Monocytes # (A) 0.5 k/uL (0-1.0); Monocytes % (A) 7 %; Neutrophils # (A) 5.6 k/uL (1.3-7.7); Neutrophils % (A) 76 %; Platelet Count 281 k/uL (150-450); RDW 15.3 % (11.5-15.5); WBC 7.3 k/uL (3.8-10.6)
--- NOTE | 2021-04-10 13:59 | XR ---
EXAMINATION TYPE: XR chest 2V DATE OF EXAM: 04/10/2021 COMPARISON: 03/18/2021 INDICATION: Chest pain TECHNIQUE: Frontal and lateral views of the chest are obtained. FINDINGS: The heart size is enlarged. The pulmonary vasculature is upper limits of normal. Small bilateral pleural effusions are present. There is an increased AP diameter compatible some мария le emphysematous changes. Old right rib fractures are evident. There is a compression deformity within the mid thoracic spine. This is a normal finding from 03/18/20 IMPRESSION: 1. Small bilateral pleural fluid collections. 2. COPD. 3. Cardiomegaly. 4. New compression deformity midthoracic spine
[2021-04-10 14:01] LABS: INR 0.9 (<1.2); Prothrombin Time 10.2 sec (9.0-12.0)
[2021-04-10 14:02] LABS: Partial Thromboplastin Time 23.8 sec (22.0-30.0)
[2021-04-10 14:04] LABS: ALT 24 U/L (4-34); AST 29 U/L (14-36); African American GFR (CKD) >90 (>60 ml/min/1.73 sqM); Albumin 3.5 g/dL (3.5-5.0); Alkaline Phosphatase 139 U/L (38-126); Anion Gap 7 mmol/L; Blood Urea Nitrogen 20 mg/dL (7-17); Calcium 8.8 mg/dL (8.4-10.2); Carbon Dioxide 28 mmol/L (22-30); Chloride 99 mmol/L (98-107); Creatine Kinase 30 U/L (30-135); Glucose 125 mg/dL (74-99); Magnesium 2.3 mg/dL (1.6-2.3); Non-African American GFR(CKD) 87 (>60 ml/min/1.73 sqM); Potassium 3.8 mmol/L (3.5-5.1); Sodium 134 mmol/L (137-145); Total Bilirubin 0.9 mg/dL (0.2-1.3); Total Protein 6.4 g/dL (6.3-8.2)
[2021-04-10] MEDS ORDERED: ACETAMINOPHEN TAB 325 MG TAB PO PRN (17:18)
[2021-04-10] MEDS ORDERED: METOPROLOL SUCCINATE (ER) 25 MG TAB.ER.24H PO SCH (20:00)
[2021-04-10] MEDS: NITROGLYCERIN OINT 1 INCH/GM PACKET TOPICAL SCH ×2 (20:54→20:59)
[2021-04-10] MEDS: APIXABAN 5 MG TAB PO SCH (20:57)
[2021-04-10] MEDS: ATORVASTATIN 40 MG TAB PO SCH (20:57)
[2021-04-10] MEDS: FUROSEMIDE 40 MG TAB PO SCH (20:58)
[2021-04-10] MEDS: IPRATROPIUM-ALBUTEROL 3 ML NEB INHALATION SCH (21:07)
[2021-04-10] MEDS: BUDESONIDE 0.5 MG/2 ML NEBU INHALATION SCH (21:09)
[2021-04-11] MEDS ORDERED: FUROSEMIDE 20 MG TAB PO SCH (08:00)
[2021-04-11] MEDS: FUROSEMIDE 40 MG TAB PO SCH (08:06)
[2021-04-11] MEDS: SPIRONOLACTONE 25 MG TAB PO SCH (08:06)
[2021-04-11] MEDS: ASPIRIN 81 MG PO SCH (08:06)
[2021-04-11] MEDS: NITROGLYCERIN OINT 1 INCH/GM PACKET TOPICAL SCH (08:06)
[2021-04-11] MEDS: APIXABAN 5 MG TAB PO SCH ×2 (08:06→19:19)
[2021-04-11] MEDS: NICOTINE 21MG/24HR PATCH TRANSDERM SCH (08:07)
[2021-04-11] MEDS: IPRATROPIUM-ALBUTEROL 3 ML NEB INHALATION SCH ×4 (08:11→20:16)
[2021-04-11] MEDS: BUDESONIDE 0.5 MG/2 ML NEBU INHALATION SCH ×2 (08:11→20:15)
[2021-04-11] MEDS ORDERED: FUROSEMIDE 10 MG/ML 4 ML VIAL IV SCH ×2 (09:00→21:00)
--- NOTE | 2021-04-11 12:01 | P.CRDCN ---
History of Present Illness History of present illness: HISTORY OF PRESENT ILLNESS: This is a 85-year-old female with a past medical history significant for COPD, hypertension, hypothyroidism, and chronic nicotine dependence. We have been asked to see the patient in consultation for chest pain. Patient examined at the bedside. Patient was recently admitted to the hospital in March 2021. She was evaluated by Dr. Miller at that time. Patient was found to have cardiomyopathy with ejection fraction less than 20%. Patient was also found to have a LV mass on echocardiogram and was started on Eliquis. Patient underwent cardiac catheterization revealing calcified aorta as well as calcified right and left coronary systems. 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 The RCA fills by bridging collaterals from left coronary system. Mild disease involving the left coronary system. Medical management was recommended. Patient states she was sitting having lunch yesterday when she began having chest pain and shortness of breath. She denies any radiation of the pain. She states the pain lasted approximately 30 minutes. Apparently her pulse ox was checked at that time and was found to be in the 50s. Patient was placed on supplemental oxygen. The patient states once she was given oxygen her chest pain and shortness of breath improved. She currently denies any chest pain or short of breath the time of my examination. The patient does complain of increased lower extremity edema. EKG reveals sinus mechanism. First degree AV block. Left axis deviation. Left bundle branch block. Chest xray small bilateral pleural effusions. COPD. Cardio megaly. No compression deformity mid thoracic spine. Laboratory data: WBC 7.3. Hemoglobin 14.6. Platelet count 281. Sodium 134. Potassium 3.8. BUN 20. Creatinine 0.56. Magnesium 2.3. Troponin 0.026. 0.041. 0.026. ProBNP 23,000. Current home cardiac medications include Aldactone 25 mg daily, metoprolol succinate 25 mg daily, lisinopril 2.5 mg daily, Lasix 20mg twice a day, Eliquis 5 mg twice a day, Lipitor 40 mg twice a day, and aspirin 81 mg daily REVIEW OF SYSTEMS: At the time of my exam: CONSTITUTIONAL: Denies fever or chills. HEENT: Denies blurred vision, vision changes, or eye pain. Denies hemoptysis CARDIOVASCULAR: Denies chest pain. Denies orthopnea. Denies PND. Denies palpitations RESPIRATORY: Denies shortness of breath. GASTROINTESTINAL: Denies abdominal pain. Denies nausea or vomiting. HEMATOLOGIC: Denies bleeding disorders. GENITOURINARY: Denies any blood in urine. SKIN: Denies pruitis. Denies rash. PHYSICAL EXAM: VITAL SIGNS: Reviewed. GENERAL: Well-developed in no acute distress. HEENT: Head is normocephalic. Pupils are equal, round. Sclerae anicteric. Mucous membranes of the mouth are moist. Neck supple. No JVD or thyromegaly LUNGS: Respirations even and unlabored. Lungs diminished with fine rales to left lower base HEART: Regular rate and rhythm. S1 and S2 heard. Systolic murmur noted. ABDOMEN: Soft. Nondistended. Nontender. EXTREMITIES: Normal range of motion. No clubbing or cyanosis. Peripheral pulses intact. 2+ bilateral lower extremity edema NEUROLOGIC: Awake and alert. Oriented x 3. ASSESSMENT: Acute hypoxic respiratory failure Acute exacerbation of COPD Acute exacerbation of chronic systolic congestive heart failure, ejection fraction 20% Abnormal troponin, not suggestive of acute coronary syndrome, likely type II ND secondary to oxygen supply and demand mismatch Coronary artery disease with recent cardiac catheterization revealing chronically occluded RCA Recent diagnosis of LV mass, on anticoagulation with Eliquis Severe mitral regurgitation Hypertension Hypothyroidism Chronic nicotine dependence PLAN: No need to repeat echocardiogram as this was performed in March 2021 Continue anticoagulation with Eliquis Resume home cardiac medications Will place patient on IV Lasix for approximately 24 hours. Anticipate transitioning to oral Lasix tomorrow Further recommendations pending patient course Nurse practitioner note has been reviewed by physician. Signing provider agrees with the documented findings, assessment, and plan of care. Past Medical History Past Medical History: COPD, Hypertension, Osteoarthritis (OA) History of Any Multi-Drug Resistant Organisms: None Reported Past Surgical History: Orthopedic Surgery Additional Past Surgical History / Comment(s): lt ankle Past Anesthesia/Blood Transfusion Reactions: No Reported Reaction Additional Past Anesthesia/Blood Transfusion Reaction / Comment(s): no blood transfusions Past Psychological History: No Psychological Hx Reported Smoking Status: Former smoker Past Alcohol Use History: Rare Past Drug Use History: None Reported Medications and Allergies Home Medications Medication Instructions Recorded Confirmed Type SILVER sulfADIAZINE Cream 1 applic TOPICAL DAILY@0800 03/18/21 04/10/21 History [Silvadene 1% Cream] Acetaminophen Tab [Tylenol] 650 mg PO Q6HR PRN tab 03/23/21 04/10/21 Rx Nicotine 21Mg/24Hr Patch [Habitrol] 1 each TRANSDERM DAILY #14 patch 03/23/21 04/10/21 Rx Apixaban [Eliquis] 5 mg PO BID@0800,199904/10/21 04/10/21 History Aspirin 81 mg PO DAILY@0804/10/21 04/10/21 History Atorvastatin Calcium [Lipitor] 40 mg PO HS@199904/10/21 04/10/21 History Budesonide [Pulmicort] 0.5 mg INHALATION RT-BID@799,199904/10/21 04/10/21 History Furosemide [Lasix] 20 mg PO BID@0800,1200 04/10/21 04/10/21 History Ipratropium-Albuterol Nebulize 3 ml INHALATION RT-QID 04/10/21 04/10/21 History [Duoneb 0.5 mg-3 mg/3 ml Soln] Metoprolol Succinate (ER) [Toprol 25 mg PO HS@199904/10/21 04/10/21 History Xl] Spironolactone [Aldactone] 25 mg PO DAILY@79904/10/21 04/10/21 History lisinopriL [Zestril] 2.5 mg PO HS@199904/10/21 04/10/21 History Allergies Allergy/AdvReac Type Severity Reaction Status Date / Time No Known Allergies Allergy Verified 04/10/21 15:29 Physical Exam Vitals: Vital Signs Temp Pulse Pulse Resp BP BP Pulse Ox 04/11/21 08:25 60 04/11/21 08:12 58 L 96 04/11/21 07:00 97.9 F 58 L 18 95/60 96 04/11/21 02:55 64 16 04/11/21 02:00 97.7 F 67 17 146/69 96 04/10/21 21:10 76 04/10/21 20:57 64 16 04/10/21 20:00 98.2 F 64 16 112/72 97 04/10/21 17:35 73 18 116/70 99 04/10/21 13:30 20 106/64 04/10/21 13:21 98.1 F 75 16 106/64 96 Intake and Output 04/10/21 04/11/2121 22:59 06:59 14:59 Other: Voiding Method Bedside Commode Bedside Commode # Voids 2 7 Weight 67.585 kg Results 04/10/21 13:39 04/10/21 13:39 Cardiac Enzymes 04/10/21 04/10/21 04/10/21 Range/Units 13:39 13:39 17:48 AST 29 (14-36) U/L Troponin I 0.026 0.041 H* (0.000-0.034) ng/mL 04/10/21 Range/Units 20:32 AST (14-36) U/L Troponin I 0.026 (0.000-0.034) ng/mL Coagulation 04/10/21 Range/Units 13:39 PT 10.2 (9.0-12.0) sec APTT 23.8 (22.0-30.0) sec CBC 04/10/21 Range/Units 13:39 WBC 7.3 (3.8-10.6) k/uL RBC 4.60 (3.80-5.40) m/uL Hgb 14.6 (11.4-16.0) gm/dL Hct 43.3 (34.0-46.0) % Plt Count 281 (150-450) k/uL Comprehensive Metabolic Panel 04/10/21 Range/Units 13:39 Sodium 134 L (137-145) mmol/L Potassium 3.8 (3.5-5.1) mmol/L Chloride 99 (98-107) mmol/L Carbon Dioxide 28 (22-30) mmol/L BUN 20 H (7-17) mg/dL Creatinine 0.56 (0.52-1.04) mg/dL Glucose 125 H (74-99) mg/dL Calcium 8.8 (8.4-10.2) mg/dL AST 29 (14-36) U/L ALT 24 (4-34) U/L Alkaline Phosphatase 139 H (38-126) U/L Total Protein 6.4 (6.3-8.2) g/dL Albumin 3.5 (3.5-5.0) g/dL Current Medications Generic Name Dose Route Start Last Admin Trade Name Freq PRN Reason Stop Dose Admin Acetaminophen 650 mg 04/10/21 17:18 Acetaminophen Tab 325 Mg Tab PO Q6HR PRN Mild Pain or Fever > 100.5 Albuterol/Ipratropium 3 ml 04/10/21 20:00 04/11/21 08:11 Ipratropium-Albuterol 3 Ml Neb INHALATION 3 ml RT-QID CARLOS Administration Apixaban 5 mg 04/10/21 20:00 04/11/21 08:06 Apixaban 5 Mg Tab PO 5 mg BID@ [facility] Administration Protocol Aspirin 81 mg 04/11/21 08:00 04/11/21 08:06 Aspirin 81 Mg PO 81 mg DAILY@799 [facility] Administration Atorvastatin Calcium 40 mg 04/10/21 20:00 04/10/21 20:57 Atorvastatin 40 Mg Tab PO 40 mg HS@1999 [facility] Administration Budesonide 0.5 mg 04/10/21 20:00 04/11/21 08:11 Budesonide 0.5 Mg/2 Ml Nebu INHALATION 0.5 mg RT-BID@ [facility] Administration Furosemide 40 mg 04/10/21 21:00 04/11/21 08:06 Furosemide 40 Mg Tab PO 40 mg Q12HR CARLOS Administration Lisinopril 2.5 mg 04/10/21 20:00 04/10/21 20:58 Lisinopril 2.5 Mg Tab PO 2.5 mg HS@1999 [facility] Administration Metoprolol Succinate 25 mg 04/10/21 20:00 04/10/21 20:58 Metoprolol Succinate (Er) 25 Mg Tab.Er.24h PO 25 mg HS@1999 [facility] Administration Nicotine 1 patch 04/11/21 09:00 04/11/21 08:07 Nicotine 21mg/24hr Patch TRANSDERM 1 patch DAILY [facility] Administration Nitroglycerin 0.5 inch 04/10/21 19:00 04/11/21 08:06 Nitroglycerin Oint 1 Inch/Gm Packet TOPICAL 0.5 inch QID [facility] Administration Silver Sulfadiazine 1 applic 04/11/21 08:00 Silver Sulfadiazine 1% Cream 25 Gm Tube TOPICAL DAILY@799 [facility] Spironolactone 25 mg 04/11/21 08:00 04/11/21 08:06 Spironolactone 25 Mg Tab PO 25 mg DAILY@08 [facility] Administration Intake and Output 04/10/21 04/11/21 04/11/21 22:59 06:59 14:59 Other: Voiding Method Bedside Commode Bedside Commode # Voids 2 7 Weight 67.585 kg 04/10/21 13:39 04/10/21 13:39
[2021-04-11] MEDS: METOPROLOL SUCCINATE (ER) 25 MG TAB.ER.24H PO SCH ×2 (12:17→19:19)
[2021-04-11] MEDS: ISOSORBIDE MONONITRATE ER 15 MG TAB PO SCH (12:17)
--- NOTE | 2021-04-11 17:26 | P.HPIM ---
History of Present Illness H&P Date: 04/11/21 Chief Complaint: Chest pressure History of presenting complaint: This is a pleasant 85-year-old patient, follows with Dr. Lyle.. Lives at [facility] Does use a walker to get about. Chronic stable medical conditions include osteoarthritis, gait dysfunction, hypothyroid. Left ventricular mass-on eliquis Raised in the hospital from March 18 through March 23. Admitted for COPD exacerbation, CHF exacerbation tracheobronchitis. EF less than 20%. Cardiac catheterization showed chronic disease. Patient was made DO NOT RESUSCITATE. Started on eliquis for left ventricular mass Patient now presented with sitting at lunch. Dinner pressure across the chest. Last her for about an hour and [place] on its own. No radiation no dizziness or lightheadedness. No change in bowel urine pattern. Appetite is okay. Patient also was short of breath and wheezing. No edema. Review of systems: GEN.: Tired EYES: None HEENT: None NECK: None RESPIRATORY: As above CARDIOVASCULAR: As above GASTROINTESTINAL: None GENITOURINARY: None MUSCULOSKELETAL: Joint pains LYMPHATICS: None HEMATOLOGICAL: None PSYCHIATRY: None NEUROLOGICAL: Uses a walker Past medical history to include: COPD, hypertension, osteoarthritis, hypothyroid, gait dysfunction. Coronary artery disease. CHF EF 20-25%, left ventricle mass Family history: Reviewed, noncontributory to presentation Physical examination: VITAL SIGNS: 97.9, 58, 18, 95 x 60, 96% on 2 L GENERAL: BMI 24.8, sitting up in bed, a bit tired EYES: Pupils equal. Conjunctiva normal. HEENT: External appearance of nose and ears normal, oral cavity grossly normal. NECK: JVD not raised; masses not palpable. HEART: First and second heart sounds are normal; no edema. LUNGS: Respiratory rate increased; Diminished breath sounds prolonged expiration ABDOMEN: Soft, nontender, liver spleen not palpable, no masses palpable. PSYCH: Alert and oriented x3; mood and affect slightly anxious MUSCULAR skeletal: Evidence of OA. NEUROLOGICAL: Cranial nerves grossly intact; no facial asymmetry, power and sensation grossly intact. LYMPHATICS: No lymph nodes palpable in the axilla and neck, INVESTIGATIONS, reviewed in the clinical context: WBC 7.3 hemoglobin 14.6 platelets 21 potassium 3.8 creatinine 0.56 Troponin I 0.026, 0.041, 0.026. ProBNP 23,000 EKG tracing personally reviewed by me-left bundle-branch block, 75 Chest x-ray film personally reviewed by me-cardiomegaly. Hyperinflation. Compression deformity of midthoracic spine. recent investigations Cardiac catheterization [March 21]: Calcified aorta as well as calcified right and left: chronic total occlusion of the RCA in the midportion. Good collat erals. 2-D echocardiogram: Left ventricle severely dilated. Global hypokinesis. EF less than 20%. Severe mitral regurgitation. Moderate tricuspid regurgitation. Moderate pulmonary hypertension. Left ventricular mass. Assessment and plan: -Unstable angina in a patient with known coronary artery disease Add Imdur 50 mg daily. Change Lopressor to 12.5 mg twice a day. -Acute severe COPD exacerbation ex-smoker DuoNeb 4 times a day, inhaled steroids, long-acting beta agonist -Acute on chronic congestive heart exacerbation from systolic dysfunction EF less than 20%: IV Lasix 40 mg every 12, Toprol-XL. Aldactone -Coronary artery disease, not amenable to any intervention For medical management -Severe mitral regurgitation, moderate tricuspid regurgitation. Follow clinically -Secondary moderate pulmonary hypertension due to COPD, CHF Follow clinically -Left ventricular mass IV heparin-discontinued. Started on eliquis -IV heparin monitoring-discontinued Follow PTT -Possible acute tracheobronchitis-improved Doxycycline -Chronic nicotine dependence patient cigarette smoker Nicotine patch -Primary osteoarthritis, multiple joints bilateral Pain medications as needed -Chronic gait dysfunction uses a walker Fall precautions -Hypothyroid. Synthroid. -Gallstones. Asymptomatic -DO NOT RESUSCITATE Cardiology consulted. Started IV Lasix. Imdur 50 mg daily. Lopressor changed to 12.5 twice daily. Home medications resumed. Care was discussed with the patient. Check labs in the morning. Past Medical History Past Medical History: COPD, Hypertension, Osteoarthritis (OA) History of Any Multi-Drug Resistant Organisms: None Reported Past Surgical History: Orthopedic Surgery Additional Past Surgical History / Comment(s): lt ankle Past Anesthesia/Blood Transfusion Reactions: No Reported Reaction Additional Past Anesthesia/Blood Transfusion Reaction / Comment(s): no blood transfusions Past Psychological History: No Psychological Hx Reported Smoking Status: Former smoker Past Alcohol Use History: Rare Past Drug Use History: None Reported Medications and Allergies Home Medications Medication Instructions Recorded Confirmed Type SILVER sulfADIAZINE Cream 1 applic TOPICAL DAILY@0800 03/18/21 04/10/21 History [Silvadene 1% Cream] Acetaminophen Tab [Tylenol] 650 mg PO Q6HR PRN tab 03/23/21 04/10/21 Rx Nicotine 21Mg/24Hr Patch [Habitrol] 1 each TRANSDERM DAILY #14 patch 03/23/21 04/10/21 Rx Apixaban [Eliquis] 5 mg PO BID@0800,199904/10/21 04/10/21 History Aspirin 81 mg PO DAILY@0800 04/10/21 04/10/21 History Atorvastatin Calcium [Lipitor] 40 mg PO HS@199904/10/21 04/10/21 History Budesonide [Pulmicort] 0.5 mg INHALATION RT-BID@00,199904/10/21 04/10/21 History Furosemide [Lasix] 20 mg PO BID@0800,1200 04/10/21 04/10/21 History Ipratropium-Albuterol Nebulize 3 ml INHALATION RT-QID 04/10/21 04/10/21 History [Duoneb 0.5 mg-3 mg/3 ml Soln] Metoprolol Succinate (ER) [Toprol 25 mg PO HS@199904/10/21 04/10/21 History Xl] Spironolactone [Aldactone] 25 mg PO DAILY@00 04/10/21 04/10/21 History lisinopriL [Zestril] 2.5 mg PO HS@199904/10/21 04/10/21 History Allergies Allergy/AdvReac Type Severity Reaction Status Date / Time No Known Allergies Allergy Verified 04/10/21 15:29 Physical Exam Vitals: Vital Signs Temp Pulse Pulse Resp BP BP Pulse Ox 04/11/21 08:25 60 04/11/21 08:12 58 L 96 04/11/21 07:00 97.9 F 58 L 18 95/60 96 04/11/21 02:55 64 16 04/11/21 02:00 97.7 F 67 17 146/69 96 04/10/21 21:10 76 04/10/21 20:57 64 16 04/10/21 20:00 98.2 F 64 16 112/72 97 04/10/21 17:35 73 18 116/70 99 04/10/21 13:30 20 106/64 04/10/21 13:21 98.1 F 75 16 106/64 96 Intake and Output 04/10/21 04/11/21 04/11/21 22:59 06:59 14:59 Other: Voiding Method Bedside Commode Bedside Commode # Voids 2 7 Weight 67.585 kg Results CBC & Chem 7: 04/10/21 13:39 04/10/21 13:39 Labs: Abnormal Lab Results - Last 24 Hours (Table) 04/10/21 04/10/21 Range/Units 13:39 17:48 Sodium 134 L (137-145) mmol/L BUN 20 H (7-17) mg/dL Glucose 125 H (74-99) mg/dL Alkaline Phosphatase 139 H (38-126) U/L Troponin I 0.041 H* (0.000-0.034) ng/mL Thrombosis Risk Factor Assmnt - Choose All That Apply Each Risk Factor Represents 3 Points: Age 75 years or older Other congenital or acquired thrombophilia - If yes, enter type in comment: No Thrombosis Risk Factor Assessment Total Risk Factor Score: 3 Thrombosis Risk Factor Assessment Level: Moderate Risk
[2021-04-11] MEDS: ATORVASTATIN 40 MG TAB PO SCH (19:19)
[2021-04-11] MEDS: FORMOTEROL FUMARATE 20 MCG/2 ML NEBU INHALATION SCH (20:16)
[2021-04-11] MEDS ORDERED: MELATONIN 3 MG TABLET PO SCH (21:30)
[2021-04-12 02:49] VITALS: RESP 17
[2021-04-12 07:06] LABS: African American GFR (CKD) >90 (>60 ml/min/1.73 sqM); Anion Gap 6 mmol/L; Blood Urea Nitrogen 21 mg/dL (7-17); Calcium 8.5 mg/dL (8.4-10.2); Carbon Dioxide 27 mmol/L (22-30); Chloride 97 mmol/L (98-107); Glucose 123 mg/dL (74-99); Non-African American GFR(CKD) 84 (>60 ml/min/1.73 sqM); Potassium 3.9 mmol/L (3.5-5.1); Sodium 130 mmol/L (137-145)
[2021-04-12] MEDS: FORMOTEROL FUMARATE 20 MCG/2 ML NEBU INHALATION SCH (07:32)
[2021-04-12] MEDS: IPRATROPIUM-ALBUTEROL 3 ML NEB INHALATION SCH ×2 (07:32→10:50)
[2021-04-12] MEDS: BUDESONIDE 0.5 MG/2 ML NEBU INHALATION SCH (07:32)
[2021-04-12] MEDS: ASPIRIN 81 MG PO SCH (08:43)
[2021-04-12] MEDS: ISOSORBIDE MONONITRATE ER 15 MG TAB PO SCH (08:43)
[2021-04-12] MEDS: APIXABAN 5 MG TAB PO SCH (08:43)
[2021-04-12] MEDS: NICOTINE 21MG/24HR PATCH TRANSDERM SCH (08:43)
[2021-04-12] MEDS: SPIRONOLACTONE 25 MG TAB PO SCH (08:45)
[2021-04-12] MEDS ORDERED: FUROSEMIDE 20 MG TAB PO SCH (09:00)
[2021-04-12] MEDS ORDERED: METOPROLOL SUCCINATE (ER) 25 MG TAB.ER.24H PO SCH (09:00)
[2021-04-12 09:34] VITALS: BP 91/49; TEMP 98
--- NOTE | 2021-04-12 10:08 | P.PN ---
Subjective This is a 85-year-old female with a past medical history significant for COPD, hypertension, hypothyroidism, and chronic nicotine dependence. We have been asked to see the patient in consultation for elevated troponin x 1. Patient was recently admitted to the hospital in March 2021. She was evaluated by Dr. Maria at that time. Patient was found to have cardiomyopathy with ejection fraction less than 20%. Patient was also found to have a LV mass on echocardiogram and was started on Eliquis. Patient underwent cardiac catheterization revealing calcified aorta as well as calcified right and left coronary systems. 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 The RCA fills by bridging collaterals from left coronary system. Mild disease involving the left coronary system. Medical management was recommended. Patient was admitted with an episode of chest pain. Also having worsening shortness of breath. EKG reveals sinus mechanism. First degree AV block. Left axis deviation. Left bundle branch block.Chest xray small bilateral pleural effusions. COPD. Cardiomegaly. No compression deformity mid thoracic spine. Troponin 0.026. 0.041. 0.026. ProBNP 23,000. 04/12/2021: Patient seen and examined at bedside, no acute distress. She states she is feeling much better. Denies any chest pain or shortness of breath. Patient states she has been having a lot of urine output. Blood pressure 91/49, heart rate 64, afebrile, maintaining oxygen saturation is 98% on 2 L nasal cannula. Laboratory data reviewed sodium 130, potassium 3.9, BUN 21, serum creatinine 0.62. She's currently maintained on Lasix 40 mg IV twice a day, aspirin Milligrams daily, Eliquis 5 mg twice a day, atorvastatin 40 mg nightly, lisinopril 2.5 mg nightly, metoprolol succinate 12.5 mg twice a day, spironolactone 25 mg daily. PHYSICAL EXAM: VITAL SIGNS: Reviewed. GENERAL: in no acute distress. HEENT: Neck supple. No JVD LUNGS: Respirations even and unlabored. Lungs diminished bilateral bases HEART: Regular rate and rhythm. S1 and S2 heard. Systolic murmur noted. ABDOMEN: Soft. Nondistended. Nontender. EXTREMITIES: Normal range of motion. No clubbing or cyanosis. Peripheral pulses intact. 2+ bilateral lower extremity edema NEUROLOGIC: Awake and alert. Oriented x 3. ASSESSMENT: Abnormal troponin, not suggestive of acute coronary syndrome, likely type II WA secondary to oxygen supply and demand mismatch Acute hypoxic respiratory failure Acute exacerbation of COPD Acute exacerbation of chronic systolic congestive heart failure, ejection fraction 20% Coronary artery disease with recent cardiac catheterization revealing chronically occluded RCA Recent diagnosis of LV mass, on anticoagulation with Eliquis Severe mitral regurgitation Hypertension Hypothyroidism Chronic nicotine dependence PLAN: No need to repeat echocardiogram as this was performed in March 2021 Continue anticoagulation with Eliquis, discontinue aspirin Resume home cardiac medications-atorvastatin, lisinopril, metoprolol succinate, spironolactone. Transition back to Lasix 20mg PO BID From a cardiology perspective, patient is stable to be discharged home. Recommend follow up in the office with Dr. Maria Nurse practitioner note has been reviewed by physician. Signing provider agrees with the documented findings, assessment, and plan of care. Objective - Vital Signs Vital signs: Vital Signs Temp 98.0 F 04/12/21 07:00 Pulse 67 04/12/21 07:50 Resp 17 04/12/21 07:00 BP 91/49 04/12/21 07:00 Pulse Ox 98 04/12/21 07:00 Intake & Output 04/11/21 04/12/21 04/12/21 18:59 06:59 18:59 Intake Total 180 Output Total 0 500 Balance 180 -500 Intake: Oral 180 Output: Urine 500 Emesis 0 0 Other: Voiding Method Bedside Commode # Voids 1 1 - Labs CBC & Chem 7: 04/10/21 13:39 04/12/21 06:37 Labs: Abnormal Lab Results - Last 24 Hours (Table) 04/12/21 Range/Units 06:37 Sodium 130 L (137-145) mmol/L Chloride 97 L (98-107) mmol/L BUN 21 H (7-17) mg/dL Glucose 123 H (74-99) mg/dL
[2021-04-12 11:00] VITALS: PULSE 70
--- NOTE | 2021-04-12 20:00 | P.DS ---
Providers Date of admission: 04/10/21 17:15 Expected date of discharge: 04/12/21 Attending physician: Refugio oJnas Consults: 04/10/21 19:14 Consult Physician Routine Consulting Provider: Violette Camilo Consult Reason/Comments: Positive trop Do you want consulting provider notified?: Yes Primary care physician: [facility] Course: Chief Complaint: Chest pressure History of presenting complaint: This is a pleasant 85-year-old patient, follows with Dr. Lyle.. Lives at [facility] Does use a walker to get about. Chronic stable medical conditions include osteoarthritis, gait dysfunction, hypothyroid. Left ventricular mass-on eliquis Raised in the hospital from March 18 through March 23. Admitted for COPD exacerbation, CHF exacerbation tracheobronchitis. EF less than 20%. Cardiac catheterization showed chronic disease. Patient was made DO NOT RESUSCITATE. Started on eliquis for left ventricular mass Patient now presented with sitting at lunch. Dinner pressure across the chest. Last her for about an hour and [place] on its own. No radiation no dizziness or lightheadedness. No change in bowel urine pattern. Appetite is okay. Patient also was short of breath and wheezing. No edema. Admitted with possible unstable angina. COPD exacerbation. Imdur 50 mg was added. Given nebulized bronchodilators. Inhaled steroids. Also CHF exacerbation. IV Lasix given. April 12: Patient doing better. No further chest pain. Cleared by cardiology. Questions answered. Consultation: Dr. Coronado from cardiology Past medical history to include: COPD, hypertension, osteoarthritis, hypothyroid, gait dysfunction. Coronary artery disease. CHF EF 20-25%, left ventricle mass Family history: Reviewed, noncontributory to presentation Physical examination: VITAL SIGNS: 98, 64, 17, 91/49, 98% on 2 L GENERAL: BMI 24.8, sitting up in bed, more comfortable EYES: Pupils equal. Conjunctiva normal. HEENT: External appearance of nose and ears normal, oral cavity grossly normal. NECK: JVD not raised; masses not palpable. HEART: First and second heart sounds are normal; no edema. LUNGS: Respiratory rate increased; Diminished breath sounds ABDOMEN: Soft, nontender, liver spleen not palpable, no masses palpable. PSYCH: Alert and oriented x3; mood and affect slightly anxious MUSCULAR skeletal: Evidence of OA. INVESTIGATIONS, reviewed in the clinical context: April 12: Potassium 3.9 creatinine 0.62 WBC 7.3 hemoglobin 14.6 platelets 21 potassium 3.8 creatinine 0.56 Troponin I 0.026, 0.041, 0.026. ProBNP 23,000 EKG tracing personally reviewed by me-left bundle-branch block, 75 Chest x-ray film personally reviewed by me-cardiomegaly. Hyperinflation. Compression deformity of midthoracic spine. recent investigations Cardiac catheterization [March 21]: Calcified aorta as well as calcified right and left: chronic total occlusion of the RCA in the midportion. Good collaterals. 2-D echocardiogram: Left ventricle severely dilated. Global hypokinesis. EF less than 20%. Severe mitral regurgitation. Moderate tricuspid regurgitation. Moderate pulmonary hypertension. Left ventricular mass. Assessment and plan: -Unstable angina in a patient with known coronary artery disease Imdur 15 mg daily. Lopressor -Acute severe COPD exacerbation ex-smoker: Better DuoNeb 4 times a day, inhaled steroids, long-acting beta agonist -Acute on chronic congestive heart exacerbation from systolic dysfunction EF less than 20%: IV Lasix 40 mg every 12, Toprol-XL. Aldactone -Coronary artery disease, not amenable to any intervention For medical management -Severe mitral regurgitation, moderate tricuspid regurgitation. Follow clinically -Secondary moderate pulmonary hypertension due to COPD, CHF Follow clinically -Left ventricular mass eliquis -Chronic nicotine dependence patient cigarette smoker Nicotine patch -Primary osteoarthritis, multiple joints bilateral Pain medications as needed -Chronic gait dysfunction uses a walker Fall precautions -Hypothyroid. Synthroid. -Gallstones. Asymptomatic -DO NOT RESUSCITATE Disposition: Home Plan - Discharge Summary Discharge Rx Participant: No New Discharge Prescriptions: New Isosorbide Mononitrate ER [Imdur] 15 mg PO DAILY #30 dose Continue SILVER sulfADIAZINE Cream [Silvadene 1% Cream] 1 applic TOPICAL DAILY@0800 Nicotine 21Mg/24Hr Patch [Habitrol] 1 each TRANSDERM DAILY #14 patch Apixaban [Eliquis] 5 mg PO BID@0800,2000 Furosemide [Lasix] 20 mg PO BID@0800,1200 Ipratropium-Albuterol Nebulize [Duoneb 0.5 mg-3 mg/3 ml Soln] 3 ml INHALATION RT-QID lisinopriL [Zestril] 2.5 mg PO HS@2000 Metoprolol Succinate (ER) [Toprol XL] 25 mg PO HS@1999 Spironolactone [Aldactone] 25 mg PO DAILY@0800 Acetaminophen Tab [Tylenol] 650 mg PO Q6HR PRN tab PRN Reason: Mild Pain Or Fever > 100.5 Atorvastatin Calcium [Lipitor] 40 mg PO HS@1999 Budesonide [Pulmicort] 0.5 mg INHALATION RT-BID@799,1999 Discontinued Aspirin 81 mg PO DAILY@0800 Discharge Medication List SILVER sulfADIAZINE Cream [Silvadene 1% Cream] 1 applic TOPICAL DAILY@79903/18/21 [History] Acetaminophen Tab [Tylenol] 650 mg PO Q6HR PRN tab 03/23/21 [Rx] Nicotine 21Mg/24Hr Patch [Habitrol] 1 each TRANSDERM DAILY #14 patch 03/23/21 [Rx] Apixaban [Eliquis] 5 mg PO BID@08,199904/10/21 [History] Atorvastatin Calcium [Lipitor] 40 mg PO HS@199904/10/21 [History] Budesonide [Pulmicort] 0.5 mg INHALATION RT-BID@799,199904/10/21 [History] Furosemide [Lasix] 20 mg PO BID@0800,1200 04/10/21 [History] Ipratropium-Albuterol Nebulize [Duoneb 0.5 mg-3 mg/3 ml Soln] 3 ml INHALATION RT-QID 04/10/21 [History] Metoprolol Succinate (ER) [Toprol XL] 25 mg PO HS@199904/10/21 [History] Spironolactone [Aldactone] 25 mg PO DAILY@0800 04/10/21 [History] lisinopriL [Zestril] 2.5 mg PO HS@199904/10/21 [History] Isosorbide Mononitrate ER [Imdur] 15 mg PO DAILY #30 dose 04/12/21 [Rx] Follow up Appointment(s)/Referral(s): Calin Lyle DO [Primary Care Provider] - 04/14/21 10:20 am Geovany Maria MD [STAFF PHYSICIAN] - 04/20/21 3:45 pm Patient Instructions/Handouts: Heart Failure (DC) Discharge Disposition: DC/[facility] INTERMEDIATE CARE FAC
== END 2021-04-12 13:15 ==
LOC: EC 13:20 → 6NMEDSUR 17:15
PROVIDERS: ADMIT Hospitalist; ATTEND Hospitalist
DX: I25.110 Atherosclerotic heart disease of native coronary artery with unstable angina pectoris (principal); J44.1 Chronic obstructive pulmonary disease with (acute) exacerbation; I27.23 Pulmonary hypertension due to lung diseases and hypoxia; F17.210 Nicotine dependence, cigarettes, uncomplicated; M19.91 Primary osteoarthritis, unspecified site; R26.9 Unspecified abnormalities of gait and mobility; E03.9 Hypothyroidism, unspecified; K80.20 Calculus of gallbladder without cholecystitis without obstruction; Z66 Do not resuscitate; I08.1 Rheumatic disorders of both mitral and tricuspid valves; I11.0 Hypertensive heart disease with heart failure; I50.23 Acute on chronic systolic (congestive) heart failure; I25.82 Chronic total occlusion of coronary artery; I42.9 Cardiomyopathy, unspecified; I44.0 Atrioventricular block, first degree; I44.7 Left bundle-branch block, unspecified; I70.0 Atherosclerosis of aorta; J96.01 Acute respiratory failure with hypoxia; Z79.01 Long term (current) use of anticoagulants; Z79.82 Long term (current) use of aspirin; Z79.899 Other long term (current) drug therapy
CPT/HCPCS: 96374; 99285; 36415; 94640 ×5; 94760; 93005; 83880; 80053; 80048; 82550; 83735; 84484; 85025; 85610; 85730; 71046; G0378 ×3; S4990 ×2; J1940

== ENCOUNTER 2021-04-13 10:19 | Inpatient (IN) | payer MEDICARE ==
--- NOTE | 2021-04-13 10:47 | ED ---
General Adult HPI - General Chief complaint: Chest Pain Stated complaint: SOB Time Seen by Provider: 04/13/21 10:29 Source: patient, EMS, RN notes reviewed, old records reviewed Mode of arrival: EMS Limitations: no limitations - History of Present Illness Initial comments: 85-year-old female with recent hospital admission for congestive heart failure. She was discharged home yesterday. She does live at an assisted living facility. This morning she had been evaluated by staff found to be hypoxic with complaints of chest pain. Patient is normally on 4 L. Apparently her oxygen had been turned off. She does complain of some lower chest discomfort time my evaluation. No fever. No cough. - Related Data Home Medications Medication Instructions Recorded Confirmed SILVER sulfADIAZINE Cream 1 applic TOPICAL DAILY@79903/18/21 04/13/21 [Silvadene 1% Cream] Apixaban [Eliquis] 5 mg PO BID@08,199904/10/21 04/13/21 Atorvastatin Calcium [Lipitor] 40 mg PO HS@199904/10/21 04/13/21 Budesonide [Pulmicort] 0.5 mg INHALATION RT-BID@799,199904/10/21 04/13/21 Furosemide [Lasix] 20 mg PO BID@0800,1200 04/10/21 04/13/21 Ipratropium-Albuterol Nebulize 3 ml INHALATION RT-QID 04/10/21 04/13/21 [Duoneb 0.5 mg-3 mg/3 ml Soln] Metoprolol Succinate (ER) [Toprol 25 mg PO HS@199904/10/21 04/13/21 XL] Spironolactone [Aldactone] 25 mg PO DAILY@79904/10/21 04/13/21 lisinopriL [Zestril] 2.5 mg PO HS@199904/10/21 04/13/21 Aspirin EC [Ecotrin Low Dose] 81 mg PO DAILY@79904/13/21 04/13/21 Nicotine 21Mg/24Hr Patch [Habitrol] 1 patch TRANSDERM DAILY@79904/13/21 04/13/21 Previous Rx's Medication Instructions Recorded Acetaminophen Tab [Tylenol] 650 mg PO Q6HR PRN tab 03/23/21 Allergies Allergy/AdvReac Type Severity Reaction Status Date / Time No Known Allergies Allergy Verified 04/13/21 11:28 Review of Systems ROS Statement: Those systems with pertinent positive or pertinent negative responses have been documented in the HPI. ROS Other: All systems not noted in ROS Statement are negative. Past Medical History Past Medical History: COPD, Hypertension, Osteoarthritis (OA) History of Any Multi-Drug Resistant Organisms: None Reported Past Surgical History: Orthopedic Surgery Additional Past Surgical History / Comment(s): lt ankle Past Anesthesia/Blood Transfusion Reactions: No Reported Reaction Additional Past Anesthesia/Blood Transfusion Reaction / Comment(s): no blood transfusions Past Psychological History: No Psychological Hx Reported Smoking Status: Former smoker Past Alcohol Use History: Rare Past Drug Use History: None Reported General Exam Limitations: no limitations General appearance: alert, in no apparent distress Head exam: Present: atraumatic, normocephalic Eye exam: Present: normal appearance, PERRL ENT exam: Present: normal exam Neck exam: Present: normal inspection. Absent: tenderness, meningismus Respiratory exam: Present: rales, decreased breath sounds. Absent: respiratory distress Cardiovascular Exam: Present: regular rate, normal rhythm GI/Abdominal exam: Present: soft. Absent: distended, tenderness, guarding, rebound Extremities exam: Present: pedal edema Neurological exam: Present: alert, oriented X3 Psychiatric exam: Present: normal affect, normal mood Skin exam: Present: warm, dry, intact. Absent: cyanosis, erythema Course Vital Signs 04/13/21 04/13/21 04/13/21 10:20 10:29 11:32 Temperature 97.3 F L Pulse Rate 63 57 L Respiratory 20 20 20 Rate Blood Pressure 94/61 95/58 O2 Sat by Pulse 99 100 Oximetry 04/13/21 13:12 Temperature Pulse Rate 61 Respiratory 18 Rate Blood Pressure 105/66 O2 Sat by Pulse 95 Oximetry EKG Findings - EKG Comments: EKG Findings:: EKG: Normal sinus rhythm, left axis, left bundle branch block, rate of 60 VA interval 188, QRS duration 176, QTC 512, no change compared to recent history of left bundle. Medical Decision Making - Medical Decision Making 85-year-old female with worsening chest pain, hypoxia. Symptoms did occur off of oxygen while at the assisted living facility where she resides. EKG is left bundle without acute change from prior. She has a stable CBC. She has a decreasing BNP, troponin is elevated compared to prior 0.1. I did discuss case with Dr. Jonas. Patient will be admitted, dose of IV antibiotics have been administered for right lower lung infiltrate. She does additionally have an effusion. - Lab Data Result diagrams: 04/13/21 10:44 04/13/21 10:44 Lab Results 04/13/21 04/13/21 04/13/21 Range/Units 10:44 10:44 10:44 WBC 6.6 (3.8-10.6) k/uL RBC 4.65 (3.80-5.40) m/uL Hgb 14.5 (11.4-16.0) gm/dL Hct 43.9 (34.0-46.0) % MCV 94.4 (80.0-100.0) fL MCH 31.1 (25.0-35.0) pg MCHC 33.0 (31.0-37.0) g/dL RDW 15.2 (11.5-15.5) % Plt Count 321 (150-450) k/uL MPV 7.1 Neutrophils % 71 % Lymphocytes % 17 % Monocytes % 8 % Eosinophils % 2 % Basophils % 1 % Neutrophils # 4.7 (1.3-7.7) k/uL Lymphocytes # 1.1 (1.0-4.8) k/uL Monocytes # 0.5 (0-1.0) k/uL Eosinophils # 0.1 (0-0.7) k/uL Basophils # 0.1 (0-0.2) k/uL PT 10.5 (9.0-12.0) sec INR 1.0 (<1.2) APTT 23.7 (22.0-30.0) sec Sodium 132 L (137-145) mmol/L Potassium 4.2 (3.5-5.1) mmol/L Chloride 96 L (98-107) mmol/L Carbon Dioxide 29 (22-30) mmol/L Anion Gap 7 mmol/L BUN 25 H (7-17) mg/dL Creatinine 0.62 (0.52-1.04) mg/dL Est GFR (CKD-EPI)AfAm >90 (>60 ml/min/1.73 sqM) Est GFR (CKD-EPI)NonAf 84 (>60 ml/min/1.73 sqM) Glucose 120 H (74-99) mg/dL Calcium 8.9 (8.4-10.2) mg/dL Magnesium 2.3 (1.6-2.3) mg/dL Total Bilirubin 1.2 (0.2-1.3) mg/dL AST 38 H (14-36) U/L ALT 20 (4-34) U/L Alkaline Phosphatase 124 (38-126) U/L Troponin I (0.000-0.034) ng/mL NT-Pro-B Natriuret Pep pg/mL Total Protein 6.6 (6.3-8.2) g/dL Albumin 3.5 (3.5-5.0) g/dL 04/13/21 04/13/21 Range/Units 10:44 10:44 WBC (3.8-10.6) k/uL RBC (3.80-5.40) m/uL Hgb (11.4-16.0) gm/dL Hct (34.0-46.0) % MCV (80.0-100.0) fL MCH (25.0-35.0) pg MCHC (31.0-37.0) g/dL RDW (11.5-15.5) % Plt Count (150-450) k/uL MPV Neutrophils % % Lymphocytes % % Monocytes % % Eosinophils % % Basophils % % Neutrophils # (1.3-7.7) k/uL Lymphocytes # (1.0-4.8) k/uL Monocytes # (0-1.0) k/uL Eosinophils # (0-0.7) k/uL Basophils # (0-0.2) k/uL PT (9.0-12.0) sec INR (<1.2) APTT (22.0-30.0) sec Sodium (137-145) mmol/L Potassium (3.5-5.1) mmol/L Chloride (98-107) mmol/L Carbon Dioxide (22-30) mmol/L Anion Gap mmol/L BUN (7-17) mg/dL Creatinine (0.52-1.04) mg/dL Est GFR (CKD-EPI)AfAm (>60 ml/min/1.73 sqM) Est GFR (CKD-EPI)NonAf (>60 ml/min/1.73 sqM) Glucose (74-99) mg/dL Calcium (8.4-10.2) mg/dL Magnesium (1.6-2.3) mg/dL Total Bilirubin (0.2-1.3) mg/dL AST (14-36) U/L ALT (4-34) U/L Alkaline Phosphatase (38-126) U/L Troponin I 0.105 H* (0.000-0.034) ng/mL NT-Pro-B Natriuret Pep 99107 pg/mL Total Protein (6.3-8.2) g/dL Albumin (3.5-5.0) g/dL Disposition Clinical Impression: Pleural effusion, CHF (congestive heart failure), Pneumonia Disposition: ADMITTED IP TO THIS HOSP Condition: Stable Is patient prescribed a controlled substance at d/c from ED?: No Decision to Admit Reason: Admit from EC Decision Date: 04/13/21 Decision Time: 13:16
[2021-04-13 10:56] LABS: Basophils # (A) 0.1 k/uL (0-0.2); Basophils % (A) 1 %; Eosinophils # (A) 0.1 k/uL (0-0.7); Eosinophils % (A) 2 %; HCT 43.9 % (34.0-46.0); HGB 14.5 gm/dL (11.4-16.0); Lymphocytes # (A) 1.1 k/uL (1.0-4.8); Lymphocytes % (A) 17 %; MCH 31.1 pg (25.0-35.0); MCV 94.4 fL (80.0-100.0); Mean Platelet Volume 7.1; Monocytes # (A) 0.5 k/uL (0-1.0); Monocytes % (A) 8 %; Neutrophils # (A) 4.7 k/uL (1.3-7.7); Neutrophils % (A) 71 %; Platelet Count 321 k/uL (150-450); RBC 4.65 m/uL (3.80-5.40); RDW 15.2 % (11.5-15.5); WBC 6.6 k/uL (3.8-10.6)
[2021-04-13 11:06] LABS: ALT 20 U/L (4-34); African American GFR (CKD) >90 (>60 ml/min/1.73 sqM); Albumin 3.5 g/dL (3.5-5.0); Anion Gap 7 mmol/L; Blood Urea Nitrogen 25 mg/dL (7-17); Calcium 8.9 mg/dL (8.4-10.2); Carbon Dioxide 29 mmol/L (22-30); Chloride 96 mmol/L (98-107); Glucose 120 mg/dL (74-99); Magnesium 2.3 mg/dL (1.6-2.3); Non-African American GFR(CKD) 84 (>60 ml/min/1.73 sqM); Potassium 4.2 mmol/L (3.5-5.1); Sodium 132 mmol/L (137-145); Total Bilirubin 1.2 mg/dL (0.2-1.3); Total Protein 6.6 g/dL (6.3-8.2)
[2021-04-13 11:07] LABS: AST 38 U/L (14-36); Alkaline Phosphatase 124 U/L (38-126)
[2021-04-13 11:54] LABS: Partial Thromboplastin Time 23.7 sec (22.0-30.0); Prothrombin Time 10.5 sec (9.0-12.0)
[2021-04-13] MEDS ORDERED: NALOXONE 0.4 MG/ML 1 ML VIAL IV PRN (13:14)
--- NOTE | 2021-04-13 14:31 | XR ---
EXAMINATION TYPE: XR chest 2V DATE OF EXAM: 04/13/2021 COMPARISON: Chest x-ray dated 04/10/2021 HISTORY: Chest pain TECHNIQUE: Frontal and lateral views of the chest are obtained. FINDINGS: There is increase in the density of the posterior right lung base, blunting the costophren ic angle.. The heart is markedly enlarged. There is an underlying kyphosis. No evident pneumothorax. Patchy basilar density is present at the right lung base, there is a blunted right costophrenic angle . Interstitium is increased. Multiple old right-sided rib fractures are again noted. There are promin ent lung volumes consistent with underlying COPD. Osteoporotic compression fractures are noted. Bone mineralization is reduced. The aorta is dense. IMPRESSION: There may be increasing effusion, associated pneumonia versus atelectasis. Cardiomegaly. Multiple fractures.
[2021-04-13] MEDS: cefTRIAXone IN SWFI 1,000 MG/10 ML SYRINGE IVP STA ×2 (16:07→16:20)
[2021-04-13] MEDS: AZITHROMYCIN 500 MG in SODIUM CHLORIDE 0.9% 250 ML IVPB STA ×2 (16:07→16:19)
--- NOTE | 2021-04-13 16:40 | P.HPIM ---
History of Present Illness H&P Date: 04/13/21 Chief Complaint: Short of breath History of presenting complaint: This is a pleasant 85-year-old patient, follows with Dr. Lyle.. Lives at [facility] Does use a walker to get about. Chronic stable medical conditions include osteoarthritis, gait dysfunction, hypothyroid. 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 Admitted for COPD exacerbation, CHF exacerbation tracheobronchitis. EF less than 20%. Cardiac catheterization showed chronic disease. made DO NOT RESUSCITATE. Started on eliquis for left ventricular mass Readmitted from April 10- with unstable angina, CHF exacerbation. COPD exacerbation. Imdur 15 mg was added. Was doing better before discharge. Patient event to her assisted living yesterday. Patient sent back in today. Apparently her oxygen was turned off. She will short of breath. Some chest pressure. This congested cough. No obvious fever. Appetite is okay. Tired. Check stat x-rays showing infiltrate. Given IV cefepime in the ER. Sitting up. Some shortness of breath. Review of systems: GEN.: Tired EYES: None HEENT: None NECK: None RESPIRATORY: As above CARDIOVASCULAR: As above GASTROINTESTINAL: None GENITOURINARY: None MUSCULOSKELETAL: Joint pains LYMPHATICS: None HEMATOLOGICAL: None PSYCHIATRY: None NEUROLOGICAL: Uses a walker Past medical history to include: COPD, hypertension, osteoarthritis, hypothyroid, gait dysfunction. CAD-not amenable to intervention. CHF EF 20-25%, left ventricle mass Family history: Reviewed, noncontributory to presentation Physical examination: VITAL SIGNS: 97.3, 63, 20, 94/61, 99% on 4 L GENERAL: BMI 24.8, sitting up in bed, short of breath, bruising EYES: Pupils equal. Conjunctiva pale HEENT: External appearance of nose and ears normal, oral cavity grossly normal. NECK: JVD not raised; masses not palpable. HEART: First and second heart sounds are normal; no edema. LUNGS: Respiratory rate increased; Diminished breath sounds prolonged expiration , basal crackle ABDOMEN: Soft, nontender, liver spleen not palpable, no masses palpable. PSYCH: Alert and oriented x3; mood and affect slightly anxious MUSCULAR skeletal: Evidence of OA. NEUROLOGICAL: Cranial nerves grossly intact; no facial asymmetry, power and sensation grossly intact. LYMPHATICS: No lymph nodes palpable in the axilla and neck, INVESTIGATIONS, reviewed in the clinical context: White count 6.6 hemoglobin 14.5 platelets 321 potassium 4.2 BUN 25 creatinine 0.62 Troponin I 0.105, proBNP [id number] Chest x-ray film personally reviewed by me-cardiomegaly, pulmonary edema, right basilar atelectasis/infiltrate recent investigations Cardiac catheterization [March 21]: Calcified aorta as well as calcified right and left: chronic total occlusion of the RCA in the midportion. Good collaterals. 2-D echocardiogram: Left ventricle severely dilated. Global hypokinesis. EF less than 20%. Severe mitral regurgitation. Moderate tricuspid regurgitation. Moderate pulmonary hypertension. Left ventricular mass. Assessment and plan: -Possible right basilar pneumonia, suspect gram-negative organism IV ceftriaxone. -Acute severe COPD exacerbation ex-smoker: DuoNeb 4 times a day, inhaled steroids, long-acting beta agonist -Acute on chronic congestive heart exacerbation from systolic dysfunction EF less than 20%: IV Lasix 40 mg every 12, Toprol-XL. Aldactone -Coronary artery disease, not amenable to any intervention [patient a cardiac catheterization recently] Beta casey, Imdur -Severe mitral regurgitation, moderate tricuspid regurgitation. 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 Synthroid. -Gallstones. Asymptomatic -Acute on chronic medical debility -DO NOT RESUSCITATE Patient be started on IV ceftriaxone, bronchodilators, and his steroids. Home medications to be continued. Care was discussed with the patient. Prognosis guarded. Past Medical History Past Medical History: COPD, Hypertension, Osteoarthritis (OA) History of Any Multi-Drug Resistant Organisms: None Reported Past Surgical History: Orthopedic Surgery Additional Past Surgical History / Comment(s): lt ankle Past Anesthesia/Blood Transfusion Reactions: No Reported Reaction Additional Past Anesthesia/Blood Transfusion Reaction / Comment(s): no blood transfusions Past Psychological History: No Psychological Hx Reported Smoking Status: Former smoker Past Alcohol Use History: Rare Past Drug Use History: None Reported Medications and Allergies Home Medications Medication Instructions Recorded Confirmed Type SILVER sulfADIAZINE Cream 1 applic TOPICAL DAILY@0800 03/18/21 04/13/21 History [Silvadene 1% Cream] Acetaminophen Tab [Tylenol] 650 mg PO Q6HR PRN tab 03/23/21 04/13/21 Rx Apixaban [Eliquis] 5 mg PO BID@799,199904/10/21 04/13/21 History Atorvastatin Calcium [Lipitor] 40 mg PO HS@199904/10/21 04/13/21 History Budesonide [Pulmicort] 0.5 mg INHALATION RT-BID@799,199904/10/21 04/13/21 History Furosemide [Lasix] 20 mg PO BID@0800,119904/10/21 04/13/21 History Ipratropium-Albuterol Nebulize 3 ml INHALATION RT-QID 04/10/21 04/13/21 History [Duoneb 0.5 mg-3 mg/3 ml Soln] Metoprolol Succinate (ER) [Toprol 25 mg PO HS@199904/10/21 04/13/21 History XL] Spironolactone [Aldactone] 25 mg PO DAILY@79904/10/21 04/13/21 History lisinopriL [Zestril] 2.5 mg PO HS@199904/10/21 04/13/21 History Aspirin EC [Ecotrin Low Dose] 81 mg PO DAILY@79904/13/21 04/13/21 History Nicotine 21Mg/24Hr Patch [Habitrol] 1 patch TRANSDERM DAILY@79904/13/21 04/13/21 History Allergies Allergy/AdvReac Type Severity Reaction Status Date / Time No Known Allergies Allergy Verified 04/13/21 11:28 Physical Exam Vitals: Vital Signs Temp Pulse Resp BP Pulse Ox 04/13/21 13:12 61 18 105/66 95 04/13/21 11:32 57 L 20 95/58 100 04/13/21 10:29 20 04/13/21 10:20 97.3 F L 63 20 94/61 99 Intake and Output 04/13/21 04/13/21 04/13/21 06:59 14:59 22:59 Other: Weight 67.585 kg Results CBC & Chem 7: 04/13/21 10:44 04/13/21 10:44 Labs: Abnormal Lab Results - Last 24 Hours (Table) 04/13/21 04/13/21 Range/Units 10:44 10:44 Sodium 132 L (137-145) mmol/L Chloride 96 L (98-107) mmol/L BUN 25 H (7-17) mg/dL Glucose 120 H (74-99) mg/dL AST 38 H (14-36) U/L Troponin I 0.105 H* (0.000-0.034) ng/mL
[2021-04-13] MEDS: APIXABAN 5 MG TAB PO SCH (20:49)
[2021-04-13] MEDS: ATORVASTATIN 40 MG TAB PO SCH (20:49)
[2021-04-13] MEDS: BUDESONIDE 0.5 MG/2 ML NEBU INHALATION SCH (22:23)
[2021-04-13] MEDS: IPRATROPIUM-ALBUTEROL 3 ML NEB INHALATION SCH (22:24)
[2021-04-13] MEDS: FORMOTEROL FUMARATE 20 MCG/2 ML NEBU INHALATION SCH (22:24)
[2021-04-14] MEDS: BUDESONIDE 0.5 MG/2 ML NEBU INHALATION SCH ×2 (08:28→19:54)
[2021-04-14] MEDS: FORMOTEROL FUMARATE 20 MCG/2 ML NEBU INHALATION SCH ×2 (08:28→19:54)
[2021-04-14] MEDS: IPRATROPIUM-ALBUTEROL 3 ML NEB INHALATION SCH ×4 (08:28→19:54)
[2021-04-14] MEDS: SPIRONOLACTONE 25 MG TAB PO SCH (08:54)
[2021-04-14] MEDS: APIXABAN 5 MG TAB PO SCH ×2 (08:54→19:47)
[2021-04-14] MEDS: ASPIRIN 81 MG PO SCH (08:54)
[2021-04-14] MEDS: ACETAMINOPHEN TAB 325 MG TAB PO PRN ×2 (10:23→19:52)
[2021-04-14] MEDS: ATORVASTATIN 40 MG TAB PO SCH (19:47)
--- NOTE | 2021-04-14 20:06 | P.PN ---
Progress Note - Text Progress Note Date: 04/14/21 Chief Complaint: Short of breath History of presenting complaint: This is a pleasant 85-year-old patient, follows with Dr. Lyle.. Lives at [facility] Does use a walker to get about. Chronic stable medical conditions include osteoarthritis, gait dysfunction, hypothyroid. 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 Admitted for COPD exacerbation, CHF exacerbation tracheobronchitis. EF less than 20%. Cardiac catheterization showed chronic disease. made DO NOT RESUSCITATE. Started on eliquis for left ventricular mass Readmitted from April 10- with unstable angina, CHF exacerbation. COPD exacerbation. Imdur 15 mg was added. Was doing better before discharge. Patient event to her assisted living yesterday. Patient sent back in today. Apparently her oxygen was turned off. She will short of breath. Some chest pressure. This congested cough. No obvious fever. Appetite is okay. Tired. Check stat x-rays showing infiltrate. Given IV cefepime in the ER. Sitting up. Some shortness of breath. Admitted with possible pneumonia, COPD exacerbation, April 14: Sitting up in a chair. A bit tired. Some shortness of breath. Patient came to go back to her place. No chest pain. Eating some. Care was discussed in detail with the patient. The guarded prognosis was discussed with the view of cardio pulmonary status. Discussion of hospice was brought in. She is agreeable and wanted me to discuss it with her daughter. Advanced care planning: Discussed with patient's daughter over the phone. She understands the overall picture. Understands that the mother is declining. Feels hospice is appropriate and agreeable to the same. I called the nursing chart at this assisted living [facility], [phone] and they use [facility]. I did call the daughter back. She is agreeable to proceed with hospice after patient assistance to the assisted living. The current medications be continued. Questions were answered. Plan is to make arrangements for informational visit tomorrow being coordinated by [facility]. Total time spent for this was 20 minutes Review of systems: Was done for constitutional, cardiovascular, GI, pulmonary. relevant finding as above Active Medications Acetaminophen (Acetaminophen Tab 325 Mg Tab) 650 mg PO Q6HR PRN PRN Reason: Mild Pain or Fever > 100.5 Last Admin: 04/14/21 19:52 Dose: 650 mg Documented by: Albuterol/Ipratropium (Ipratropium-Albuterol 3 Ml Neb) 3 ml INHALATION RT-QID [facility] Last Admin: 04/14/21 19:54 Dose: 3 ml Documented by: Apixaban (Apixaban 5 Mg Tab) 5 mg PO BID@ [facility]; Protocol Last Admin: 04/14/21 19:47 Dose: 5 mg Documented by: Aspirin (Aspirin 81 Mg) 81 mg PO DAILY@799 [facility] Last Admin: 04/14/21 08:54 Dose: 81 mg Documented by: Atorvastatin Calcium (Atorvastatin 40 Mg Tab) 40 mg PO HS@1999 [facility] Last Admin: 04/14/21 19:47 Dose: 40 mg Documented by: Budesonide (Budesonide 0.5 Mg/2 Ml Nebu) 0.5 mg INHALATION RT-BID@ [facility] Last Admin: 04/14/21 19:54 Dose: 0.5 mg Documented by: Formoterol Fumarate (Formoterol Fumarate 20 Mcg/2 Ml Nebu) 20 mcg INHALATION RT-BID [facility] Last Admin: 04/14/21 19:54 Dose: 20 mcg Documented by: Ceftriaxone Sodium 1 gm/ (Sodium Chloride) 50 mls @ 100 mls/hr IVPB Q12HR [facility] Last Admin: 04/14/21 08:54 Dose: 100 mls/hr Documented by: Naloxone HCl (Naloxone 0.4 Mg/Ml 1 Ml Vial) 0.2 mg IV Q2M PRN PRN Reason: Opioid Reversal Silver Sulfadiazine (Silver Sulfadiazine 1% Cream 25 Gm Tube) 1 applic TOPICAL DAILY@799 [facility] Last Admin: 04/14/21 16:02 Dose: Not Given Documented by: Spironolactone (Spironolactone 25 Mg Tab) 25 mg PO DAILY@799 [facility] Last Admin: 04/14/21 08:54 Dose: 25 mg Documented by: Past medical history to include: COPD, hypertension, osteoarthritis, hypothyroid, gait dysfunction. CAD-not amenable to intervention. CHF EF 20-25%, left ventricle mass Family history: Reviewed, noncontributory to presentation Physical examination: VITAL SIGNS: Afebrile, 78, 18, 97/60, 95% on 4 L GENERAL: Declining in a chair, tired, short of breath EYES: Pupils equal. Conjunctiva pale HEENT: External appearance of nose and ears normal, oral cavity grossly normal. NECK: JVD not raised; masses not palpable. HEART: First and second heart sounds are normal; no edema. LUNGS: Respiratory rate increased; Diminished breath sounds prolonged expiration , basal crackle ABDOMEN: Soft, nontender, liver spleen not palpable, no masses palpable. PSYCH: Alert and oriented x3; mood and affect slightly anxious MUSCULAR skeletal: Evidence of OA. INVESTIGATIONS, reviewed in the clinical context: April 14: Pro-calcitonin 0.07 White count 6.6 hemoglobin 14.5 platelets 321 potassium 4.2 BUN 25 creatinine 0.62 Troponin I 0.105, proBNP [id number] Chest x-ray film personally reviewed by me-cardiomegaly, pulmonary edema, right basilar atelectasis/infiltrate recent investigations Cardiac catheterization [March 21]: Calcified aorta as well as calcified right and left: chronic total occlusion of the RCA in the midportion. Good collaterals. 2-D echocardiogram: Left ventricle severely dilated. Global hypokinesis. EF less than 20%. Severe mitral regurgitation. Moderate tricuspid regurgitation. Moderate pulmonary hypertension. Left ventricular mass. Assessment and plan: -Possible right basilar pneumonia, suspect gram-negative organism IV ceftriaxone. Changed to Omnicef -Acute severe COPD exacerbation ex-smoker: Slow to respond DuoNeb 4 times a day, inhaled steroids, long-acting beta agonist -Acute on chronic congestive heart exacerbation from systolic dysfunction EF less than 20%: IV Lasix 40 mg every 12-changed to by mouth Lasix 20 mg twice a day, Toprol-XL. Aldactone -Coronary artery disease, not amenable to any intervention [patient a cardiac catheterization recently] Beta casey, Imdur -Severe mitral regurgitation, moderate tricuspid regurgitation. 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 Synthroid. -Gallstones. Asymptomatic -Acute on chronic medical debility -DO NOT RESUSCITATE DC IV ceftriaxone. By mouth and reset 300 mg twice a day. By mouth Lasix 20 mg twice a day. Plan this was patient to return to assisted living with [facility] hospice tomorrow.
[2021-04-14] MEDS: FUROSEMIDE 20 MG TAB PO SCH (20:24)
[2021-04-14] MEDS: CEFDINIR 300 MG CAP PO SCH (20:24)
[2021-04-15 01:09] VITALS: TEMP 97.9
[2021-04-15] MEDS: ACETAMINOPHEN TAB 325 MG TAB PO PRN (03:06)
[2021-04-15 07:46] LABS: African American GFR (CKD) >90 (>60 ml/min/1.73 sqM); Anion Gap 7 mmol/L; Blood Urea Nitrogen 21 mg/dL (7-17); Calcium 8.8 mg/dL (8.4-10.2); Carbon Dioxide 27 mmol/L (22-30); Chloride 97 mmol/L (98-107); Glucose 91 mg/dL (74-99); Non-African American GFR(CKD) 88 (>60 ml/min/1.73 sqM); Potassium 4.4 mmol/L (3.5-5.1); Sodium 131 mmol/L (137-145)
[2021-04-15 08:23] VITALS: BP 103/65; RESP 18
[2021-04-15] MEDS: APIXABAN 5 MG TAB PO SCH (08:26)
[2021-04-15] MEDS: SPIRONOLACTONE 25 MG TAB PO SCH (08:26)
[2021-04-15] MEDS: CEFDINIR 300 MG CAP PO SCH (08:26)
[2021-04-15] MEDS: FUROSEMIDE 20 MG TAB PO SCH (08:26)
[2021-04-15] MEDS: ASPIRIN 81 MG PO SCH (08:26)
[2021-04-15] MEDS: FORMOTEROL FUMARATE 20 MCG/2 ML NEBU INHALATION SCH (08:46)
[2021-04-15] MEDS: IPRATROPIUM-ALBUTEROL 3 ML NEB INHALATION SCH ×2 (08:46→11:56)
[2021-04-15] MEDS: BUDESONIDE 0.5 MG/2 ML NEBU INHALATION SCH (08:46)
[2021-04-15 12:09] VITALS: PULSE 70
--- NOTE | 2021-04-15 12:22 | CDI ---
Documentation Clarification Form Date: 04/15/2021 12:13:41 PM From: Shruti Villarreal CCS, CCDS Admit Date: 04/14/2021 12:55:00 PM Patient Name: rEnestine Apple Visit Number: [id number] Discharge Date: ATTENTION: The Clinical Documentation Specialists (CDI) and [facility] Coding Staff appreciate your assistance in clarifying documentation. Please respond to the clarification below the line at the bottom and electronically sign. The CDI & [facility] Coding staff will review the response and follow-up if needed. Please note: Queries are made part of the Legal Health Record. If you have any questions, please contact the author of this message via ITS. Dr. Refugio Jonas: Per the 04/13 ED Note, the patient presented hypoxic, normally on 4L Home O2, but her O2 had been turned off, also has documented severe COPD, ex-smoker and admitted with Gram Negative Pneumonia Based on this information and the findings below, is there an additional diagnosis that is clinically appropriate for this patient? History/Risk Factors per the 04/13 ED Note: COPD on 4L Home O2, Former smoker, Hypertension, OA. Clinical Indicators: Presented to the ED from an [facility] via EMS on 04/13 with Chest Pain & SOB. ED Clinical Impression: Pleural Effusion, CHF, Pneumonia 04/13 VS: 97.3, P 63 - 57, R 20 (sob), BP 94/61, PO 99 4Lnc - 1000 4Lnc, BMI: 19.7 04/13 LAB: Na 132, Cl 96, BUN 25, Glucose 120, AST 38, Troponin 0.105, 0.090, 0.081 04/13 CXR: Increasing effusion, associated pneumonia or atelectasis. Cardiomegaly. Multiple rt side rib fractures, previously noted. Treatment: O2 4Lnc, IV Azithromycin, IV Rocephin, INH Duoneb, INH Pulmicort, INH Perforomist, IV Rocephin . Is there an additional diagnosis that is clinically appropriate for this patient? [ ] Acute Hypoxic Respiratory Failure [ ] Acute on Chronic Respiratory Failure [ ] Chronic Respiratory Failure [ ] Other Diagnosis, please specify [ ] Unable to determine (Template Last Revised: November 2020) Chronic hypoxic respiratory failure from advanced COPD MTDD
--- NOTE | 2021-04-15 12:34 | P.DS ---
Providers Date of admission: 04/14/21 12:55 Expected date of discharge: 04/15/21 Attending physician: Refugio Jonas Primary care physician: Calin Lyle [facility] Course: Chief Complaint: Short of breath History of presenting complaint: This is a pleasant 85-year-old patient, follows with Dr. Lyle.. Lives at [facility] Does use a walker to get about. Chronic stable medical conditions include osteoarthritis, gait dysfunction, hypothyroid. 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 Admitted for COPD exacerbation, CHF exacerbation tracheobronchitis. EF less than 20%. Cardiac catheterization showed chronic disease. made DO NOT RESUSCITATE. Started on eliquis for left ventricular mass Readmitted from April 10 with unstable angina, CHF exacerbation. COPD exacerbation. Imdur 15 mg was added. Was doing better before discharge. Patient event to her assisted living yesterday. Patient sent back in today. Apparently her oxygen was turned off. She will short of breath. Some chest pressure. This congested cough. No obvious fever. Appetite is okay. Tired. Check stat x-rays showing infiltrate. Given IV cefepime in the ER. Sitting up. Some shortness of breath. Admitted with possible pneumonia, COPD exacerbation, April 14: Sitting up in a chair. A bit tired. Some shortness of breath. Patient came to go back to her place. No chest pain. Eating some. Care was discussed in detail with the patient. The guarded prognosis was discussed with the view of cardio pulmonary status. Discussion of hospice was brought in. She is agreeable and wanted me to discuss it with her daughter. Advanced care planning: Discussed with patient's daughter over the phone. She understands the overall picture. Understands that the mother is declining. Feels hospice is appropriate and agreeable to the same. I called the nursing chart at this assisted living [facility], [phone] and they use [facility]. I did call the daughter back. She is agreeable to proceed with hospice after patient assistance to the assisted living. The current medications be continued. Questions were answered. Plan is to make arrangements for informational visit tomorrow being coordinated by [facility]. Total time spent for this was 20 minutes April 15: Sitting up. Slightly short of breath and tired. Discussed about laying back with hospice. Questions answered. Spoke to patient's daughter. [facility] meeting them at this assisted living with the patient to di scuss the details. Discussion and discharge planning more than 35 minutes Past medical history to include: COPD, hypertension, osteoarthritis, hypothyroid, gait dysfunction. CAD-not amenable to intervention. CHF EF 20-25%, left ventricle mass Family history: Reviewed, noncontributory to presentation Physical examination: VITAL SIGNS: 97.9, 16, 18, 103/65, 95% on 4 L GENERAL: Declining in a chair, tired, short of breath EYES: Pupils equal. Conjunctiva pale HEENT: External appearance of nose and ears normal, oral cavity grossly normal. NECK: JVD not raised; masses not palpable. HEART: First and second heart sounds are normal; no edema. LUNGS: Respiratory rate increased; Diminished breath sounds prolonged expiration , basal crackle ABDOMEN: Soft, nontender, liver spleen not palpable, no masses palpable. PSYCH: Alert and oriented x3; mood and affect slightly anxious MUSCULAR skeletal: Evidence of OA. INVESTIGATIONS, reviewed in the clinical context: April 14: Pro-calcitonin 0.07 White count 6.6 hemoglobin 14.5 platelets 321 potassium 4.2 BUN 25 creatinine 0.62 Troponin I 0.105, proBNP 64769 Chest x-ray film personally reviewed by me-cardiomegaly, pulmonary edema, right basilar atelectasis/infiltrate recent investigations Cardiac catheterization [March 21]: Calcified aorta as well as calcified right and left: chronic total occlusion of the RCA in the midportion. Good collaterals. 2-D echocardiogram: Left ventricle severely dilated. Global hypokinesis. EF less than 20%. Severe mitral regurgitation. Moderate tricuspid regurgitation. Moderate pulmonary hypertension. Left ventricular mass. Assessment and plan: -Possible right basilar pneumonia, suspect gram-negative organism IV ceftriaxone. Omnicef for 3 more days -Acute severe COPD exacerbation ex-smoker: Some improvement DuoNeb 4 times a day, inhaled steroids, -Acute on chronic congestive heart exacerbation from systolic dysfunction EF less than 20%: IV Lasix 40 mg every 12-changed to by mouth Lasix 20 mg twice a day, Toprol-XL. Aldactone -Coronary artery disease, not amenable to any intervention [patient a cardiac catheterization recently] Beta casey, Imdur -Severe mitral regurgitation, moderate tricuspid regurgitation. 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 Synthroid. -Gallstones. Asymptomatic -Acute on chronic medical debility -DO NOT RESUSCITATE Disposition: Assisted living at [facility]. [facility] will be [facility] on arrival Patient Condition at Discharge: Stable Plan - Discharge Summary New Discharge Prescriptions: New Cefdinir [Omnicef] 300 mg PO BID #6 cap Isosorbide Mononitrate ER [Imdur] 15 mg PO DAILY #30 dose Nitroglycerin Sl Tabs [Nitrostat] 0.4 mg SUBLINGUAL Q5M PRN #25 tab PRN Reason: Angina Continue SILVER sulfADIAZINE Cream [Silvadene 1% Cream] 1 applic TOPICAL DAILY@0800 Apixaban [Eliquis] 5 mg PO BID@0800,1999 Furosemide [Lasix] 20 mg PO BID@0800,1200 Ipratropium-Albuterol Nebulize [Duoneb 0.5 mg-3 mg/3 ml Soln] 3 ml INHALATION RT-QID Spironolactone [Aldactone] 25 mg PO DAILY@0800 Acetaminophen Tab [Tylenol] 650 mg PO Q6HR PRN tab PRN Reason: Mild Pain Or Fever > 100.5 Atorvastatin Calcium [Lipitor] 40 mg PO HS@1999 Budesonide [Pulmicort] 0.5 mg INHALATION RT-BID@799,1999 Aspirin EC [Ecotrin Low Dose] 81 mg PO DAILY@0800 Discontinued lisinopriL [Zestril] 2.5 mg PO HS@1999 Metoprolol Succinate (ER) [Toprol XL] 25 mg PO HS@1999 Nicotine 21Mg/24Hr Patch [Habitrol] 1 patch TRANSDERM DAILY@0800 Discharge Medication List SILVER sulfADIAZINE Cream [Silvadene 1% Cream] 1 applic TOPICAL DAILY@0800 03/18/21 [History] Acetaminophen Tab [Tylenol] 650 mg PO Q6HR PRN tab 03/23/21 [Rx] Apixaban [Eliquis] 5 mg PO BID@0800,199904/10/21 [History] Atorvastatin Calcium [Lipitor] 40 mg PO HS@199904/10/21 [History] Budesonide [Pulmicort] 0.5 mg INHALATION RT-BID@0800,2000 04/10/21 [History] Furosemide [Lasix] 20 mg PO BID@0800,1200 04/10/21 [History] Ipratropium-Albuterol Nebulize [Duoneb 0.5 mg-3 mg/3 ml Soln] 3 ml INHALATION RT-QID 04/10/21 [History] Spironolactone [Aldactone] 25 mg PO DAILY@0804/10/21 [History] Aspirin EC [Ecotrin Low Dose] 81 mg PO DAILY@0804/13/21 [History] Cefdinir [Omnicef] 300 mg PO BID #6 cap 04/15/21 [Rx] Isosorbide Mononitrate ER [Imdur] 15 mg PO DAILY #30 dose 04/15/21 [Rx] Nitroglycerin Sl Tabs [Nitrostat] 0.4 mg SUBLINGUAL Q5M PRN #25 tab 04/15/21 [Rx] Follow up Appointment(s)/Referral(s): [facility], [NON-STAFF] - (Patient family will call to set up appt. ) Calin Lyle DO [Primary Care Provider] - 1-2 days (Patient family to call and schedule appt. ) Patient Instructions/Handouts: Heart Failure (DC), Pneumonia (DC) Activity/Diet/Wound Care/Special Instructions: NURSE At D/c please call [facility] [phone], to make sure the meds are sent to [facility] so patient will get them right away. Please do not change her pharmacy because this is who [facility] deals with for the patients meds. [facility] to weigh daily and keep log. (Nurse, Please make sure patient leaves with the scale in her room) [facility]
== END 2021-04-15 12:52 | disposition home or self-care (01) | DRG 177 ==
LOC: EC 10:19 → 3SCARD 13:27 → OBSVTOIN 04-14 12:55
PROVIDERS: ADMIT Hospitalist; ATTEND Hospitalist
DX: J15.6 Pneumonia due to other Gram-negative bacteria (principal); I50.23 Acute on chronic systolic (congestive) heart failure; J44.1 Chronic obstructive pulmonary disease with (acute) exacerbation; J44.0 Chronic obstructive pulmonary disease with (acute) lower respiratory infection; J96.11 Chronic respiratory failure with hypoxia; E03.9 Hypothyroidism, unspecified; I08.1 Rheumatic disorders of both mitral and tricuspid valves; I11.0 Hypertensive heart disease with heart failure; R53.81 Other malaise; I25.10 Atherosclerotic heart disease of native coronary artery without angina pectoris; R26.9 Unspecified abnormalities of gait and mobility; I27.23 Pulmonary hypertension due to lung diseases and hypoxia; K80.20 Calculus of gallbladder without cholecystitis without obstruction; M15.9 Polyosteoarthritis, unspecified; R09.02 Hypoxemia; Z66 Do not resuscitate; Z79.01 Long term (current) use of anticoagulants; Z79.82 Long term (current) use of aspirin; Z79.899 Other long term (current) drug therapy; Z87.891 Personal history of nicotine dependence
CPT/HCPCS: 36415; 71046; 80048; 80053; 83735; 83880; 84145; 84484; 85025; 85610; 85730; 87040; 93005; 94640; 99285